=== PATIENT | female | born 1945 | race Caucasian/White ===

== ENCOUNTER 2017-09-10 18:52 | Emergency (ER) | payer MEDICARE, SELFPAY | END 2017-09-10 22:02 | disposition home or self-care (01) | PROVIDERS: Emergency Provider Emergency Medicine; Family Provider Internal Medicine; Visit Provider Emergency Medicine | DX: S42.201A Unspecified fracture of upper end of right humerus, initial encounter for closed fracture (principal); S62.616A Displaced fracture of proximal phalanx of right little finger, initial encounter for closed fracture; W01.0XXA Fall on same level from slipping, tripping and stumbling without subsequent striking against object, initial encounter; Y92.019 Unspecified place in single-family (private) house as the place of occurrence of the external cause | CPT/HCPCS: 29130; 73030; 73060; 73110; 73140; 96374; 96375; 99285; J2405 ==

== ENCOUNTER → 2018-04-11 15:31 | Outpatient (REF) | payer MEDICARE, SELFPAY | LOC: LAB 15:31 | PROVIDERS: Visit Provider Urology | DX: R39.89 Other symptoms and signs involving the genitourinary system (principal) | CPT/HCPCS: 87086; 87088; 87186 ==

== ENCOUNTER → 2018-04-18 13:20 | Outpatient (CLI) | payer MEDICARE, SELFPAY | PROVIDERS: PCP Internal Medicine; Visit Provider Internal Medicine | DX: G47.10 Hypersomnia, unspecified (principal); G47.30 Sleep apnea, unspecified; R06.83 Snoring; E66.9 Obesity, unspecified | CPT/HCPCS: 95806 ==

== ENCOUNTER 2018-05-02 09:52 | Outpatient (CLI) | payer MEDICARE, SELFPAY ==
[2018-05-02 09:55] VITALS: BMI 28.0
[2018-05-02 10:27] LABS: Albumin Level 3.6 gm/dL (3.4-5.0); Calcium 9.8 mg/dL (8.5-10.1); Creatinine Clearance Estimated 58 mL/min (0-300); Creatinine,Serum 0.85 mg/dL (0.55-1.02); Estimated Glomerular Filt Rate 66 ml/min (>60); GFR (African American) 80 ML/MIN (>60)
[2018-05-02 10:50] VITALS: BP 124/86; PULSE 74; RESP 18; TEMP 36.9
== END 2018-05-02 11:10 | disposition home or self-care (01) ==
LOC: INF 09:52
PROVIDERS: Family Provider Internal Medicine; PCP Internal Medicine; Visit Provider Internal Medicine
DX: M81.0 Age-related osteoporosis without current pathological fracture (principal)
CPT/HCPCS: 82040; 82310; 82565; 96374; J3489

== ENCOUNTER → 2018-05-23 17:20 | Outpatient (REF) | payer MEDICARE, SELFPAY | LOC: LAB 17:20 | PROVIDERS: Visit Provider Urology | DX: N30.20 Other chronic cystitis without hematuria (principal) | CPT/HCPCS: 87086; 87088; 87186 ==

== ENCOUNTER 2018-05-27 08:43 | Outpatient (CLI) | payer MEDICARE, SELFPAY ==
[2018-05-27 09:09] VITALS: BP 146/79; PULSE 79; RESP 18; TEMP 36.4; O2SAT 98; BMI 28.8
[2018-05-27 09:30] VITALS: BP 146/79; PULSE 18; RESP 20; TEMP 36.7; O2SAT 96
[2018-05-27 10:28] VITALS: BP 139/73; PULSE 68; RESP 20; TEMP 36.9; O2SAT 96
== END 2018-05-27 10:25 | disposition home or self-care (01) ==
LOC: INF 08:44
PROVIDERS: Family Provider Internal Medicine; PCP Internal Medicine; Visit Provider Urology
DX: N30.20 Other chronic cystitis without hematuria (principal)
CPT/HCPCS: 96365; J1335

== ENCOUNTER → 2018-05-28 08:49 | Outpatient (CLI) | payer MEDICARE, SELFPAY ==
[2018-05-28 09:02] VITALS: BP 146/77; PULSE 81; RESP 18; TEMP 36.2; O2SAT 98; BMI 28.8
[2018-05-28 09:55] VITALS: BP 149/81; PULSE 62; RESP 18; TEMP 36.3; O2SAT 98
== END ==
PROVIDERS: Family Provider Internal Medicine; PCP Internal Medicine; Visit Provider Urology
DX: N30.20 Other chronic cystitis without hematuria (principal)
CPT/HCPCS: 96365; J1335

== ENCOUNTER 2018-05-29 09:05 | Outpatient (CLI) | payer MEDICARE, SELFPAY ==
[2018-05-29 09:25] VITALS: BP 161/93; PULSE 89; RESP 20; TEMP 36.7; O2SAT 96
[2018-05-29 10:05] VITALS: BP 154/87; PULSE 68; RESP 20; TEMP 36.9; O2SAT 96
== END 2018-05-29 10:05 | disposition home or self-care (01) ==
LOC: INF 09:14
PROVIDERS: Family Provider Internal Medicine; PCP Internal Medicine; Visit Provider Urology
DX: N30.20 Other chronic cystitis without hematuria (principal)
CPT/HCPCS: 96365; J1335

== ENCOUNTER 2018-05-30 08:50 | Outpatient (CLI) | payer MEDICARE, SELFPAY ==
[2018-05-30 09:07] VITALS: BP 112/76; PULSE 64; RESP 18; TEMP 36.4; O2SAT 97
[2018-05-30 09:37] VITALS: BP 123/75; PULSE 69; RESP 18; O2SAT 96
[2018-05-30 09:55] VITALS: BP 131/65; PULSE 71; RESP 18; O2SAT 97
== END 2018-05-30 09:55 | disposition home or self-care (01) ==
LOC: INF 08:51
PROVIDERS: PCP Internal Medicine; Visit Provider Urology
DX: N30.20 Other chronic cystitis without hematuria (principal)
CPT/HCPCS: 96365; J1335

== ENCOUNTER 2018-05-31 08:40 | Outpatient (CLI) | payer MEDICARE, SELFPAY ==
[2018-05-31 09:04] VITALS: BP 132/71; PULSE 67; RESP 18; TEMP 36.6; O2SAT 98
[2018-05-31 09:34] VITALS: BP 129/74; PULSE 69; RESP 18; O2SAT 97
[2018-05-31 09:50] VITALS: BP 126/78; PULSE 58; RESP 18; O2SAT 98
== END 2018-05-31 09:55 | disposition home or self-care (01) ==
LOC: INF 08:53
PROVIDERS: Family Provider Internal Medicine; PCP Internal Medicine; Visit Provider Urology
DX: N30.20 Other chronic cystitis without hematuria (principal)
CPT/HCPCS: 96365; J1335

== ENCOUNTER 2018-06-01 08:50 | Outpatient (CLI) | payer MEDICARE, SELFPAY ==
[2018-06-01 09:27] VITALS: BP 135/79; PULSE 71; RESP 18; TEMP 36.6; O2SAT 98
[2018-06-01 09:57] VITALS: BP 131/74; PULSE 74; RESP 18; O2SAT 97
[2018-06-01 10:10] VITALS: BP 134/76; PULSE 76; RESP 18; O2SAT 98
== END 2018-06-01 10:15 | disposition home or self-care (01) ==
LOC: INF 08:52
PROVIDERS: PCP Internal Medicine; Visit Provider Urology
DX: N30.20 Other chronic cystitis without hematuria (principal)
CPT/HCPCS: 96365; J1335

== ENCOUNTER 2018-06-02 08:57 | Outpatient (CLI) | payer MEDICARE, SELFPAY ==
[2018-06-02 09:02] VITALS: BP 141/83; PULSE 65; RESP 18; TEMP 36.4; O2SAT 97
[2018-06-02 09:50] VITALS: BP 136/64; PULSE 60; RESP 18; TEMP 36.5; O2SAT 98
== END 2018-06-02 09:55 | disposition home or self-care (01) ==
LOC: INF 08:57
PROVIDERS: Family Provider Internal Medicine; PCP Internal Medicine; Visit Provider Urology
DX: N30.20 Other chronic cystitis without hematuria (principal)
CPT/HCPCS: 96365; J1335

== ENCOUNTER 2018-06-03 08:44 | Outpatient (CLI) | payer MEDICARE, SELFPAY ==
[2018-06-03 09:07] VITALS: BP 161/77; PULSE 92; RESP 18; O2SAT 100
== END 2018-06-03 09:50 | disposition home or self-care (01) ==
LOC: INF 08:45
PROVIDERS: Family Provider Internal Medicine; PCP Internal Medicine; Visit Provider Urology
DX: N30.20 Other chronic cystitis without hematuria (principal)
CPT/HCPCS: 96365; J1335

== ENCOUNTER 2018-06-04 08:38 | Outpatient (CLI) | payer MEDICARE, SELFPAY ==
[2018-06-04 08:45] VITALS: BP 144/78; PULSE 68; RESP 16; TEMP 36.5; O2SAT 95
== END 2018-06-04 10:00 | disposition home or self-care (01) ==
LOC: INF 08:39
PROVIDERS: Family Provider Internal Medicine; PCP Internal Medicine; Visit Provider Urology
DX: N30.20 Other chronic cystitis without hematuria (principal)
CPT/HCPCS: 96365; J1335

== ENCOUNTER 2018-06-05 08:56 | Outpatient (CLI) | payer MEDICARE, SELFPAY ==
[2018-06-05 09:10] VITALS: BP 132/77; PULSE 71; RESP 18; TEMP 36.6; O2SAT 99
[2018-06-05 09:40] VITALS: BP 130/78; PULSE 76; RESP 18; O2SAT 98
[2018-06-05 09:50] VITALS: BP 131/72; PULSE 74; RESP 18; O2SAT 99
== END 2018-06-05 09:55 | disposition home or self-care (01) ==
LOC: INF 08:56
PROVIDERS: Family Provider Internal Medicine; PCP Internal Medicine; Visit Provider Urology
DX: N30.20 Other chronic cystitis without hematuria (principal)
CPT/HCPCS: 96365; J1335

== ENCOUNTER → 2018-06-13 16:49 | Outpatient (REF) | payer MEDICARE, SELFPAY | LOC: LAB 16:49 | PROVIDERS: Visit Provider Urology | DX: N30.20 Other chronic cystitis without hematuria (principal) | CPT/HCPCS: 87086; 87088; 87186 ==

== ENCOUNTER → 2018-07-04 16:52 | Outpatient (CLI) | payer MEDICARE, SELFPAY | PROVIDERS: Visit Provider Urology | DX: N39.0 Urinary tract infection, site not specified (principal) | CPT/HCPCS: 87086 ==

== ENCOUNTER → 2019-01-09 16:38 | Outpatient (CLI) | payer MEDICARE, SELFPAY | PROVIDERS: Visit Provider Urology | DX: R39.89 Other symptoms and signs involving the genitourinary system (principal) | CPT/HCPCS: 87086; 87088; 87186 ==

== ENCOUNTER → 2019-02-06 16:36 | Outpatient (CLI) | payer MEDICARE, SELFPAY | PROVIDERS: Visit Provider Urology | DX: N39.0 Urinary tract infection, site not specified (principal) | CPT/HCPCS: 87086; 87088; 87186 ==

== ENCOUNTER 2019-02-09 12:40 | Outpatient (CLI) | payer MEDICARE, SELFPAY ==
[2019-02-09 13:12] VITALS: BP 151/94; PULSE 77; RESP 20; TEMP 36.9; O2SAT 95
[2019-02-09 13:40] VITALS: BP 145/74; PULSE 68; RESP 20; TEMP 36.9
== END 2019-02-09 13:40 | disposition home or self-care (01) ==
LOC: INF 12:40
PROVIDERS: Visit Provider Urology
DX: N39.0 Urinary tract infection, site not specified (principal)
CPT/HCPCS: 96365; J1335

== ENCOUNTER 2019-02-10 12:32 | Outpatient (CLI) | payer MEDICARE, SELFPAY ==
[2019-02-10 12:49] VITALS: BP 143/76; PULSE 67; RESP 16; O2SAT 98
[2019-02-10 13:43] VITALS: BP 136/79; PULSE 77; RESP 16; O2SAT 97
== END 2019-02-10 14:20 | disposition home or self-care (01) ==
LOC: INF 12:35
PROVIDERS: PCP Internal Medicine; Visit Provider Urology
DX: N39.0 Urinary tract infection, site not specified (principal)
CPT/HCPCS: 96365; J1335

== ENCOUNTER → 2019-02-11 11:41 | Outpatient (CLI) | payer MEDICARE, SELFPAY ==
[2019-02-11 12:35] VITALS: BP 120/72; PULSE 62; RESP 18; O2SAT 98
[2019-02-11 12:55] VITALS: BP 128/72; PULSE 70; RESP 18; O2SAT 97
== END ==
PROVIDERS: PCP Internal Medicine; Visit Provider Urology
DX: N39.0 Urinary tract infection, site not specified (principal)
CPT/HCPCS: 96365; J1335

== ENCOUNTER → 2019-02-12 12:25 | Outpatient (CLI) | payer MEDICARE, SELFPAY ==
[2019-02-12 13:03] VITALS: BP 144/76; PULSE 71; RESP 18; TEMP 36.8; O2SAT 99; BMI 29.4
[2019-02-12 13:16] LABS: Anion Gap 10.4 mEq/L (5-15); Blood Urea Nitrogen 20 mg/dL (7-18); Calcium 9.9 mg/dL (8.5-10.1); Carbon Dioxide 28 mmol/L (21.0-32.0); Chloride 107 mmol/L (98-107); Creatinine Clearance Estimated 60 mL/min (50-200); Creatinine,Serum 0.93 mg/dL (0.55-1.02); Estimated Glomerular Filt Rate 59 ml/min (>60); GFR (African American) 72 ML/MIN (>60); Glucose 90 mg/dL (74-106); Potassium 4.4 mmoL/L (3.5-5.1); Sodium 141 mmol/L (136-145)
[2019-02-12 14:28] VITALS: BP 170/80; PULSE 75; RESP 16; TEMP 36.6; O2SAT 98
--- NOTE | 2019-02-12 14:30 | PC.NURSE ---
PT HAD A ELEVATED BP OF 170/80. PT STATES SHE IS NOT ON ANY BLOOD PRESSURE MEDICATION AND EVERY TIME SHE GOES TO THE DOCTOR IT IS HIGH. PT STATED SHE WOULD TAKE BP WHEN SHE GOT HOME AND IF IT WAS NOT ANY BETTER SHE WOULD MAKE A DOCTORS APPOINTMENT FOR THIS WEEK.
== END ==
PROVIDERS: PCP Internal Medicine; Visit Provider Urology
DX: N39.0 Urinary tract infection, site not specified (principal)
CPT/HCPCS: 80048; 96365; G0463; J1335

== ENCOUNTER 2019-02-13 12:30 | Outpatient (CLI) | payer MEDICARE, SELFPAY ==
[2019-02-13 12:30] VITALS: BP 152/94; PULSE 72; RESP 20; TEMP 36.8; O2SAT 100
[2019-02-13 12:49] VITALS: BP 152/94; PULSE 77; RESP 20; TEMP 36.8; O2SAT 98
[2019-02-13 13:25] VITALS: BP 166/98; PULSE 70; RESP 18; TEMP 36.8; O2SAT 98
[2019-02-13 13:36] VITALS: BMI 29.2
== END 2019-02-13 13:25 | disposition home or self-care (01) ==
LOC: INF 13:11
PROVIDERS: Visit Provider Urology
DX: N39.0 Urinary tract infection, site not specified (principal)
CPT/HCPCS: 96365; J1335

== ENCOUNTER 2019-02-14 10:03 | Outpatient (CLI) | payer MEDICARE, SELFPAY ==
[2019-02-14 10:18] VITALS: BP 154/83; PULSE 68; RESP 18; TEMP 36.6; O2SAT 96
[2019-02-14 11:00] VITALS: BP 132/81; PULSE 64; RESP 16; TEMP 36.7; O2SAT 99
== END 2019-02-14 11:00 | disposition home or self-care (01) ==
LOC: INF 10:03
PROVIDERS: Visit Provider Urology
DX: N39.0 Urinary tract infection, site not specified (principal)
CPT/HCPCS: 96365; J1335

== ENCOUNTER 2019-02-15 09:44 | Outpatient (CLI) | payer MEDICARE, SELFPAY ==
[2019-02-15 10:15] VITALS: BP 141/90; PULSE 61; RESP 18; TEMP 36.8; O2SAT 94
[2019-02-15 11:05] VITALS: BP 149/80; PULSE 63; RESP 18; O2SAT 99
== END 2019-02-15 11:05 | disposition home or self-care (01) ==
LOC: INF 09:44
PROVIDERS: Visit Provider Urology
DX: N39.0 Urinary tract infection, site not specified (principal)
CPT/HCPCS: 96365; J1335

== ENCOUNTER 2019-02-16 10:25 | Outpatient (CLI) | payer MEDICARE, SELFPAY ==
[2019-02-16 10:25] VITALS: BP 131/76; PULSE 64; RESP 18; TEMP 36.8; O2SAT 100
[2019-02-16 10:26] VITALS: BP 135/70; PULSE 72; RESP 18; TEMP 36.9; O2SAT 95
== END 2019-02-16 11:42 | disposition home or self-care (01) ==
LOC: INF 10:25
PROVIDERS: Visit Provider Urology
DX: N39.0 Urinary tract infection, site not specified (principal)
CPT/HCPCS: 96365; J1335

== ENCOUNTER 2019-02-17 09:49 | Outpatient (CLI) | payer MEDICARE, SELFPAY ==
[2019-02-17 09:49] VITALS: BP 149/84; PULSE 66; RESP 16; TEMP 36.8; O2SAT 99
[2019-02-17 10:13] VITALS: BP 149/84; PULSE 66; RESP 16; TEMP 36.8; O2SAT 99; BMI 26.6
== END 2019-02-17 10:45 | disposition home or self-care (01) ==
LOC: INF 09:50
PROVIDERS: PCP Internal Medicine; Visit Provider Urology
DX: N39.0 Urinary tract infection, site not specified (principal)
CPT/HCPCS: 96365; J1335

== ENCOUNTER → 2019-02-18 12:25 | Outpatient (CLI) | payer MEDICARE, SELFPAY ==
[2019-02-18 12:25] VITALS: BP 177/83; PULSE 65; RESP 16; TEMP 36.7; O2SAT 98
[2019-02-18 12:40] VITALS: BP 156/77; PULSE 70; RESP 18; TEMP 36.6; O2SAT 98
== END ==
PROVIDERS: PCP Urology; Visit Provider Urology
DX: N39.0 Urinary tract infection, site not specified (principal)
CPT/HCPCS: 96365; J1335

== ENCOUNTER 2019-02-19 09:50 | Outpatient (CLI) | payer MEDICARE, SELFPAY ==
[2019-02-19 09:54] VITALS: BP 168/83; PULSE 74; RESP 16; TEMP 36.8; O2SAT 97; BMI 29.2
[2019-02-19 10:35] VITALS: BP 140/73; PULSE 64; RESP 18; TEMP 36.8; O2SAT 97
[2019-02-19 11:00] VITALS: BP 141/78; PULSE 68; RESP 18; O2SAT 97
== END 2019-02-19 11:00 | disposition home or self-care (01) ==
LOC: INF 09:52
PROVIDERS: Visit Provider Urology
DX: N39.0 Urinary tract infection, site not specified (principal)
CPT/HCPCS: 96365; J1335

== ENCOUNTER 2019-02-20 09:52 | Outpatient (CLI) | payer MEDICARE, SELFPAY ==
[2019-02-20 10:18] VITALS: BP 149/84; PULSE 64; RESP 18; O2SAT 100
[2019-02-20 11:13] VITALS: BP 151/77; PULSE 62; RESP 16; O2SAT 100
== END 2019-02-20 11:12 | disposition home or self-care (01) ==
LOC: INF 09:52
PROVIDERS: Visit Provider Urology
DX: N39.0 Urinary tract infection, site not specified (principal)
CPT/HCPCS: 96365; J1335

== ENCOUNTER 2019-02-21 09:40 | Outpatient (CLI) | payer MEDICARE, SELFPAY ==
[2019-02-21 09:56] VITALS: BP 125/71; PULSE 70; RESP 18; O2SAT 95; BMI 29.2
[2019-02-21 11:11] VITALS: BP 142/84; PULSE 61; RESP 18; O2SAT 94
== END 2019-02-21 11:11 | disposition home or self-care (01) ==
LOC: INF 09:46
PROVIDERS: Visit Provider Urology
DX: N39.0 Urinary tract infection, site not specified (principal)
CPT/HCPCS: 96365; J1335

== ENCOUNTER 2019-02-22 10:02 | Outpatient (CLI) | payer MEDICARE, SELFPAY ==
[2019-02-22 10:28] VITALS: BP 142/71; PULSE 71; RESP 18; TEMP 36.6; O2SAT 98
[2019-02-22 11:15] VITALS: BP 144/79; PULSE 74; RESP 18; TEMP 36.7; O2SAT 98
== END 2019-02-22 11:20 | disposition home or self-care (01) ==
LOC: INF 10:02
PROVIDERS: Visit Provider Urology
DX: N39.0 Urinary tract infection, site not specified (principal); B96.20 Unspecified Escherichia coli [E. coli] as the cause of diseases classified elsewhere
CPT/HCPCS: 96365; J1335

== ENCOUNTER 2019-02-23 09:40 | Outpatient (CLI) | payer MEDICARE, SELFPAY ==
[2019-02-23 09:58] VITALS: BP 140/70; PULSE 66; RESP 18; O2SAT 95
[2019-02-23 10:40] VITALS: BP 151/76; PULSE 68; RESP 18
== END 2019-02-23 10:45 | disposition home or self-care (01) ==
LOC: INF 09:42
PROVIDERS: Visit Provider Urology
DX: N39.0 Urinary tract infection, site not specified (principal)
CPT/HCPCS: 96365; J1335

== ENCOUNTER 2019-02-24 09:44 | Outpatient (CLI) | payer MEDICARE, SELFPAY ==
[2019-02-24 10:29] VITALS: BP 159/70; PULSE 85; RESP 18; TEMP 36.6; O2SAT 96
[2019-02-24 11:06] VITALS: BP 145/72; PULSE 75; RESP 18; O2SAT 96
== END 2019-02-24 11:08 | disposition home or self-care (01) ==
LOC: INF 09:45
PROVIDERS: PCP Internal Medicine; Visit Provider Urology
DX: N39.0 Urinary tract infection, site not specified (principal)
CPT/HCPCS: 96365; J1335

== ENCOUNTER 2019-02-25 12:26 | Outpatient (CLI) | payer MEDICARE, SELFPAY ==
[2019-02-25 12:35] VITALS: BP 158/79; PULSE 66; RESP 16; O2SAT 98
--- NOTE | 2019-02-25 13:00 | PC.NURSE ---
New IV started by Madina Quezada RN; 20 RFA
== END 2019-02-25 13:48 | disposition home or self-care (01) ==
PROVIDERS: PCP Internal Medicine; Visit Provider Urology
DX: N39.0 Urinary tract infection, site not specified (principal)
CPT/HCPCS: 96365; J1335

== ENCOUNTER 2019-02-26 09:57 | Outpatient (CLI) | payer MEDICARE, SELFPAY ==
[2019-02-26 10:02] VITALS: BMI 29.2
[2019-02-26 10:34] LABS: Anion Gap 13.2 mEq/L (5-15); Blood Urea Nitrogen 16 mg/dL (7-18); Calcium 10.3 mg/dL (8.5-10.1); Carbon Dioxide 26 mmol/L (21.0-32.0); Chloride 108 mmol/L (98-107); Creatinine Clearance Estimated 59 mL/min (50-200); Creatinine,Serum 0.76 mg/dL (0.55-1.02); Estimated Glomerular Filt Rate 75 ml/min (>60); GFR (African American) 90 ML/MIN (>60); Glucose 83 mg/dL (74-106); Potassium 4.2 mmoL/L (3.5-5.1); Sodium 143 mmol/L (136-145)
[2019-02-26 10:43] VITALS: BP 142/84; PULSE 60; RESP 18; TEMP 36.6; O2SAT 98
[2019-02-26 11:35] VITALS: BP 146/81; PULSE 68; RESP 18; TEMP 36.6; O2SAT 98
== END 2019-02-26 11:40 | disposition home or self-care (01) ==
LOC: INF 09:57
PROVIDERS: Visit Provider Urology
DX: N39.0 Urinary tract infection, site not specified (principal)
CPT/HCPCS: 80048; 96365; J1335

== ENCOUNTER 2019-02-27 10:06 | Outpatient (CLI) | payer MEDICARE, SELFPAY ==
[2019-02-27 10:00] VITALS: BP 158/88; PULSE 67; RESP 20; TEMP 36.9; O2SAT 99
[2019-02-27 10:59] VITALS: BP 151/91; PULSE 63; RESP 18; TEMP 36.9; O2SAT 99
== END 2019-02-27 11:00 | disposition home or self-care (01) ==
LOC: INF 10:06
PROVIDERS: Visit Provider Urology
DX: N39.0 Urinary tract infection, site not specified (principal)
CPT/HCPCS: 96365; J1335

== ENCOUNTER 2019-03-01 09:51 | Outpatient (CLI) | payer MEDICARE, SELFPAY ==
[2019-03-01 10:05] VITALS: BP 133/74; PULSE 70; RESP 18; TEMP 36.4
[2019-03-01 10:50] VITALS: BP 157/88; PULSE 62; RESP 18; TEMP 36.6
== END 2019-03-01 11:00 | disposition home or self-care (01) ==
LOC: INF 09:51
PROVIDERS: Visit Provider Urology
DX: N39.0 Urinary tract infection, site not specified (principal)
CPT/HCPCS: 96365; J1335

== ENCOUNTER 2019-03-02 10:11 | Outpatient (CLI) | payer MEDICARE, SELFPAY ==
[2019-03-02 10:30] VITALS: BP 149/78; PULSE 64; RESP 18; TEMP 36.9; O2SAT 95
[2019-03-02 10:55] VITALS: BP 155/78; PULSE 68; RESP 20; TEMP 36.9; O2SAT 95
== END 2019-03-02 11:00 | disposition home or self-care (01) ==
LOC: INF 10:11
PROVIDERS: Visit Provider Urology
DX: N39.0 Urinary tract infection, site not specified (principal)
CPT/HCPCS: 96365; J1335

== ENCOUNTER → 2019-03-12 13:28 | Outpatient (CLI) | payer MEDICARE, SELFPAY | PROVIDERS: Visit Provider Urology | DX: N39.0 Urinary tract infection, site not specified (principal) | CPT/HCPCS: 87086; 87088; 87186 ==

== ENCOUNTER → 2019-04-24 16:09 | Outpatient (CLI) | payer MEDICARE, SELFPAY | PROVIDERS: Visit Provider Urology | DX: N30.20 Other chronic cystitis without hematuria (principal) | CPT/HCPCS: 87086; 87088; 87186 ==

== ENCOUNTER 2020-12-23 12:16 | Emergency (ER) | payer MEDICARE, SELFPAY ==
[2020-12-23 12:23] VITALS: BP 183/99; PULSE 82; RESP 16; TEMP 36.4; O2SAT 98; BMI 29.2
--- NOTE | 2020-12-23 12:31 | XR_ITS ---
PROCEDURE: XR NASAL BONES MIN 3V CLINICAL INDICATION: fall, pain COMPARISON: No exams were available for comparison FINDINGS: No fracture or dislocation. No sinus air-fluid level. Other findings:None. IMPRESSION: No acute findings. Dictated by: Dewayne Nation MD 12/23/2020 13:25 Dewayne Nation MD in [place] 12/23/2020 13:25
--- NOTE | 2020-12-23 12:31 | XR_ITS ---
PROCEDURE: XR HAND LT MIN 3V CLINICAL INDICATION: fall, pain palm and thumb COMPARISON: No exams were available for comparison FINDINGS: No fracture or dislocation. No lytic or blastic change. There is normal mineralization. Mild spurring is present along the 1st interphalangeal joint and 2nd DIP joint. Other findings:None. IMPRESSION: No acute findings. Dictated by: Dewayne Nation MD 12/23/2020 13:24 Dewayne Nation MD in [facility] 12/23/2020 13:24
--- NOTE | 2020-12-23 12:33 | [facility].EDFALL ---
ED Disposition Clinical Impression: Fall Nasal contusion Qualifiers: Encounter type: initial encounter Qualified Code(s): S00.33XA - Contusion of nose, initial encounter Disposition: Home, Self-Care Condition on Discharge: Fair Additional Instructions: You have been evaluated for fall, nasal trauma. No fractures identified. Please practice sinus precautions, do not blow your nose, do not drink through a straw. Take Tylenol and Motrin for pain. Follow-up with your primary care doctor. Referrals: Clemente Levine [Primary Care Provider] - Time of Disposition: 13:40 - Critical Care Critical Care Time: No Attestation: On 12/23/20, the high probability of a clinically significant, sudden or life threatening deterioration of the following system(s) required my full and direct attention, intervention and personal management. The time I documented below is in addition to time spent performing reported procedures but includes the following listed in this critical care notation. Medical Decision Making - Medical Records Medical records reviewed: Yes: I reviewed the patient's medical records. - Alvin Inquiry Pt receiving controlled substance: No Vital Signs: 12/23/20 12:23 Temperature 97.6 F Temperature Source Oral Pulse Rate [Radial] 82 Respiratory Rate 16 Blood Pressure [Right Arm] 183/99 H Blood Pressure Mean [Right Arm] 127 Blood Pressure Position [Right Arm] Sitting 02 Sat by Pulse Oximetry 98 Oxygen Delivery Method Room Air Orders (Tests/Meds): ED MEDICATIONS Discontinued Medications Generic Name Dose Route Start Last Admin Trade Name Freq PRN Reason Stop Dose Admin Acetaminophen 650 mg 12/23/20 12:32 12/23/20 12:41 Acetaminophen 325mg Tab PO 12/23/20 12:33 650 mg ONCE ONE Administration Ibuprofen 400 mg 12/23/20 12:32 12/23/20 12:42 Ibuprofen 400 Mg Tablet PO 12/23/20 12:33 400 mg ONCE ONE Administration Tetanus/Reduced Diphtheria/Acell Pertussis 0.5 ml 12/23/20 12:58 12/23/20 13:12 Tet/Diphth/Pert-Adult 0.5ml Syringe IM 12/23/20 12:59 0.5 ml .ONCE ONE Administration Medical Decision Narrative: In summary this is a 75-year-old female presenting to the emergency department with nasal pain and pain on the palms after a fall. Patient clinically stable on arrival. Vital signs within normal limits. No bony tenderness on the right hand. She does have tenderness over the metacarpals on the left. Will obtain x-rays of the left hand and nasal bones. X-ray of the nasal bones shows no fracture. Patient counseled on conservative management and sinus precautions X-rays of the left hand show no fracture or dislocation. Patient does not have tenderness over the anatomic snuffbox or with axial loading. Doubt occult scaphoid fracture. Patient was counseled on this risk and recommended to follow-up with her PCP. Fall HPI - General Chief Complaint: Fall Stated Complaint: ao 12/23/20 @1200 poss broken nose Time Seen by Provider: 12/23/20 12:33 Mode of Arrival: Ambulatory Limitations: No Limitations Description of Symptoms (Recalled from ER Triage Doc. by RN): TO ED PER [employer] CAR WITH C/O FALL PT STATES WALKING HER DOG AND LEASE WRAPPED AROUND HER LEGS AND SHE TRIPPED PT HIT FACE ON BLACKTOP C/O PAIN BLEEDING NOSE. ALSO C/O AMANDO HAND AND WRIST PAIN WITH FOOSH INJURY. PT DENIES ANY LOC - History of Present Illness HPI Narrative: 75-year-old female presenting to the emergency department with left hand and nasal pain after a fall. She was walking her dog when she tripped and fell forward. She caught herself with both of her hands but struck her nose on the ground. Was able to get up. Negative LOC. Had burning pain on both of her palms, near the thumb. Pain is worse on the left. Has pain with thumb motion. No numbness, weakness, tingling in her fingers. Has pain in her nose that is dull and throbbing. Has an abrasion on the left side. No other lacerations. No fo
--- NOTE | 2020-12-23 13:46 | PC.NURSE ---
updating pt on results
[2020-12-23 13:52] VITALS: BP 135/78; PULSE 76; RESP 16; TEMP 36.8; O2SAT 98
== END 2020-12-23 13:55 | disposition home or self-care (01) ==
PROVIDERS: Emergency Provider Emergency Medicine; PCP Internal Medicine
DX: S00.33XA Contusion of nose, initial encounter (principal); W01.0XXA Fall on same level from slipping, tripping and stumbling without subsequent striking against object, initial encounter; Y93.K1 Activity, walking an animal; Y92.89 Other specified places as the place of occurrence of the external cause; Z23 Encounter for immunization; R03.0 Elevated blood-pressure reading, without diagnosis of hypertension
CPT/HCPCS: 70160; 73130; 90471; 90715; 99281

== ENCOUNTER → 2021-04-06 15:16 | Outpatient (CLI) | payer MEDICARE, SELFPAY ==
[2021-04-06 17:28] LABS: Chloride 109 mmol/L (98-107)
[2021-04-06 17:29] LABS: Potassium 4.6 mmoL/L (3.5-5.1); Sodium 139 mmol/L (136-145)
[2021-04-06 17:31] LABS: Blood Urea Nitrogen 18 mg/dl (7-17); Estimated Glomerular Filt Rate 70 ml/min (>60); GFR (African American) 85 ML/MIN (>60)
[2021-04-06 17:32] LABS: Anion Gap 10.6 mEq/L (5-15); Calcium 10.1 mg/dl (8.4-10.2); Carbon Dioxide 24 mmol/L (22.0-30.0); Glucose 80 mg/dl (74-100)
== END ==
PROVIDERS: Visit Provider Internal Medicine
DX: R10.9 Unspecified abdominal pain (principal); E83.52 Hypercalcemia
CPT/HCPCS: 80048

== ENCOUNTER → 2021-07-08 17:31 | Outpatient (CLI) | payer MEDICARE, SELFPAY ==
[2021-07-08 18:41] LABS: Alanine Aminotransferase 24 U/L (12-78); Albumin/Globulin Ratio 1.5 (1.1-1.8); Alkaline Phosphatase 102 U/L (38-126); Anion Gap 12.3 mEq/L (5-15); Aspartate Amino Transferase 31 U/L (14-36); Bilirubin,Total 0.5 mg/dl (0.2-1.3); Blood Urea Nitrogen 19 mg/dl (7-17); Calcium 10.6 mg/dl (8.4-10.2); Carbon Dioxide 29 mmol/L (22.0-30.0); Chloride 104 mmol/L (98-107); Chol/HDL Ratio 3.4 (1-3.5); Cholesterol 236 mg/dl (140-200); Estimated Glomerular Filt Rate 82 ml/min (>60); GFR (African American) 99 ML/MIN (>60); Globulin 2.6 g/dL (1.3-3.2); Glucose 61 mg/dl (74-100); HDL Cholesterol 69 mg/dl (40-60); Potassium 4.3 mmoL/L (3.5-5.1); Sodium 141 mmol/L (136-145); Total Protein,Serum 6.6 g/dl (6.3-8.2); Triglycerides 159 mg/dl (30-150); VLDL Cholesterol 32 mg/dL (0-40)
[2021-07-08 18:53] LABS: Direct LDL Cholesterol 123.67 mg/dL (100-129)
== END ==
PROVIDERS: Visit Provider Internal Medicine
DX: I10 Essential (primary) hypertension (principal); E78.5 Hyperlipidemia, unspecified; E55.9 Vitamin D deficiency, unspecified; M81.0 Age-related osteoporosis without current pathological fracture
CPT/HCPCS: 80053; 80061; 82306

== ENCOUNTER → 2021-09-22 14:42 | Outpatient (CLI) | payer MEDICARE, SELFPAY | PROVIDERS: Visit Provider Urology | DX: N39.0 Urinary tract infection, site not specified (principal); B96.4 Proteus (mirabilis) (morganii) as the cause of diseases classified elsewhere | CPT/HCPCS: 87086; 87088; 87186 ==

== ENCOUNTER → 2021-10-27 09:56 | Outpatient (POV) | payer MEDICARE, SELFPAY | PROVIDERS: Visit Provider Dermatology | DX: Z00.00 Encounter for general adult medical examination without abnormal findings (principal) ==

== ENCOUNTER → 2022-01-06 12:44 | Outpatient (CLI) | payer MEDICARE, SELFPAY ==
[2022-01-06 14:59] LABS: Basophils # 0.1 K/mm3 (0-0.2); Basophils % 0.9 % (0.1-2.0); Eosinophils # 0.1 K/mm3 (0.0-0.4); Eosinophils % 1.8 % (0.1-12.0); Hematocrit 40.9 % (37.0-47.0); Lymphocytes # 1.6 K/mm3 (0.7-4.5); Lymphocytes % 27.8 % (10-50); Mean Corpuscular HGB Conc 31.8 g/dL (31.8-35.4); Mean Corpuscular Hemoglobin 31.7 pg (27.0-31.2); Mean Corpuscular Volume 99.9 fl (81-99); Mean Platelet Volume 9.4 fl (7.4-10.4); Monocytes # 0.5 K/mm3 (0.1-1.0); Neutrophils # 3.4 K/mm3 (1.8-7.8); Neutrophils % 61.5 % (37.0-80.0); Platelet Count 315 K/mm3 (142-424); Red Blood Count 4.09 M/mm3 (4.20-5.40); Red Cell Distribution Width 13.7 % (11.5-17.5); White Blood Count 5.6 K/mm3 (4.8-10.8)
[2022-01-06 15:30] LABS: Alanine Aminotransferase 20 U/L (12-78); Albumin Level 4.2 g/dl (3.5-5.0); Albumin/Globulin Ratio 1.8 (1.1-1.8); Alkaline Phosphatase 85 U/L (38-126); Anion Gap 8.2 mEq/L (5-15); Aspartate Amino Transferase 26 U/L (14-36); Bilirubin,Total 0.6 mg/dl (0.2-1.3); Blood Urea Nitrogen 21 mg/dl (7-17); Calcium 10.4 mg/dl (8.4-10.2); Carbon Dioxide 29 mmol/L (22.0-30.0); Chloride 106 mmol/L (98-107); Chol/HDL Ratio 3.3 (1-3.5); Cholesterol 242 mg/dl (140-200); Estimated Glomerular Filt Rate 81 ml/min (>60); GFR (African American) 98 ML/MIN (>60); Globulin 2.4 g/dL (1.3-3.2); Glucose 70 mg/dl (74-100); HDL Cholesterol 74 mg/dl (40-60); Potassium 4.2 mmoL/L (3.5-5.1); Sodium 139 mmol/L (136-145); Total Protein,Serum 6.6 g/dl (6.3-8.2); Triglycerides 117 mg/dl (30-150); VLDL Cholesterol 23 mg/dL (0-40)
[2022-01-06 15:41] LABS: Direct LDL Cholesterol 119.57 mg/dL (100-129)
[2022-01-06 17:39] LABS: 25-OH Vitamin D, Total 73.8 ng/mL (30-100)
== END ==
PROVIDERS: PCP Internal Medicine; Visit Provider Internal Medicine
DX: E78.5 Hyperlipidemia, unspecified (principal); K21.9 Gastro-esophageal reflux disease without esophagitis; E55.9 Vitamin D deficiency, unspecified; M81.0 Age-related osteoporosis without current pathological fracture; Z83.49 Family history of other endocrine, nutritional and metabolic diseases
CPT/HCPCS: 80053; 80061; 82306; 85025

== ENCOUNTER → 2022-01-15 10:20 | Outpatient (CLI) | payer MEDICARE, SELFPAY | PROVIDERS: Visit Provider Internal Medicine | DX: E83.52 Hypercalcemia (principal) ==

== ENCOUNTER → 2022-01-19 10:40 | Outpatient (POV) | payer MEDICARE, SELFPAY | PROVIDERS: Visit Provider Dermatology | DX: Z00.00 Encounter for general adult medical examination without abnormal findings (principal) ==

== ENCOUNTER → 2022-07-07 13:32 | Outpatient (CLI) | payer MEDICARE, SELFPAY ==
[2022-07-07 15:20] LABS: Anion Gap 16.5 mEq/L (5-15); Blood Urea Nitrogen 20 mg/dl (7-17); Calcium 9.9 mg/dl (8.4-10.2); Carbon Dioxide 25 mmol/L (22.0-30.0); Chloride 103 mmol/L (98-107); Estimated Glomerular Filt Rate 81 ml/min (>60); GFR (African American) 98 ML/MIN (>60); Glucose 67 mg/dl (74-100); Potassium 4.5 mmoL/L (3.5-5.1); Sodium 140 mmol/L (136-145)
== END ==
PROVIDERS: PCP Internal Medicine; Visit Provider Internal Medicine
DX: E78.5 Hyperlipidemia, unspecified (principal); K55.9 Vascular disorder of intestine, unspecified; M81.0 Age-related osteoporosis without current pathological fracture
CPT/HCPCS: 80048

== ENCOUNTER → 2022-07-19 13:43 | Outpatient (CLI) | payer MEDICARE, SELFPAY | PROVIDERS: PCP Internal Medicine; Visit Provider Urology | DX: N39.0 Urinary tract infection, site not specified (principal); B96.1 Klebsiella pneumoniae [K. pneumoniae] as the cause of diseases classified elsewhere | CPT/HCPCS: 87086; 87088; 87186 ==

== ENCOUNTER → 2022-08-10 09:56 | Outpatient (POV) | payer MEDICARE, SELFPAY | PROVIDERS: Visit Provider Dermatology | DX: Z00.00 Encounter for general adult medical examination without abnormal findings (principal) ==

== ENCOUNTER → 2023-01-11 12:15 | Outpatient (CLI) | payer MEDICARE, SELFPAY ==
[2023-01-11 12:54] LABS: Basophils % 0.7 % (0.1-2.0); Eosinophils # 0.2 K/mm3 (0.0-0.4); Eosinophils % 2.7 % (0.1-12.0); Hemoglobin 12.4 g/dL (12.2-16.2); Lymphocytes # 1.6 K/mm3 (0.7-4.5); Lymphocytes % 29.7 % (10-50); Mean Corpuscular HGB Conc 31.1 g/dL (31.8-35.4); Mean Corpuscular Hemoglobin 30.4 pg (27.0-31.2); Mean Corpuscular Volume 97.7 fl (81-99); Mean Platelet Volume 8.4 fl (7.4-10.4); Monocytes # 0.4 K/mm3 (0.1-1.0); Monocytes % 7.7 % (1.7-9.3); Neutrophils # 3.3 K/mm3 (1.8-7.8); Neutrophils % 59.2 % (37.0-80.0); Platelet Count 311 K/mm3 (142-424); Red Blood Count 4.09 M/mm3 (4.20-5.40); Red Cell Distribution Width 13.3 % (11.5-17.5); White Blood Count 5.5 K/mm3 (4.8-10.8)
[2023-01-11 13:45] LABS: Alanine Aminotransferase 20 U/L (12-78); Albumin Level 3.9 g/dl (3.5-5.0); Albumin/Globulin Ratio 1.6 (1.1-1.8); Alkaline Phosphatase 97 U/L (38-126); Anion Gap 11.1 mEq/L (5-15); Aspartate Amino Transferase 25 U/L (14-36); Bilirubin,Total 0.6 mg/dl (0.2-1.3); Blood Urea Nitrogen 20 mg/dl (7-17); Calcium 9.8 mg/dl (8.4-10.2); Carbon Dioxide 29 mmol/L (22.0-30.0); Chloride 104 mmol/L (98-107); Chol/HDL Ratio 3.5 (1-3.5); Cholesterol 235 mg/dl (140-200); Estimated Glomerular Filt Rate 70 ml/min (>60); GFR (African American) 84 ML/MIN (>60); Globulin 2.5 g/dL (1.3-3.2); Glucose 68 mg/dl (74-100); HDL Cholesterol 67 mg/dl (40-60); Potassium 4.1 mmoL/L (3.5-5.1); Sodium 140 mmol/L (136-145); Total Protein,Serum 6.4 g/dl (6.3-8.2); Triglycerides 95 mg/dl (30-150); VLDL Cholesterol 19 mg/dL (0-40)
[2023-01-11 13:56] LABS: Direct LDL Cholesterol 126.07 mg/dL (100-129)
[2023-01-11 18:23] LABS: 25-OH Vitamin D, Total 62.3 ng/mL (30-100)
== END ==
PROVIDERS: PCP Internal Medicine; Visit Provider Internal Medicine
DX: E78.5 Hyperlipidemia, unspecified (principal); E55.9 Vitamin D deficiency, unspecified; K21.9 Gastro-esophageal reflux disease without esophagitis; M81.0 Age-related osteoporosis without current pathological fracture
CPT/HCPCS: 80053; 80061; 82306; 85025

== ENCOUNTER → 2023-07-13 12:36 | Outpatient (CLI) | payer MEDICARE, SELFPAY ==
[2023-07-13 14:48] LABS: Alanine Aminotransferase 24 U/L (12-78); Albumin Level 4.3 g/dl (3.5-5.0); Albumin/Globulin Ratio 1.7 (1.1-1.8); Alkaline Phosphatase 85 U/L (38-126); Anion Gap 11.4 mEq/L (5-15); Aspartate Amino Transferase 31 U/L (14-36); Bilirubin,Total 0.5 mg/dl (0.2-1.3); Blood Urea Nitrogen 20 mg/dl (7-17); Calcium 10.3 mg/dl (8.4-10.2); Carbon Dioxide 29 mmol/L (22.0-30.0); Chloride 104 mmol/L (98-107); Chol/HDL Ratio 3.8 (1-3.5); Cholesterol 254 mg/dl (140-200); Estimated Glomerular Filt Rate 70 ml/min (>60); GFR (African American) 84 ML/MIN (>60); Globulin 2.5 g/dL (1.3-3.2); Glucose 73 mg/dl (74-100); HDL Cholesterol 66 mg/dl (40-60); Potassium 4.4 mmoL/L (3.5-5.1); Sodium 140 mmol/L (136-145); Total Protein,Serum 6.8 g/dl (6.3-8.2); Triglycerides 98 mg/dl (30-150); VLDL Cholesterol 20 mg/dL (0-40)
[2023-07-13 14:58] LABS: Direct LDL Cholesterol 149.48 mg/dL (100-129)
[2023-07-13 15:04] LABS: 25-OH Vitamin D, Total 62.8 ng/mL (30-100)
== END ==
PROVIDERS: PCP Internal Medicine; Visit Provider Internal Medicine
DX: I10 Essential (primary) hypertension (principal); E55.9 Vitamin D deficiency, unspecified; E78.5 Hyperlipidemia, unspecified; M81.0 Age-related osteoporosis without current pathological fracture; K21.9 Gastro-esophageal reflux disease without esophagitis; N39.0 Urinary tract infection, site not specified; Z68.29 Body mass index [BMI] 29.0-29.9, adult
CPT/HCPCS: 80053; 80061; 82306

== ENCOUNTER 2023-09-23 13:29 | Outpatient (CLI) | payer MEDICARE, SELFPAY ==
[2023-09-23 14:40] LABS: Calcium 9.5 mg/dl (8.4-10.2); Phosphorous 2.7 mg/dl (2.5-4.5)
== END 2023-09-23 23:59 ==
LOC: LAB.DROPOF 13:32
PROVIDERS: PCP Internal Medicine; Visit Provider Internal Medicine
DX: I10 Essential (primary) hypertension (principal); E78.5 Hyperlipidemia, unspecified; E55.9 Vitamin D deficiency, unspecified; K21.9 Gastro-esophageal reflux disease without esophagitis; M81.0 Age-related osteoporosis without current pathological fracture
CPT/HCPCS: 82310; 84100

== ENCOUNTER 2023-11-29 13:51 | Outpatient (POV) | payer MEDICARE, SELFPAY | END 2023-11-29 23:59 | disposition home or self-care (01) | LOC: SC 13:52 | PROVIDERS: PCP Internal Medicine; Visit Provider Dermatology | DX: Z00.00 Encounter for general adult medical examination without abnormal findings (principal) ==

== ENCOUNTER 2024-01-16 13:10 | Outpatient (CLI) | payer MEDICARE, SELFPAY ==
[2024-01-16 14:00] LABS: Basophils # 0.1 K/mm3 (0-0.2); Basophils % 0.8 % (0.1-2.0); Eosinophils # 0.2 K/mm3 (0.0-0.4); Eosinophils % 2.2 % (0.1-12.0); Hematocrit 43.8 % (37.0-47.0); Hemoglobin 13.7 g/dL (12.2-16.2); Lymphocytes # 1.5 K/mm3 (0.7-4.5); Lymphocytes % 20.5 % (10-50); Mean Corpuscular HGB Conc 31.3 g/dL (31.8-35.4); Mean Corpuscular Hemoglobin 31.5 pg (27.0-31.2); Mean Corpuscular Volume 100.6 fl (81-99); Mean Platelet Volume 8.5 fl (7.4-10.4); Monocytes # 0.5 K/mm3 (0.1-1.0); Monocytes % 6.5 % (1.7-9.3); Neutrophils # 5.2 K/mm3 (1.8-7.8); Neutrophils % 70.1 % (37.0-80.0); Platelet Count 291 K/mm3 (142-424); Red Blood Count 4.36 M/mm3 (4.20-5.40); Red Cell Distribution Width 13.6 % (11.5-17.5); White Blood Count 7.5 K/mm3 (4.8-10.8)
[2024-01-16 14:26] LABS: Chloride 108 mmol/L (98-107); Potassium 3.9 mmoL/L (3.5-5.1); Sodium 141 mmol/L (136-145)
[2024-01-16 14:28] LABS: Alanine Aminotransferase 25 U/L (12-78); Aspartate Amino Transferase 27 U/L (14-36); Blood Urea Nitrogen 19 mg/dl (7-17); Estimated Glomerular Filt Rate 81 ml/min (>60); GFR (African American) 98 ML/MIN (>60)
[2024-01-16 14:29] LABS: Albumin Level 4.1 g/dl (3.5-5.0); Albumin/Globulin Ratio 1.7 (1.1-1.8); Alkaline Phosphatase 106 U/L (38-126); Anion Gap 9.9 mEq/L (5-15); Bilirubin,Total 0.7 mg/dl (0.2-1.3); Calcium 10.5 mg/dl (8.4-10.2); Carbon Dioxide 27 mmol/L (22.0-30.0); Chol/HDL Ratio 3.8 (1-3.5); Cholesterol 256 mg/dl (140-200); Globulin 2.4 g/dL (1.3-3.2); Glucose 74 mg/dl (74-100); HDL Cholesterol 67 mg/dl (40-60); Total Protein,Serum 6.5 g/dl (6.3-8.2); Triglycerides 122 mg/dl (30-150); VLDL Cholesterol 24 mg/dL (0-40)
[2024-01-16 14:46] LABS: Direct LDL Cholesterol 129.79 mg/dL (100-129)
[2024-01-20 15:12] LABS: 25-OH Vitamin D, Total 44.5 ng/mL (30-100)
== END 2024-01-16 23:59 | disposition home or self-care (01) ==
LOC: LAB.DROPOF 13:11
PROVIDERS: PCP Internal Medicine; Visit Provider Internal Medicine
DX: E78.5 Hyperlipidemia, unspecified (principal); E83.52 Hypercalcemia; I10 Essential (primary) hypertension; K21.9 Gastro-esophageal reflux disease without esophagitis; M81.0 Age-related osteoporosis without current pathological fracture
CPT/HCPCS: 80053; 80061; 82306; 85025

== ENCOUNTER 2024-02-27 16:35 | Outpatient (CLI) | payer MEDICARE, SELFPAY ==
[2024-02-27 15:55] LABS: Calcium 10.4 mg/dl (8.4-10.2); Phosphorous 2.4 mg/dl (2.5-4.5)
[2024-02-27 16:08] LABS: Intact Parathyroid Hormone 130.6 pg/mL (7.5-53.5)
[2024-02-27 16:13] LABS: 25-OH Vitamin D, Total 43.3 ng/mL (30-100)
== END 2024-02-27 23:59 | disposition home or self-care (01) ==
LOC: LAB.DROPOF 16:35
PROVIDERS: PCP Internal Medicine; Visit Provider Internal Medicine
DX: E83.52 Hypercalcemia (principal)
CPT/HCPCS: 82306; 82310; 83970; 84100

== ENCOUNTER 2024-06-13 10:38 | Outpatient (CLI) | payer MEDICARE, SELFPAY ==
--- NOTE | 2024-06-13 10:38 | MM_ITS ---
PROCEDURE INFORMATION: Exam: MG Bilateral Screening 3D Mammography Exam date and time: 06/13/2024 10:25 AM Age: 78 years old Clinical indication: Screening examination. TECHNIQUE: Imaging protocol: Bilateral Screening tomosynthesis and 2D mammography including computer-aided detection (CAD) when performed. COMPARISON: 1. MG SCREENING KATHIE MAMMOGRAM 06/09/2023 2:44 PM 2. MG SCREENING KATHIE MAMMOGRAM 06/07/2022 10:13 AM FINDINGS: MAMMOGRAPHY: Breast composition: The breasts are heterogeneously dense, which may obscure small masses. Mass: None. Architectural distortion: None. Calcifications: No suspicious calcifications. Asymmetric density: None. Skin thickening: None. Axillary adenopathy: None. IMPRESSION: No mammographic evidence of malignancy. Annual screening is recommended unless otherwise clinically indicated. ASSESSMENT: BI-RADS Category 1: Negative.
== END 2024-06-13 23:59 | disposition home or self-care (01) ==
LOC: RAD 10:38
PROVIDERS: PCP Internal Medicine; Visit Provider Obstetrics & Gynecology
DX: Z12.31 Encounter for screening mammogram for malignant neoplasm of breast (principal)
CPT/HCPCS: 77063; 77067

== ENCOUNTER 2024-07-16 10:19 | Outpatient (CLI) | payer MEDICARE, SELFPAY ==
[2024-07-16 14:53] LABS: Alanine Aminotransferase 21 U/L (12-78); Albumin/Globulin Ratio 1.7 (1.1-1.8); Alkaline Phosphatase 94 U/L (38-126); Anion Gap 12.3 mEq/L (5-15); Aspartate Amino Transferase 28 U/L (14-36); Bilirubin,Total 0.6 mg/dl (0.2-1.3); Blood Urea Nitrogen 18 mg/dl (7-17); Calcium 9.7 mg/dl (8.4-10.2); Carbon Dioxide 26 mmol/L (22.0-30.0); Chloride 106 mmol/L (98-107); Chol/HDL Ratio 3.7 (1-3.5); Cholesterol 234 mg/dl (140-200); Estimated Glomerular Filt Rate 81 ml/min (>60); GFR (African American) 98 ML/MIN (>60); Globulin 2.3 g/dL (1.3-3.2); Glucose 68 mg/dl (74-100); HDL Cholesterol 64 mg/dl (40-60); Potassium 4.3 mmoL/L (3.5-5.1); Sodium 140 mmol/L (136-145); Total Protein,Serum 6.3 g/dl (6.3-8.2); Triglycerides 129 mg/dl (30-150); VLDL Cholesterol 26 mg/dL (0-40)
[2024-07-16 15:04] LABS: Direct LDL Cholesterol 134.34 mg/dL (100-129)
== END 2024-07-16 23:59 | disposition home or self-care (01) ==
LOC: LAB.DROPOF 07-17 15:25
PROVIDERS: PCP Internal Medicine; Visit Provider Internal Medicine
DX: E83.52 Hypercalcemia (principal); E78.5 Hyperlipidemia, unspecified; I10 Essential (primary) hypertension; Z87.891 Personal history of nicotine dependence
CPT/HCPCS: 80053; 80061; 83970

== ENCOUNTER 2025-01-14 10:42 | Outpatient (CLI) | payer MEDICARE, SELFPAY ==
--- NOTE | 2025-01-14 10:45 | XR_ITS ---
FINAL REPORT TECHNIQUE: Chest PA & Lateral CLINICAL HISTORY: Persisting cough, on Macrobid COMPARISON: None FINDINGS: 2 views of the chest were performed. The heart size is normal. The mediastinum is within normal limits. There is no acute cardiopulmonary process. Mild chronic scarring is noted at the lung bases. There are no pleural effusions. There is no pneumothorax. The bony thorax appears intact. IMPRESSION: No acute cardiopulmonary process. Reviewed, Interpreted and Dictated by Ceasar Valdez MD Transcribed by Jigna Jackson Authenticated and [facility]
--- OUTSIDE RECORDS SUMMARY | 2025-01-14 10:45 | XMS_ITS | Data Portability ---
Author Organization [facility] DONALD De Guzman HARDTNER CLOSED Address [address] [place] [address] Care Team Providers Care Application Manager Name Role Phone INES BATISTA Primary Care Provider Assessment Encounter Date Assessment Date Assessment LastModified by Organization Details LastModified Time 12/15/2022 12/15/2022 SURGERY DATE: 12/15/2022 PREOPERATIVE DIAGNOSIS: Stress urinary incontinence. POSTOPERATIVE DIAGNOSIS: Stress urinary incontinence. PROCEDURE: Obtryx II transobturator taping with cystoscopy. ANESTHESIA: General with local 0.25% Marcaine plain. SPECIMENS: None. DRAINS: None. SURGEON: Luca Dominguez MD BRIEF HISTORY: The patient with long history of progressive stress urinary incontinence. She looked to be a candidate for suburethral sling. We discussed procedure in detail including risks, benefits. She understood and wished to proceed. OPERATIVE NOTE: After satisfactory general anesthesia, she was carefully placed in lithotomy position. Genitalia prepped and draped in standard manner. An 18-Arabic urethral catheter was placed. The bladder neck was marked on the anterior vaginal wall. Anterior vaginal wall was infiltrated with 0.25% Marcaine plain with delivery of injection laterally toward the endopelvic fascia as well. A 2 cm incision was made distal to the bladder neck and nice full thickness tunnel produced bilaterally with sharp dissection and blunt dissection with Metzenbaum scissors up to the obturator membrane. The 5th finger was placed through this tunnel up to the membrane. Lateral to the clitoris bilaterally entry sites were established and infiltrated with local anesthesia. A 1 cm stab incision was made and the pigtail passers passed onto the surgeon's finger into the vaginal incision digitally without difficulty. The sling was attached in position in suburethral manner without tension. Urethral catheter was removed and cystoscopy performed. There was no evidence of bladder injury. The sling was placed without tension. Redundant sling material was cut below the skin level. The anterior vaginal incision was closed with running 2-0 Vicryl. Subcutaneous stitches were placed in the stab wounds and then Dermabond placed. All looked pleasing. The patient tolerated the procedure well and was transferred to postop recovery room in stable condition. She will remain on her Macrobid at bedtime and follow up with me in 3 weeks. API-[email or web address] Not available 12/15/2022 15:27:28 Plan of Treatment Reminders Order Date Submit Date Provider Last Modified By Organization Details Last Modified Time Details Appointments RECHECK 2025 10:00A M LUCA DOMINGUEZ MD Not available Not available Not available FOLLOW UP DAK 2025 11:10A M AMAURI DEL CID PA-C Not available Not available Not available Lab urinalysi s panel, auto 2022 023 [email or web address] [facility], [address], [place], [address], 01/10/2023 15:51:10 Referral None recorded. Procedures None recorded. Surgeries None recorded. Imaging None recorded. Medication Orders Macrobid 100 mg capsule 2024 025 [facility], [address], [address], 10/31/2024 13:29:34 Macrobid 100 mg capsule 2023 024 [facility], [address], [address], 10/23/2023 14:21:37 Patient TargetsNo targets recorded. Patient InstructionsNo instructions recorded. Reason for Referral None Reported. Results Created Date Observation Date Name Description Value Unit Range Abnormal Flag Note LastModifiedBy Organization Detail LastModifiedTime 01/11/20 23 01/10/2023 urina lysis panel , auto Unknown Analyte Clean Catch Not Available [facility] [address], [place], [address], 01/10/2023 15:02:58 01/11/20 23 01/10/2023 urina lysis panel , auto Unknown Analyte Yellow Not Available [facility] [address], [place], [address], 01/10/2023 15:02:58 01/11/20 23 01/10/2023 urina lysis panel , auto Unknown Analyte Clear Not Available [facility] [address], [place], [address], 01/10/2023 15:02:58 01/11/20 23 01/10/2023 urina lysis panel , auto Unknown Analyte 1.020 Not Available [facility] [address], [place], [address], 01/10/2023 15:02:58 01/11/20 23 01/10/2023 urina lysis panel , auto Unknown Analyte 5.0 Not Available [facility] [address], [place], [address], 01/10/2023 15:02:58 01/11/20 23 01/10/2023 urina lysis panel , auto Unknown Analyte 25 Yarleis/ul Trace Not Available [facility] [address], [place], [address], 01/10/2023 15:02:58 01/11/20 23 01/10/2023 urina lysis panel , auto Unknown Analyte Negati ve Not Available [facility] [address], [place], [address], 01/10/2023 15:02:58 01/11/20 23 01/10/2023 urina lysis panel , auto Unknown Analyte Negati ve Not Available [facility] [address], [place], [address], 01/10/2023 15:02:58 01/11/20 23 01/10/2023 urina lysis panel , auto Unknown Analyte Normal Not Available [facility] [address], [place], [address], 01/10/2023 15:02:58 01/11/20 23 01/10/2023 urina lysis panel , auto Unknown Analyte Negati ve Not Available [facility] [address], [place], [address], 01/10/2023 15:02:58 01/11/20 23 01/10/2023 urina lysis panel , auto Unknown Analyte Normal Not Available [facility] [address], [place], [address], 01/10/2023 15:02:58 01/11/20 23 01/10/2023 urina lysis panel , auto Unknown Analyte Negati ve Not Available [facility] [address], [place], [address], 01/10/2023 15:02:58 01/11/20 23 01/10/2023 urina lysis panel , auto Unknown Analyte Negati ve Not Available [facility] [address], [place], [address], 01/10/2023 15:02:58 06/09/20 23 06/09/2023 MAMMO , scree adelina, tomos ynthe sis, bilat eral, w/ CAD [address] [place] [address] Viktoriya dumont Name: ASIA dumont : 1944 Age: 77 years Viktoriya dumont 0 Orderi ng Provid er: INES E LESTER JR EXAM DATE: 2022 EXAM: MG SCREEN ING KATHIE MAMMOG MARCO ANTONIO INDICA TION: Routin e screen ing. PROCED URE: Multis lice imagin g of both breast s was perfor med in standa rd projec tions using Hologi c Seleni a Dimens ions tomosy nthesi s equipm ent (3D mammog joselyn) . 2D images were create d from the 3D datase t using C-View softwa re. The study was read with the assist ance of Comput er Aided Detect ion (CAD) softwa re. COMPAR FRANSISCA: This was compar ed with previo us mammog steve dated 2021, 2020, 2019 FINDIN GS: The breast s are hetero geneou sly dense. This may lower the sensit ivity of mammog joselyn. Vascul ar calcif icatio ns. No suspic ious masses , calcif icatio ns, or bacilio ectura l distor tion in either breast . IMPRES ZION: BI-RAD S catego ry 2, Benign . There is no eviden ce of malign hilary. Screen ing mammog steve are recomm ended in one year. Result s were mailed or given to the viktoriya dumont. Interp reted By: Lam Dover Electr onical ly Signed By: Lam Dover on 023 2:52 PM xallsherry [facility] [address] [facility], [place], [address], 06/09/2023 15:18:18 Result Notes None recorded. Problems Name Problem SNOMED Code Status Onset Date Resolution Date Notes Provider Name and Address Organization Details Recorded Time Actinic keratosis 899958392 Active 0[facility] 10:37:56 Inflamed seborrheic keratosis 972413573 Active 025 Chetna Ramirez [facility] 5 10:39:46 Problem Notes Documentation Provider Name and Address Organization Details Recorded Time Urologist Consult Note : [facility] ? ? [address] [facility] [address]MEQYIFC, Mara B (id #[id number], : 1945) [facility] [address] [facility] [address],??[place]?[address] Phone:?? Fax:?? Encounter Summary - Progress Note Date Printed: ?01/10/2023 Documents sent via fax will include the followingmessage: This fax may contain sensitive and confidential personal health information that is being sent for the sole use of the intended recipient. Unintended recipients are directed to securely destroy any materials received. You are hereby notified that the unauthorized disclosure or other unlawful use of this fax or any personal health information is prohibited. To the extent patient information contained in this fax is subject to 42 CFR Part 2, this regulation prohibits unauthorized disclosure of these records. If you received this fax in error, please visit [email or web address] to notify the sender and confirm that the information will be destroyed. If you do not have internet access, please call to notify the sender and confirm that the information will be destroyed. Thank you for your attention and cooperation. [ID:[id number]] Patient Asia Estrella (77yo, F) #[id number] 1945 ?? Patient Demographics: Address [address] [place] [address] [place] [address] ? Encounter Notes: Encounter Reason/DateNone recorded 01/10/2023 - 03:15PM - [facility] History of Present IllnessPatient is here in follow-up of recent TOT suburethral sling. She is very pleased. She has no incontinence and voids well. She is on chronic nitrofurantoin for chronic cystitis. She has had no recent urinary infections. I suggest she continue on it but if she wishes she can take a hiatus and see how she does. She was instructed to continue with limited activity for 6 weeks postop. Review of SystemsNone recorded [id number] 15:02 Ht: 5 ft 3 in Wt: 161 lbs Stated BMI: 28.5 Results/Interpretations URINALYSIS PANEL, AUTO UA Auto/Manual RESULT REFERENCE RANGE SOURCE Clean Catch COLOR Yellow APPEARANCE Clear SPECIFIC GRAVITY 1.020 pH 5.0 LEUKOCYTE ESTERACE 25 Yarelis/ul Trace NITRITE Negative PROTEIN Negative GLUCOSE Normal KETONES Negative UROBILINOGEN Normal BILIRUBIN Negative BLOOD Negative Physical ExamNone recorded Procedure DocumentationNone recorded Assessment and Plan1. Female stress incontinence-As above follow-up 6 gucftdV85.3: Stress incontinence (female) (male) URINALYSIS PANEL, AUTO 2. Chronic infective cystitis-Currently doing wellN30.20: Other chronic cystitis without hematuria URINALYSIS PANEL, AUTO UA Auto/Manual RESULT REFERENCE RANGE SOURCE Clean Catch COLOR Yellow APPEARANCE Clear SPECIFIC GRAVITY 1.020 pH 5.0 LEUKOCYTE ESTERACE 25 Yarelis/ul Trace NITRITE Negative PROTEIN Negative GLUCOSE Normal KETONES Negative UROBILINOGEN Normal BILIRUBIN Negative BLOOD Negative Return to Office LUCA DOMINGUEZ MD for RECHECK at [facility] on 01/26/2023 at 03:00 PM Patient Medical History: Allergies List Allergies not reviewed (last reviewed 12/25/2021) NKDA Medications Reviewed Medications NameDate Source qausdlirj13/26/21?claudia Alvarez estradioL 0.01% (0.1 mg/gram) vaginal creamINSERT 0.5 GRAMS INTO THE VAGINA 2 TIMES A WEEK09/06/22?filled surescripts fluocinonide 0.05 % topical solutionAPPLY TOPICALLY TO SCALP EVERY DAY09/06/22?filled surescripts hydroCHLOROthiazide 12.5 mg tabletTAKE 1 TABLET BY MOUTH ONCE DAILY12/20/22?filled surescripts ibandronate 150 mg xupast91/10/17?filled [facility] levoFLOXacin 500 mg tabletTAKE 1 TABLET BY MOUTH EVERY 24 HOURS FOR 10 DAYS11/03/21?filled surescripts nitrofurantoin monohydrate/macrocrystals 100 mg capsuleTAKE 1 CAPSULE BY MOUTH ONCE DAILY DIRECTED FOR 90 DAYS12/20/22?filled surescripts ofloxacin 0.3 % eye drops02/01/18?filled [facility] phenazopyridine 200 mg kamyjm70/09/16?filled [facility] Premarin 0.625 mg/gram vaginal creamInsert by vaginal route.09/24/22?auth requested LUCA DOMINGUEZ MD raloxifene 60 mg komksx73/21/17?filled [facility] sulfamethoxazole 800 mg-trimethoprim 160 mg tabletTake 1 tablet(s) every 12 hours by oral route as directed for 14 days.07/27/22?filled surescripts terbinafine HCL 250 mg tabletTAKE 1 TABLET BY MOUTH ONCE DAILY FOR 90 DAYS12/31/19?filled surescripts traMADoL 50 mg tabletTAKE 1 TABLET BY MOUTH EVERY 6 HOURS12/15/22?filled surescripts Vaqta (PF) 50 unit/mL intramuscular sbjaeioiff61/12/18?kamille ROMERO Family HistoryFamily History not reviewed (last reviewed 10/29/2022) Past Medical HistoryPast Medical History not reviewed (last reviewed 06/15/2021) Vaccine HistoryNone recorded Electronically Signed by: LUCA DOMINGUEZ MD ANA [facility] - [facility] 01/10/2023 16:11:35 Progress Note : [facility] ? ? [address] [facility] [address]OJVJBVE, Mara B (id #[id number], : 1945) [facility] [address] [facility] [address] [place],??[place]?[address] Phone:?? Fax:?? Encounter Summary - Progress Note Date Printed: ?10/23/2023 Documents sent via fax will include the followingmessage: This fax may contain sensitive and confidential personal health information that is being sent for the sole use of the intended recipient. Unintended recipients are directed to securely destroy any materials received. You are hereby notified that the unauthorized disclosure or other unlawful use of this fax or any personal health information is prohibited. To the extent patient information contained in this fax is subject to 42 CFR Part 2, this regulation prohibits unauthorized disclosure of these records. If you received this fax in error, please visit [email or web address] to notify the sender and confirm that the information will be destroyed. If you do not have internet access, please call to notify the sender and confirm that the information will be destroyed. Thank you for your attention and cooperation. [ID:[id number]] Patient Asia Estrella (78yo, F) #[id number] 1945 ?? Patient Demographics: Address [address] [place] [address] ? Encounter Notes: Encounter Reason/DateNone recorded 10/19/2023 - 02:15PM - [facility] History of Present IllnessPatient is here for scheduled 6-month follow-up last seen in December 2022. She remains on suppressive Macrobid nightly and has had no symptomatic infections. She does note that if she fails to consume adequate water she does have mild dysuria but for the most part he is very pleased. She also had transobturator taping early last year and continues to do well. She is pleased from a urologic standpoint. Review of Systems Patient reportshematuriabut reports no incontinence, no difficulty urinating, no increased frequency, no urinary urgency, no nocturia, normal urinary flowing, and no dysuria. She reports no fever, no night sweats, no significant weight gain, no significant weight loss, and no exercise intolerance. She reports normal appetite, no abdominal pain, no nausea, no vomiting, not vomiting blood, no constipation, no diarrhea, no bright red blood per rectum, no dyspepsia, and no GERD. She reports no muscle aches, no muscle weakness, no arthralgias/joint pain, no back pain, no swelling in the extremities, and no neck pain. [id number] 13:39 Ht: 5 ft 3 in Wt: 161 lbs BMI: 28.5 Results/InterpretationsNone recorded Physical ExamNone recorded Procedure DocumentationNone recorded Assessment and Plan1. Chronic infective cystitis-Lymph nodeCurrently doing well, follow-up 1 year jyrcciH14.20: Other chronic cystitis without hematuria Macrobid 100 mg capsule - To be submitted on or around 10/23/2023 ? Take 1 capsule(s) every day by oral route as directed for 90 days. ? Qty: (90)?capsule ? Refills: 3 ? Pharmacy: [facility] Return to Office LUCA DOMINGUEZ MD for RECHECK at [facility] on 10/22/2024 at 10:45 AM Patient Medical History: Allergies List Reviewed Allergies NKDA Medications Reviewed Medications NameDate Source dnidfsqci51/26/21?claudia Alvarez estradioL 0.01% (0.1 mg/gram) vaginal creamINSERT 0.5 GRAMS INTO THE VAGINA 2 TIMES A WEEK07/14/23?filled surescripts fluocinonide 0.05 % topical solutionAPPLY TOPICALLY TO SCALP EVERY DAY09/06/22?filled surescripts hydroCHLOROthiazide 12.5 mg tabletTAKE 1 TABLET BY MOUTH ONCE DAILY10/05/23?filled surescripts ibandronate 150 mg lyicgg42/10/17?filled [facility] levoFLOXacin 500 mg tabletTAKE 1 TABLET BY MOUTH EVERY 24 HOURS FOR 10 DAYS11/03/21?filled surescripts Macrobid 100 mg capsuleTake 1 capsule(s) every day by oral route as directed for 90 days.10/23/23?prescribed LUCA DOMINGUEZ MD ofloxacin 0.3 % eye drops02/01/18?filled [facility] phenazopyridine 200 mg owimlp48/09/16?filled [facility] Premarin 0.625 mg/gram vaginal creamInsert by vaginal route.09/24/22?auth requested LUCA DOMINGUEZ MD raloxifene 60 mg yinxgc11/21/17?filled [facility] sulfamethoxazole 800 mg-trimethoprim 160 mg tabletTake 1 tablet(s) every 12 hours by oral route as directed for 14 days.07/27/22?filled surescripts terbinafine HCL 250 mg tabletTAKE 1 TABLET BY MOUTH ONCE DAILY FOR 90 DAYS12/31/19?filled surescripts traMADoL 50 mg tabletTAKE 1 TABLET BY MOUTH EVERY 6 HOURS12/15/22?filled surescripts Vaqta (PF) 50 unit/mL intramuscular aiapqwwslo43/12/18?fille d MEDFADI Family HistoryFamily History not reviewed (last reviewed 10/29/2022) Past Medical HistoryPast Medical History not reviewed (last reviewed 06/15/2021) Vaccine HistoryNone recorded Electronically Signed by: LUCA DOMINGUEZ MD ANA Lew [facility] 10/26/2023 15:55:03 Progress Note : [facility] ? ? [address] [facility] [address]ZYPDKLR, Mara B (id #[id number], : 1945) [facility] [address],??[place]?[address] Phone:?? Fax:?? Encounter Summary - Progress Note Date Printed: ?10/31/2024 Documents sent via fax will include the followingmessage: This fax may contain sensitive and confidential personal health information that is being sent for the sole use of the intended recipient. Unintended recipients are directed to securely destroy any materials received. You are hereby notified that the unauthorized disclosure or other unlawful use of this fax or any personal health information is prohibited. To the extent patient information contained in this fax is subject to 42 CFR Part 2, this regulation prohibits unauthorized disclosure of these records. If you received this fax in error, please visit [email or web address] to notify the sender and confirm that the information will be destroyed. If you do not have internet access, please call to notify the sender and confirm that the information will be destroyed. Thank you for your attention and cooperation. [ID:[id number]] Patient Asia Estrella (79yo, F) #[id number] 1945 ?? Patient Demographics: Address [address] [place] [address] ? Encounter Notes: Encounter Reason/Date yearly 10/31/2024 - 01:15PM - [facility] History of Present IllnessPatient is here for scheduled follow-up history of chronic cystitis. She also had suburethral sling about 2 years ago and continues to be satisfied with that. She has no urgency symptoms. Typically she has nocturia x 1. She remains on Macrobid nightly and has had no symptomatic infections over the last year. She was unable to give a urine specimen today. She remains healthy and active. We will continue on current therapy. Review of Systems Patient reports no fever, no night sweats, no significant weight gain, no significant weight loss, and no exercise intolerance. She reports normal appetite, no abdominal pain, no nausea, no vomiting, not vomiting blood, no constipation, no diarrhea, no bright red blood per rectum, no dyspepsia, and no GERD. She reports no incontinence, no difficulty urinating, no hematuria, no increased frequency, no urinary urgency, no nocturia, normal urinary flowing, and no dysuria. She reports no muscle aches, no muscle weakness, no arthralgias/joint pain, no back pain, no swelling in the extremities, and no neck pain. Vitals Ht: 5 ft 3 in10/31/2024 12:49 pm Wt: 163 lbs10/31/2024 12:59 pm BMI: 28.9010/31/2024 12:59 pm Results/InterpretationsNone recorded Physical ExamNone recorded Procedure DocumentationNone recorded Assessment and Plan1. Chronic infective cystitis-doing well, follow-up 1 year kvkoazX38.20: Other chronic cystitis without hematuria Macrobid 100 mg capsule - Take 1 capsule(s) every day by oral route as directed for 90 days. ? Qty: (90)?capsule ? Refills: 3 ? [facility] Return to Office AMAURI DEL CID PA-C for RE ESTABLISH DAK at [facility] on 12/03/2024 at 10:20 AM LUCA DOMINGUEZ MD for RECHECK at [facility] on 11/01/2025 at 10:00 AM Patient Medical History: Allergies List Reviewed Allergies NKDA Medications Reviewed Medications NameDate Source estradioL 0.01% (0.1 mg/gram) vaginal creamINSERT 0.5 GRAMS INTO THE VAGINA 2 TIMES A WEEK07/14/23?filled surescripts hydroCHLOROthiazide 12.5 mg tabletTAKE 1 TABLET BY MOUTH ONCE DAILY07/31/24?filled surescripts Macrobid 100 mg capsuleTake 1 capsule(s) every day by oral route as directed for 90 days.10/31/24?prescribed LUCA DOMINGUEZ MD PreserVision VPOJWJDF83/12/25?entered Isabelle Felipe Uckwhlnaiwed56/12/25?ent ered Isabelle Felipe Family HistoryFamily History not reviewed (last reviewed 10/29/2022) Past Medical HistoryPast Medical History not reviewed (last reviewed 06/15/2021) Vaccine HistoryNone recorded Electronically Signed by: LUCA DOMINGUEZ MD [facility] 10/31/2024 13:32:44 Progress Note : [facility] ? ? [address] [facility] [facility] [id number], Mara B (id #[id number], : 1945) [facility] [address] [place] [address] Date: 12/04/2024RE: Asia Estrella, : 1945, PT ID #[id number] Koch MD, I would like to thank you for referring Asia Estrella to our practice for consultation and evaluation. I have enclosed a copy of the office evaluation for your records. Sincerely, Electronically Signed by: AMAURI DEL CID PA-C, PASUPEncounter Reason/Date Full Skin Check H/O Skin Cancer 12/03/2024 - 10:20AM - [facility] History of Present IllnessPatient requests a full body skin exam. 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 Any detailed findings documented below: No evidence of recurrence of skin cancer sites Evenly pigmented brown macules Stuck-on brown papules and plaques Sifuentes macules Chao red papules erythematous scaly macules: mid upper back x1, R hand x2, L arm x1 , L chest x2, R chest x1, nasal bridge x1, R eyebrow x1 stuck-on waxy brown papules/plaques with irritation on R deltoid x1, L forehead x3, L elbow [id number] DocumentationDAK - Cryo AK:Destruction Premalignant Lesions: Patient verbally agreed to have lesions treated and understands the risk of scarring and dyspigmentation with the procedure. 9 actinic keratoses were treated today with liquid nitrogen. Patient tolerated the procedure well. mid upper back x1, R hand x2, L arm x1 , L chest x2, R chest x1, nasal bridge x1, R eyebrow x1DAK - Destruction BN Lesions:Destruction Benign Lesions: Patient verbally agreed to have lesions treated and understands the risk of scarring and dyspigmentation with the procedure. 5 inflamed seborrheic keratoses were treated today on the R deltoid x1, L forehead x3, L elbow x1. Patient tolerated the procedure well.Assessment/Plan1. History of malignant neoplasm of skin-- 2012- No evidence of recurrence today- Call with any worrisome lesions or if treated lesions return- Return at regular intervals for skin exam as svdycjqzrelK48.828: Personal history of other malignant neoplasm of skin 2. Multiple benign melanocytic nevi- Self-Limited/Minor - Benign moles seen on exam today SPF 30 or higher broad-spectrum sunscreen recommended with re-application every 2 hours Discussed sun protection measures, including wide-brimmed hat, sun-protective clothing, and avoidance of sun during peak hours of 10am-4pm Avoid tanning beds as these can increase the chances of all 3 types of skin cancer Instructed to monitor for changes and to call us for appointment with any changing or worrisome gzybgruM03.5: Melanocytic nevi of trunk 3. Seborrheic keratosis- Self-Limited/Minor - Benign overgrowths of skin FfctfkdorcX71.1: Other seborrheic keratosis 4. Senile angioma- Self-Limited/Minor - Benign blood vessel growths PbdxytneaeK90.1: Nevus, non-neoplastic 5. Solar lentigo- Self-Limited/Minor - Benign brown spots Sun-aaomrtmC72.4: Other melanin hyperpigmentation 6. Actinic keratosis-Actinic keratoses are precancerous lesions that may progress to squamous cell carcinoma if untreated. UV light and genetics may increase risk. Treated lesions should blister, scab over, and heal within a few weeks. If treated lesion(s) does not resolve within 1-2 months, patient agrees to follow up for re-evaluation.L57.0: Actinic keratosis 7. Inflamed seborrheic keratosis-Counseled on benign nature. Pt elected to treat with liquid nitrogen due to painful irritation. May recur or persist after treatment. Discoloration or scarring is possible.L82.0: Inflamed seborrheic keratosis L53.8: Other specified erythematous conditions Return to Office LUCA DOMINGUEZ MD for RECHECK at [facility] on 11/01/2025 at 10:00 AM AMAURI DEL CID PA-C for FOLLOW UP DAK at [facility] on 12/10/2025 at 11:10 AM [facility] 08:15:51 Procedures Surgical History Date Name Laterality Status Provider Name and Address Organization Details Recorded Time 5 [facility] - Cryo AK completed [facility] 12/03/2024 10:41:44 5 [facility] - Destruction BN Lesions completed Chetna Ramirez [facility] 12/03/2024 10:42:52 Orthopedic Surgery completed Hugo Yee [facility] 09/14/2017 15:46:08 Imaging Results Imaging Date Name Status LastModified by Organiz ation Details LastModified Time 06/09/2023 MAMMO, screening, tomosynthe sis, bilateral, w/ CAD completed [email or web address] [facility] [address] [facility], [place], [address], 06/09/2023 15:18:18 Procedure Notes None recorded. Medical Equipment None Reported. Allergies No known drug allergies Medications Name Sig Start Date Stop Date Status Note LastModified by Organization Details LastModified Time tizanidine 2 mg tablet TAKE 1 TABLET BY MOUTH EVERY 8 HOURS NEEDED FOR MUSCLE SPASM FOR 10 DAYS 10/31 completed Not Available Not Available Not Available ofloxacin 0.3 % eye drops 10/31 completed Not Available Not Available Not Available hydrocodone 5 mg-acetamin ophen 325 mg tablet 10/19 completed Not Available Not Available Not Available phenazopyri dine 200 mg tablet 10/31 completed Not Available Not Available Not Available alendronate 70 mg tablet TAKE 1 TABLET BY MOUTH ONCE A WEEK FOR 90 DAYS 07/16 completed Not Available Not Available Not Available levofloxaci n 250 mg tablet 10/19 completed Not Available Not Available Not Available ciprofloxac in 500 mg tablet TAKE 1 TABLET BY MOUTH TWICE DAILY FOR 14 DAYS 07/16 completed Not Available Not Available Not Available sulfamethox azole 800 mg-trimetho prim 160 mg tablet Take 1 tablet every 12 hours by oral route as directed for 14 days. 10/31 completed Not Available Not Available Not Available tramadol 50 mg tablet TAKE 1 TABLET BY MOUTH EVERY 6 HOURS 10/31 completed Not Available Not Available Not Available terbinafine HCl 250 mg tablet TAKE 1 TABLET BY MOUTH ONCE DAILY FOR 90 DAYS 10/31 completed Not Available Not Available Not Available doxycycline monohydrate 100 mg capsule 11/14 completed Not Available Not Available Not Available hydrocodone 7.5 mg-acetamin ophen 325 mg tablet 12/12 completed Not Available Not Available Not Available pantoprazol e 40 mg tablet,con yed release TAKE 1 TABLET BY MOUTH IN THE MORNING NEEDED FOR GERD 10/31 completed Not Available Not Available Not Available raloxifene 60 mg tablet 10/31 completed Not Available Not Available Not Available fluocinonid e 0.05 % topical solution APPLY SOLUTION TOPICALLY ONCE DAILY APPLY TO THE SCALP 10/31 completed Not Available Not Available Not Available levofloxaci n 500 mg tablet TAKE 1 TABLET BY MOUTH EVERY 24 HOURS FOR 10 DAYS 10/31 completed Not Available Not Available Not Available estradiol 0.01% (0.1 mg/gram) vaginal cream INSERT 0.5 GRAMS INTO THE VAGINA 2 TIMES A WEEK active dc Not Available Not Available No t Available amoxicillin 875 mg-potassiu m clavulanate 125 mg tablet TAKE 1 TABLET BY MOUTH EVERY 12 HOURS FOR 14 DAYS 07/16 completed Not Available Not Available Not Available Premarin 0.625 mg/gram vaginal cream INSERT 1/2 (ONE-HALF ) APPLICATO RFUL VAGINALLY ONCE DAILY, APPLY SPARINGLY DIRECTED 10/31 completed Not Available Not Available Not Available nitrofurant oin monohydrate /macrocryst als 100 mg capsule TAKE 1 CAPSULE BY MOUTH ONCE DAILY DIRECTED active Not Available Not Available No t Available ibandronate 150 mg tablet 10/31 completed Not Available Not Available Not Available cranberry 10/31 completed Not Available Not Available Not Available PreserVisio n AREDS BID active Not Available Not Available Not Available hydrochloro thiazide 12.5 mg tablet TAKE 1 TABLET BY MOUTH ONCE DAILY active Not Available Not Available No t Available Vaqta (PF) 50 unit/mL intramuscul ar suspension 10/31 completed Not Available Not Available Not Available Uribel 118 mg-10 mg-40.8 mg-36 mg capsule 07/16 completed Not Available Not Available Not Available Probiotic prn active Not Available Not Chayito ilable Not Available Vitals Date Recorded Body height Body mass index (BMI) Body weight Provider Name and Address Organization Details Last Updated DateTime 01/10/2023 160.02 cm 28.5 kg/m2 90599.37 g Kenia Wu [facility] 01/10/2023 15:02:48 Date Recorded Body height Body mass index (BMI) Body weight Provider Name and Address Organization Details Last Updated DateTime 10/19/2023 160.02 cm 28.5 kg/m2 39674.37 g Ale Hopkins [facility] 10/19/2023 13:39:27 Date Recorded Body height Body mass index (BMI) Body weight Provider Name and Address Organization Details Last Updated DateTime 10/31/2024 160.02 cm 28.9 kg/m2 16947.56 g Isabelle Matteo [facility] 10/31/2024 12:59:59 Social History Question Answer Notes LastModified by Organizat ion Details LastModified Time Tobacco Smoking Status Never [facility]oker [facility] 09/14/2017 15:45:58 Accident Related Injury Yes [email or web address] Information not available 10/19/2017 What Is Your Level Of Alcohol Consumption? None [email or web address] Information not available 06/15/2021 How Much Tobacco Do You Chew? None Information not available 06/13/2020 Are You Currently Employed? No Information not available 10/19/2017 What Is Your Occupation? Retired [email or web address] Information not available 10/19/2017 Which Of Your Hands Is Dominant? Right [email or web address] Information not available 10/19/2017 Which Hand Is Involved? Right [email or web address] Information not available 10/19/2017 When Are Your Symptoms The Worst? Night Day Neither Neither [email or web address] Information not available 10/19/2017 Date Of Injury: DOI 09-10-2017 [email or web address] Information not available 10/19/2017 Have You Been Treated For This Problem Before? No Information not available 10/19/2017 Will This Be Filed As Workers' Compensation? No [email or web address] Information not available 10/19/2017 What Was The Date Of Your Most Recent Tobacco Screening? 02/06/2018 Information not available 11/06/2019 How Much Tobacco Do You Smoke? No [email or web address] Information not available 06/13/2020 Do You Use Any Illicit Or Recreational Drugs? No [email or web address] Information not available 06/15/2021 Has Tobacco Cessation Counseling Been Provided? No [email or web address] Information not available 06/15/2021 Have You Recently Traveled Abroad? No [email or web address] Information not available 06/15/2021 Work Related Injury? No [email or web address] Information not available 10/19/2017 Do You Or Have You Ever Used Any Other Forms Of Tobacco Or Nicotine? No [email or web address] Information not available 06/15/2021 Sex: Unknown Functional Status None recorded. Mental Status None recorded. Family History Relationship Description Onset Age of this Age Resolved Age Notes LastModified by Organization Details LastModified Time Father Basal cell carcinoma of skin [email or web address] Not available 12/03 10:20:45 Medical History Condition Response Other N Anxiety/Depression N Gout N Thyroid Disease N Kidney Stones N Hernia N COPD N Glaucoma N Pneumonia N Anesthesia Complications N Autoimmune disease N Arthritis N Blood Clot N Cancer N Stroke N Blood Thinners N Alcohol Overuse/Alcohol Abuse N High Cholesterol N Skin Cancer Y Liver Disease N Kidney Disease N Allergies/Hayfever N Squamous Cell Carcinoma Y Heart Conditions N Migraines N Skin Problems N Immune System Disorder N Heart Attack (MT) N Mental Illness N Neurological Problems N Diabetes N Rheumatic Fever N Bleeding Disorder N Seizures/Epilepsy N Tuberculosis N Genetic Disorder N AIDS/HIV N Asthma N Basal Cell Carcinoma N Sleep Apnea N Included as Review of Systems Y Hypertension N Osteoporosis N Gynecological HistoryNo gynecological history recorded. Obstetrics History GPAL:G 0 P 0 0 0 0 Past Encounters Encounter ID Performer Location Encounter Start Date Encounter Closed Date Diagnosis/Indication Diagnosis SNOMED-CT Code Diagnosis ICD10 Code Diagnosis Note [id number] LUCA DOMINGUEZ MD SURGERY SCHEDULE [address] [place] [address] 06/29/2017 10:12:13 06/29/2017 10:16:00 [id number] SHARMILA ZAPIEN MD [facility] [address] [place] [address] 09/14/2017 14:31:23 09/20/2017 08:13:23 Closed fracture of upper end of humerus 13809773 S42.201A Ms Estrella has a non displaced right proximal humerus fractureI recommend continued protection with the shoulder immobilize rI recommend she perform active range of motion of the elbow and wristI asked her to return to see me in several weeks for follow up xrays Fracture o f phalanx of finger 66742083 S62.656A Ms Estrella has a concommita nt injury to the hand as well. I recommend continued protection of the small finger iam taping to the ring finger or continuati on of splint per her preference . [id number] SHARMILA ZAPIEN MD [facility] [address] [address] 09/21/2017 12:53:03 09/21/2017 14:20:00 Closed fracture of upper end of humerus 15916966 S42.201A Ms Estrella has a non displaced right proximal humerus fractureI recommend continued protection with the shoulder immobilize rI recommend she perform active range of motion of the elbow and wristI asked her to return to see me in several weeks for follow up xrays and progressio n to formal PT Fracture o f phalanx of finger 01586780 S62.656A Ms Estrella has fractures of the right small finger which are intra-cathryn cular I recommend consultati on with hand surgery [id number] [facility] [address] [address] 09/21/2017 13:49:51 09/21/2017 14:33:44 Fracture of proximal phalanx of finger 068838481 S62.616A I recommende d closed treatment for now. I will see her back in 2 weeksfor x-rays out of cast [id number] SHARMILA ZAPIEN [place] [address] 10/05/2017 13:47:55 10/10/2017 08:32:20 Closed fracture of upper end of humerus 50367838 S42.201A Ms Estrella has a healing proximal humerus fractureI recommend continued protection of the fracture and formal physical therapy to help with her passive motion. [id number] [place] [address] 10/05/2017 11:16:45 10/05/2017 14:06:44 Fracture of proximal phalanx of finger 742062732 S62.616A P1 fracture/P 2 base fracture. Splint that she can remove for shower, range of motion unaffected joints, follow-up 2 more weeks for x-rays out of splint. [id number] [place] [address] 10/19/2017 09:34:28 10/19/2017 10:26:15 Fracture of proximal phalanx of finger 281426906 S62.616A 4 weeks postop, fracture healed, discontinu e splint, discontinu e Coban, recommend range of motion and strengthen ing exercises [id number] SHARMILA [place]APIEN [place] [address] 11/02/2017 13:24:47 11/21/2017 07:29:33 Closed fracture of upper end of humerus 91283764 S42.201A Ms Estrella has a healing proximal humerus fractureI recommend continued protection of the fracture and formal physical therapy to help with her motion. She is to return to see me in 4 weeks to check her progressio n of motion and function. I do not anticipate she will need further xrays at that time. [id number] [place] [address] 11/14/2017 15:38:54 11/14/2017 16:20:13 Fracture of proximal phalanx of finger 885380328 S62.616A Continue range of motion exercises and strengthen ing, she is now about 9 weeks out, it is a little slow recovering however she is making good progress now. Follow-up 6 weeks. [id number] SHARMILA ZAPIEN MD [facility] [address] [place] [address] 12/07/2017 13:16:01 12/07/2017 17:34:33 Closed fracture of upper end of humerus 15242895 S42.201A Ms Estrella has clinically and radiograph ically healed her proximal humerus fractureI recommend continued protection of the fracture and transition from formal physical therapy to HEP. She is to return to see me in 8 weeks to check her progressio n of motion and function. I do not anticipate she will need further xrays at that time. She is continuing with hand therapy and has been going to PT/OT 5 days a week. She should continue with the hand therapy but does not appear to need further physical therapy for the shoulder. [id number] [facility] [address] [place] [address] 12/26/2017 13:29:49 12/26/2017 17:45:50 Fracture of proximal phalanx of finger 978672367 S62.616A Doing great, full use, continue therapy 3-4 weeks, follow-up as needed. [id number] SHARMILA ZAPIEN MD [facility] [address] [place] [address] 02/06/2018 10:13:12 02/07/2018 08:00:48 Closed fracture of upper end of humerus 60965969 S42.201A Ms Estrella has clinically and radiograph ically healed her proximal humerus fractureSh e returned to see me today to confirm adequate restoratio n of motion and function. She is doing well at this point and I asked her to progress with activity as tolerated and return to see me as needed. [id number] LUCA DOMINGUEZ MD SURGERY SCHEDULE [address] [place] [address] 02/28/2019 06:52:52 02/28/2019 06:58:10 [id number] LUCA DOMINGUEZ MD [facility] [address] [address] 11/27/2019 12:59:16 11/27/2019 14:15:57 Urinary tract infectious disease 41202580 N39.0 Chronic in fective cystitis 632140098 N30.20 she will resume Macrodanti n daily at bedtime follow-up 6 months [id number] LUCA DOMINGUEZ MD [facility] [address] [address] 06/13/2020 10:49:11 06/13/2020 11:41:26 Urinary tract infectious disease 32138773 N39.0 as above follow-up 6 months if her urine is acceptable Chronic in fective cystitis 051652006 N30.20 she will resume Macrodanti n daily at bedtime follow-up 6 months [id number] LUCA DOMINGUEZ MD [facility] [address] [address] 07/30/2020 13:10:45 07/30/2020 14:38:27 Chronic cystitis 11191846 N30.20 plan as above. [id number] LUCA DOMINGUEZ MD [facility] [address] [address] 12/12/2020 09:59:12 12/12/2020 10:40:21 Urinary tract infectious disease 20989106 N39.0 as above follow-up 6 months if her urine is acceptable Chronic in fective cystitis 972973551 N30.20 Doing well currently Atrophic vaginitis 55853 000 N95.2 [id number] LUCA DOMINGUEZ MD [facility] [address] [address] 06/15/2021 10:42:12 06/15/2021 11:09:32 Chronic infective cystitis 913231764 N30.20 Doing well currently, follow-up 6 months Atrophic vaginitis 22490 000 N95.2 continue Estrace [id number] LUCA DOMINGUEZ MD [facility] [address] [address] 10/28/2021 09:49:45 10/28/2021 09:50:31 [id number] LUCA DOMINGUEZ MD [facility] [address],[place] [address] 12/25/2021 08:48:48 12/25/2021 09:35:58 Chronic infective cystitis 364044241 N30.20 Doing well currently, follow-up 6 months Atrophic vaginitis 77696 000 N95.2 continue Estrace [id number] LUCA DOMINGUEZ MD [facility] [address] [address] 07/16/2022 10:54:45 07/20/2022 10:15:07 Acute urinary tract infection 818998421 N39.0 Plan as above Female str ess incontinence 17466162 N39.3 As above [id number] LUCA DOMINGUEZ MD [facility] [address],[place] [address] 10/29/2022 09:43:34 10/29/2022 15:32:37 Female stress incontinence 26117894 N39.3 As aboveWe will arrange for suburethra l sling TOT Chronic in fective cystitis 575971487 N30.20 Currently doing well [id number] LUCA DOMINGUEZ MD SURGERY SCHEDULE [address] [place] [address] 12/15/2022 08:28:19 12/15/2022 08:29:36 [id number] LUCA DOMINGUEZ MD [facility] [address] [address] 01/10/2023 14:51:40 01/10/2023 16:59:00 Female stress incontinence 25658165 N39.3 As above follow-up 6 months Chronic in fective cystitis 985400470 N30.20 Currently doing well [id number] MD [facility] [address] [place] [address] 10/19/2023 13:03:50 10/19/2023 15:22:00 Chronic infective cystitis 115526644 N30.20 Lymph nodeCurren tly doing well, follow-up 1 year sooner [id number] LUCA DOMINGUEZ MD [facility] [address] [place] [address] 10/31/2024 12:41:12 10/31/2024 13:29:53 Chronic infective cystitis 655549443 N30.20 doing well, follow-up 1 year sooner [id number] AMAURI DEL CID PA-C [place] [address] [place] [address] 12/03/2024 10:04:59 12/03/2024 10:49:05 History of malignant neoplasm of skin 056907461 Z85.828 - 2013- No evidence of recurrence today- Call with any worrisome lesions or if treated lesions return- Return at regular intervals for skin exam as recommende d Multiple b enign melanocytic nevi 619392652 D22.5 - Benign moles seen on exam today - SPF 30 or higher broad-spec trum sunscreen recommende d with re-applica tion every 2 hours - Discussed sun protection measures, including wide-brimm ed hat, sun-protec tive clothing, and avoidance of sun during peak hours of 10am-4pm - Avoid tanning beds as these can increase the chances of all 3 types of skin cancer - Instructed to monitor for changes and to call us for appointmen t with any changing or worrisome lesions Seborrheic keratosis 394 605213 L82.1 - Benign overgrowth s of skin - Hereditary Senile angioma 6745946 I 78.1 - Benign blood vessel growths - Hereditary Solar lentigo 30707084 L 81.4 - Benign brown spots - Sun-induce d Actinic keratosis 976014 007 L57.0 Actinic keratoses are precancero us lesions that may progress to squamous cell carcinoma if untreated. UV light and genetics may increase risk. Treated lesions should blister, scab over, and heal within a few weeks. If treated lesion(s) does not resolve within 1-2 months, patient agrees to follow up for re-evaluat ion. Inflamed s eborrheic keratosis 344333908 L82.0 L53.8 Counseled on benign nature. Pt elected to treat with liquid nitrogen due to painful irritation . May recur or persist after treatment. Discolorat ion or scarring is possible. Health Concerns Section Related Observation LastModified by Organization Detai ls LastModified Time None Recorded Concern Status LastModified by Organization Details LastModified Time None Recorded Advance Directives Directive None Recorded Payers Encounter Date Sequence Insurance Name Policy Number Policy Hanson Covered Member ID Hanson Member ID Guarantor Name 12/15/2022 1 [facility] (MEDICARE REPLACEMENT/A DVANTAGE - PPO) [id number] [place] B Sameer [id number] [employer] B Sameer 01/10/2023 1 [facility] (MEDICARE REPLACEMENT/A DVANTAGE - PPO) [id number] [place] B Sameer [id number] [employer] B Sameer 10/19/2023 1 [facility] (MEDICARE REPLACEMENT/A DVANTAGE - PPO) [id number] [employer] B Sameer [id number] Asia B Sameer 10/31/2024 1 [facility] (MEDICARE REPLACEMENT/A DVANTAGE - PPO) [id number] [employer] B Sameer [id number] [employer] B Sameer 12/03/2024 1 [facility] (MEDICARE REPLACEMENT/A DVANTAGE - PPO) [id number] [place] B Sameer [id number] Asia B Dillwyn Notes Date Note Type Note Provider Name and Address Organization Details Recorded Time 01/10/2023 text/html Patient is here in follow-up of recent TOT suburethral sling. She is very pleased. She has no incontinence and voids well. She is on chronic nitrofurantoin for chronic cystitis. She has had no recent urinary infections. I suggest she continue on it but if she wishes she can take a hiatus and see how she does. She was instructed to continue with limited activity for 6 weeks postop. LUCA DOMINGUEZ MD [address] [place], [address], [facility] 01/10/2023 15:51:38 10/19/2023 text/html Patient is here for scheduled 6-month follow-up last seen in December 2022. She remains on suppressive Macrobid nightly and has had no symptomatic infections. She does note that if she fails to consume adequate water she does have mild dysuria but for the most part he is very pleased. She also had transobturator taping early last year and continues to do well. She is pleased from a urologic standpoint. MD Pipp[place], [address], [facility] 10/23/2023 14:22:03 10/31/2024 text/html Patient is here for scheduled follow-up history of chronic cystitis. She also had suburethral sling about 2 years ago and continues to be satisfied with that. She has no urgency symptoms. Typically she has nocturia x 1. She remains on Macrobid nightly and has had no symptomatic infections over the last year. She was unable to give a urine specimen today. She remains healthy and active. We will continue on current therapy. LUCA DOMINGUEZ MD [facility] [place], [address], [facility] 10/31/2024 13:30:16 12/03/2024 text/html Patient requests a full body skin exam. 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
[2025-01-14 15:11] LABS: Basophils # 0.1 K/mm3 (0-0.2); Basophils % 1.1 % (0.1-2.0); Eosinophils # 0.1 Kmm3 (0.0-0.4); Hematocrit 40.3 % (37.0-47.0); Lymphocytes # 1.5 K/mm3 (0.7-4.5); Lymphocytes % 26.2 % (10-50); Mean Corpuscular HGB Conc 32.3 g/dL (31.8-35.4); Mean Corpuscular Hemoglobin 30.8 pg (27.0-31.2); Mean Corpuscular Volume 95.5 fl (81-99); Mean Platelet Volume 9.9 fl (7.4-10.4); Monocytes # 0.5 K/mm3 (0.1-1.0); Monocytes % 8.2 % (1.7-9.3); Neutrophils # 3.5 K/mm3 (1.8-7.8); Neutrophils % 62.3 % (37.0-80.0); Nucleated Red Blood Cells # 0 10^3/uL; Nucleated Red Blood Cells % 0 %; Platelet Count 299 K/mm3 (142-424); Red Blood Count 4.22 M/mm3 (4.20-5.40); Red Cell Distribution Width 13.2 % (11.5-17.5); Red Cell Distribution Width-SD 46.4 fL; White Blood Count 5.6 K/mm3 (4.8-10.8)
[2025-01-14 15:56] LABS: Albumin Level 4.1 g/dl (3.5-5.0); Chloride 107 mmol/L (98-107); Potassium 4.4 mmoL/L (3.5-5.1); Sodium 140 mmol/L (136-145)
[2025-01-14 15:58] LABS: Blood Urea Nitrogen 18 mg/dl (7-17); Estimated Glomerular Filt Rate 81 ml/min (>60); GFR (African American) 98 ML/MIN (>60)
[2025-01-14 15:59] LABS: Alanine Aminotransferase 21 U/L (12-78); Albumin/Globulin Ratio 1.6 (1.1-1.8); Alkaline Phosphatase 96 U/L (38-126); Anion Gap 9.4 mEq/L (5-15); Aspartate Amino Transferase 28 U/L (14-36); Bilirubin,Total 0.5 mg/dl (0.2-1.3); Calcium 10.3 mg/dl (8.4-10.2); Carbon Dioxide 28 mmol/L (22.0-30.0); Chol/HDL Ratio 3.3 (1-3.5); Cholesterol 230 mg/dl (140-200); Globulin 2.6 g/dL (1.3-3.2); Glucose 71 mg/dl (74-100); HDL Cholesterol 70 mg/dl (40-60); Total Protein,Serum 6.7 g/dl (6.3-8.2); Triglycerides 166 mg/dl (30-150); VLDL Cholesterol 33 mg/dL (0-40)
[2025-01-14 16:10] LABS: Direct LDL Cholesterol 112.05 mg/dL (100-129)
[2025-01-20 11:10] LABS: 1,25 Dihydroxy Vitamin D 52 pg/mL (.); 1,25-Dihydroxy, Vitamin D-2 <10 pg/mL (.); 1,25-Dihydroxy, Vitamin D-3 49 pg/mL (.)
== END 2025-01-14 23:59 | disposition home or self-care (01) ==
LOC: RAD 10:43
PROVIDERS: PCP Internal Medicine; Visit Provider Internal Medicine
DX: R05.3 Chronic cough (principal); I10 Essential (primary) hypertension; E78.5 Hyperlipidemia, unspecified; E83.52 Hypercalcemia; M81.0 Age-related osteoporosis without current pathological fracture
CPT/HCPCS: 71046; 80053; 80061; 82652; 85025

== ENCOUNTER 2025-01-15 12:08 | Outpatient (CLI) | payer MEDICARE, SELFPAY | END 2025-01-15 23:59 | disposition home or self-care (01) | LOC: LAB.DROPOF 12:09 | PROVIDERS: PCP Internal Medicine; Visit Provider Internal Medicine | DX: R19.7 Diarrhea, unspecified (principal); R19.4 Change in bowel habit | CPT/HCPCS: 87493 ==

== ENCOUNTER 2025-06-17 07:43 | Outpatient (CLI) | payer MEDICARE, SELFPAY ==
--- OUTSIDE RECORDS SUMMARY | 2025-06-17 07:45 | XMS_ITS | Data Portability ---
Author Organization [facility] SHANTAL De GuzmanS [place] CLOSED Address [address] [place] [address] Care Team Providers Care Endoscopy Support Specialist Name Role Phone INES BATISTA Primary Care [...] prepped and draped in standard manner. An 18-Yi urethral catheter was placed. The bladder neck [...] Lab urinalysi s panel, auto 2022 023 [email or web address] [facility], [address] [place] [address], [address], [place], [address], 01/10/2023 15:51:10 Referral None recorded. Procedures None recorded. Surgeries None recorded. Imaging None recorded. Medication Orders Macrobid 100 mg capsule 2024 025 [facility], [address], [address], 10/31/2024 13:29:34 Macrobid 100 mg capsule 2023 024 [facility], [address], [address], 10/23/2023 14:21:37 Patient TargetsNo targets recorded. Patient InstructionsNo instructions recorded. Reason for Referral None Reported. Results Created Date Observation Date Name Description Value Unit Range Abnormal Flag Note LastModifiedBy Organization Detail LastModifiedTime 01/11/20 23 01/10/2023 urina lysis panel , auto Unknown Analyte Clean Catch Not [facility] [address], [place], [address], 01/10/2023 15:02:58 01/11/20 23 01/10/2023 urina lysis panel , auto Unknown Analyte Yellow Not Available [facility] [address], [place], [address], 01/10/2023 15:02:58 01/11/20 23 01/10/2023 urina lysis panel , auto Unknown Analyte Clear Not Available [facility] [address], [place], [address], 01/10/2023 15:02:58 01/11/20 23 01/10/2023 urina lysis panel , auto Unknown Analyte 1.020 Not Available [facility] [address], [place], [address], 01/10/2023 15:02:58 01/11/20 23 01/10/2023 urina lysis panel , auto Unknown Analyte 5.0 Not Available [facility] [address], [place], [address], 01/10/2023 15:02:58 01/11/20 23 01/10/2023 urina lysis panel , auto Unknown Analyte 25 Yarelis/ul Trace Not Available [facility] [address], [place], [address], 01/10/2023 15:02:58 01/11/20 23 01/10/2023 urina lysis panel , auto Unknown Analyte Negati ve Not Available [facility] [address], [place], [address], 01/10/2023 15:02:58 01/11/20 23 01/10/2023 urina lysis panel , auto Unknown Analyte Negati ve Not Available [facility] [address], [place], [address], 01/10/2023 15:02:58 01/11/20 23 01/10/2023 urina lysis panel , auto Unknown Analyte Normal Not Available [facility] [address], [place], [address], 01/10/2023 15:02:58 01/11/20 23 01/10/2023 urina lysis panel , auto Unknown Analyte Negati ve Not Available [facility] [address], [place], [address], 01/10/2023 15:02:58 01/11/20 23 01/10/2023 urina lysis panel , auto Unknown Analyte Normal Not Available [facility] [address], [place], [address], 01/10/2023 15:02:58 01/11/20 23 01/10/2023 urina lysis panel , auto Unknown Analyte Negati ve Not Available [facility] [address], [place], [address], 01/10/2023 15:02:58 01/11/20 23 01/10/2023 urina lysis panel , auto Unknown Analyte Negati ve Not Available [facility] [address] [facility] [address], [place], [address], 01/10/2023 15:02:58 06/09/20 23 06/09/2023 MAMMO , scree adelina, tomos ynthe sis, bilat eral, w/ CAD Lexing ton [facility] [address] [place] [place] [address] Viktoriya dumont Name: ASIA dumont : 1944 [...] from the 3D datase t using C-View [employer] re. The study was read with the [...] By: Lam Dover on 023 2:52 PM [email or web address] [facility] [address] [place], [address], 06/09/2023 15:18:18 Result Notes Documentation Provider Name and Address Organization Details Recorded Time Mammo, Screening, Tomosynthesis, Bilateral, W/ Cad : [facility] [address] [place] [address] Patient Name: ASIA ESTRELLA Patient : 1945 Age: 77 years Patient Ordering Provider: INES ABTISTA JR EXAM DATE: 06/09/2023 EXAM: MG SCREENING KATHIE MAMMOGRAM INDICATION: Routine screening. PROCEDURE: Multislice imaging of both breasts was performed in standard projections using [employer] tomosynthesis equipment (3D mammography). 2D images were created from the 3D dataset using C-View software. The study was read with the assistance of Computer Aided Detection (CAD) software. COMPARISON: This was compared with previous mammograms dated 06/07/2022, 06/03/2021, 06/02/2020 FINDINGS: The breasts are heterogeneously dense. This may lower the sensitivity of mammography. Vascular calcifications. No suspicious masses, calcifications, or architectural distortion in either breast. IMPRESSION: BI-RADS category 2, Benign. There is no evidence of malignancy. Screening mammograms are recommended in one year. Results were mailed or given to the patient. Interpreted By: Lam Dover Edu Buchanan [facility] 06/09/2023 15:18:18 Problems Name Problem SNOMED Code Status Onset Date Resolution Date Notes Provider Name and Address Organization Details Recorded Time Actinic keratosis 361510708 Active 025 Chetna Ramirez [facility] 5 10:37:56 Inflamed seborrheic keratosis 750331114 Active 025 Chetna Ramirez [facility] 5 10:39:46 Problem Notes Documentation Provider Name and Address Organization Details Recorded Time Urologist Consult Note : [facility] [address] [facility] [address]PZUGPEU, Mara B (id #[id number], : 1945) [facility] [address] [place] [address] Encounter Summary - Progress Note Date Printed: 01/10/2023 Documents sent via fax will include the [...] received this fax in error, please visit [email or web address] to notify the sender and confirm that the information will be destroyed. If you do not have internet access, please call to notify the sender and confirm that the information will be destroyed. Thank you for your attention and cooperation. [ID:[id number]] Patient Asia Estrella (77yo, F) #[id number] 1945 Patient Demographics: Address [address] [place] [address] [place] [address] Encounter Notes: Encounter Reason/DateNone recorded 01/10/2023 - 03:15PM - [facility] History of Present IllnessPatient [...] 6 weeks postop. Review of SystemsNone recorded [id number] 15:02 Ht: 5 ft 3 in Wt: [...] Plan1. Female stress incontinence-As above follow-up 6 ddxgoyH87.3: Stress incontinence (female) (male) URINALYSIS PANEL, AUTO [...] Office LUCA DOMINGUEZ MD for RECHECK at [facility] on 01/26/2023 at 03:00 PM Patient Medical History: Allergies List Allergies not reviewed (last reviewed 12/25/2021) NKDA Medications Reviewed Medications NameDate Source vaecbwjqu43/26/21 entered Felicity Majors estradioL 0.01% (0.1 mg/gram) vaginal creamINSERT 0.5 GRAMS INTO THE VAGINA 2 TIMES A WEEK09/06/22 filled surescripts fluocinonide 0.05 % topical solutionAPPLY TOPICALLY TO SCALP EVERY DAY09/06/22 filled surescripts hydroCHLOROthiazide 12.5 mg tabletTAKE 1 TABLET BY MOUTH ONCE DAILY12/20/22 filled surescripts ibandronate 150 mg ttdiym70/10/17 filled [facility] levoFLOXacin 500 mg tabletTAKE 1 TABLET BY MOUTH EVERY 24 HOURS FOR 10 DAYS11/03/21 filled surescripts nitrofurantoin monohydrate/macrocrystals 100 mg capsuleTAKE 1 CAPSULE BY MOUTH ONCE DAILY DIRECTED FOR 90 DAYS12/20/22 filled surescripts ofloxacin 0.3 % eye drops02/01/18 filled [facility] phenazopyridine 200 mg dvioyw68/09/16 filled [facility] Premarin 0.625 mg/gram vaginal creamInsert by vaginal route.09/24/22 auth requested LUCA DOMINGUEZ MD raloxifene 60 mg urpevi47/21/17 filled [facility] sulfamethoxazole 800 mg-trimethoprim 160 mg tabletTake 1 tablet(s) every 12 hours by oral route as directed for 14 days.07/27/22 filled surescripts terbinafine HCL 250 mg tabletTAKE 1 TABLET BY MOUTH ONCE DAILY FOR 90 DAYS12/31/19 filled surescripts traMADoL 50 mg tabletTAKE 1 TABLET BY MOUTH EVERY 6 HOURS12/15/22 filled surescripts Vaqta (PF) 50 unit/mL intramuscular silwlpigse76/12/18 filled [facility] Family HistoryFamily History not reviewed (last reviewed 10/29/2022) Past Medical HistoryPast Medical History not reviewed (last reviewed 06/15/2021) Vaccine HistoryNone recorded Electronically Signed by: LUCA DOMINGUEZ MD Deisy Geller [facility] 01/10/2023 16:11:35 Progress Note : [facility] [address] [place] [address], [facility] [address]BZYGLTM, Asia Nicole (id #[id number], : 1945) [address] [place] [address] Encounter Summary - Progress Note Date Printed: 10/23/2023 Documents sent via fax will include the [...] received this fax in error, please visit [email or web address] to notify the sender and confirm that the information will be destroyed. If you do not have internet access, please call to notify the sender and confirm that the information will be destroyed. Thank you for your attention and cooperation. [ID:[id number]] Patient Asia Estrella (78yo, F) #[id number] 1945 Patient Demographics: Address [address] [facility] [place] [address] Encounter Notes: Encounter Reason/DateNone recorded 10/19/2023 - 02:15PM - [facility] History of Present [...] in the extremities, and no neck pain. [id number] 13:39 Ht: 5 ft 3 in Wt: 161 lbs BMI: 28.5 Results/InterpretationsNone recorded Physical ExamNone recorded Procedure DocumentationNone recorded Assessment and Plan1. Chronic infective cystitis-Lymph nodeCurrently doing well, follow-up 1 year zcpincM35.20: Other chronic cystitis without hematuria Macrobid 100 mg capsule - To be submitted on or around 10/23/2023 Take 1 capsule(s) every day by oral route as directed for 90 days. Qty: (90) capsule Refills: 3 Pharmacy: [facility] Return to Office LUCA DOMINGUEZ MD for RECHECK at [facility] on 10/22/2024 at 10:45 AM Patient Medical History: Allergies List Reviewed Allergies NKDA Medications Reviewed Medications NameDate Source uftdzxfah54/26/21 entered Felicity Alvarez estradioL 0.01% (0.1 mg/gram) vaginal creamINSERT 0.5 GRAMS INTO THE VAGINA 2 TIMES A WEEK07/14/23 filled surescripts fluocinonide 0.05 % topical solutionAPPLY TOPICALLY TO SCALP EVERY DAY09/06/22 filled surescripts hydroCHLOROthiazide 12.5 mg tabletTAKE 1 TABLET BY MOUTH ONCE DAILY10/05/23 filled surescripts ibandronate 150 mg jtsief48/10/17 filled [facility] levoFLOXacin 500 mg tabletTAKE 1 TABLET BY MOUTH EVERY 24 HOURS FOR 10 DAYS11/03/21 filled surescripts Macrobid 100 mg capsuleTake 1 capsule(s) every day by oral route as directed for 90 days.10/23/23 prescribed LUCA DOMINGUEZ MD ofloxacin 0.3 % eye drops02/01/18 filled [facility] phenazopyridine 200 mg ocazin30/09/16 filled [facility] Premarin 0.625 mg/gram vaginal creamInsert by vaginal route.09/24/22 auth requested LUCA DOMINGUEZ MD raloxifene 60 mg nxbzji21/21/17 filled [facility] sulfamethoxazole 800 mg-trimethoprim 160 mg tabletTake 1 tablet(s) every 12 hours by oral route as directed for 14 days.07/27/22 filled surescripts terbinafine HCL 250 mg tabletTAKE 1 TABLET BY MOUTH ONCE DAILY FOR 90 DAYS12/31/19 filled surescripts traMADoL 50 mg tabletTAKE 1 TABLET BY MOUTH EVERY 6 HOURS12/15/22 filled surescripts Vaqta (PF) 50 unit/mL intramuscular jkvdyupled32/12/18 filled [facility] Family HistoryFamily History not reviewed (last reviewed 10/29/2022) Past Medical HistoryPast Medical History not reviewed (last reviewed 06/15/2021) Vaccine HistoryNone recorded Electronically Signed by: LUCA DOMINGUEZ MD ANA Lew [facility] 10/26/2023 15:55:03 Progress Note : [facility] [address] [facility] [address]LKNJSPO, Mara B (id #[id number], : 1945) [facility] [address] [place] [address] Encounter Summary - Progress Note Date Printed: 10/31/2024 Documents sent via fax will include the [...] received this fax in error, please visit [email or web address] to notify the sender and confirm that the information will be destroyed. If you do not have internet access, please call to notify the sender and confirm that the information will be destroyed. Thank you for your attention and cooperation. [ID:[id number]] Patient Asia Estrella (79yo, F) #[id number] 1945 Patient Demographics: Address [address] [place] [address] Encounter Notes: Encounter Reason/Date yearly 10/31/2024 - 01:15PM - [facility] History of Present IllnessPatient [...] Chronic infective cystitis-doing well, follow-up 1 year cqvbffR34.20: Other chronic cystitis without hematuria Macrobid 100 mg capsule - Take 1 capsule(s) every day by oral route as directed for 90 days. Qty: (90) capsule Refills: 3 Pharmacy: [facility] Return to Office AMAURI DEL CID PA-C for RE ESTABLISH DAK at [facility] on 12/03/2024 at 10:20 AM LUCA DOMINGUEZ MD for RECHECK at [facility] on 11/01/2025 at 10:00 AM Patient Medical History: Allergies List Reviewed Allergies NKDA Medications Reviewed Medications NameDate Source estradioL 0.01% (0.1 mg/gram) vaginal creamINSERT 0.5 GRAMS INTO THE VAGINA 2 TIMES A WEEK07/14/23 filled surescripts hydroCHLOROthiazide 12.5 mg tabletTAKE 1 TABLET BY MOUTH ONCE DAILY07/31/24 filled surescripts Macrobid 100 mg capsuleTake 1 capsule(s) every day by oral route as directed for 90 days.10/31/24 prescribed LUCA DOMINGUEZ MD Preser[employer]ision EXHZPXXN94/12/25 entered Isabelle Felipe Lufxsnwckqnj01/12/25 entered Isabelle Felipe Family HistoryFamily History not reviewed (last reviewed 10/29/2022) Past Medical HistoryPast Medical History not reviewed (last reviewed 06/15/2021) Vaccine HistoryNone recorded Electronically Signed by: LUCA DOMINGUEZ MD ANA [facility] 10/31/2024 13:32:44 Progress Note : [facility] [address] [facility] [id number], Mara B (id #[id number], : 1945) [facility] [address] [place] [address] Date: 12/04/2024RE: Asia Estrella, : 1945, PT ID #[id number] Koch MD, I would like to thank you for referring Asia Estrella to our practice for consultation and evaluation. I have enclosed a copy of the office evaluation for your records. Sincerely, Electronically Signed by: AMAURI DEL CID PA-C, Ivana Reason/Date Full Skin Check H/O Skin Cancer 12/03/2024 - 10:20AM - [facility] History of Present IllnessPatient requests a full [...] deltoid x1, L forehead x3, L elbow [id number] DocumentationDAK - Cryo AK:Destruction Premalignant Lesions: Patient [...] at regular intervals for skin exam as hibgxqtblvhN37.828: Personal history of other malignant neoplasm of [...] for appointment with any changing or worrisome nsuhaasZ59.5: Melanocytic nevi of trunk 3. Seborrheic keratosis- Self-Limited/Minor - Benign overgrowths of skin QkfmoypatsV46.1: Other seborrheic keratosis 4. Senile angioma- Self-Limited/Minor - Benign blood vessel growths EhqpssgzqmQ26.1: Nevus, non-neoplastic 5. Solar lentigo- Self-Limited/Minor - Benign brown spots Sun-wfmuimhY20.4: Other melanin hyperpigmentation 6. Actinic keratosis-Actinic keratoses [...] Office LUCA DOMINGUEZ MD for RECHECK at [facility] on 11/01/2025 at 10:00 AM AMAURI DEL CID PA-C for FOLLOW UP DAK at [facility] on 12/10/2025 at 11:10 AM [facility] 08:15:51 Procedures Surgical History Date Name Laterality Status Provider Name and Address Organization Details Recorded Time 5 [facility] - Cryo AK completed [facility] 12/03/2024 10:41:44 5 [facility] - Destruction BN Lesions completed [facility] 12/03/2024 10:42:52 Orthopedic Surgery completed Hugo Yee [facility] 09/14/2017 15:46:08 Imaging Results None recorded. Procedure Notes None recorded. Medical Equipment None [...] Updated DateTime 10/19/2023 160.02 cm 28.5 kg/m2 56798.37 g Ale Hopkins [facility] 10/19/2023 13:39:27 Date Recorded Body height Body mass index (BMI) Body weight Provider Name and Address Organization Details Last Updated DateTime 10/31/2024 160.02 cm 28.9 kg/m2 81798.56 g Isabelle Matteo [facility] 10/31/2024 12:59:59 Date Recorded Body height Body mass index (BMI) Body weight Provider Name and Address Organization Details Last Updated DateTime 01/10/2023 160.02 cm 28.5 kg/m2 83228.37 g Kenia Wu [facility] 01/10/2023 15:02:48 Social History Question Answer Notes LastModified by Organizat ion Details LastModified Time Tobacco Smoking Status Never [facility]oker [facility]/14/2017 15:45:58 Accident Related Injury Yes [email or web address] Information not available 10/19/2017 How Much Tobacco Do You Chew? None [email or web address] Information not available 06/13/2020 Which Of Your Hands Is Dominant? Right iuvanm82 Information not available 10/19/2017 Which Hand Is Involved? Right [email or web address] Information not available 10/19/2017 When Are Your Symptoms The Worst? Night Day Neither Neither Information not available 10/19/2017 Date Of Injury: DOI 09-10-2017 [email or web address] Information not available 10/19/2017 Have You Been Treated For This Problem Before? No [email or web address] Information not available 10/19/2017 Will This Be Filed As Workers' Compensation? No [email or web address] Information not available 10/19/2017 What Was The Date Of Your Most Recent Tobacco Screening? 02/06/2018 Information not available 11/06/2019 How Much Tobacco Do You Smoke? No [email or web address] Information not available 06/13/2020 Has Tobacco Cessation Counseling Been Provided? No [email or web address] Information not available 06/15/2021 Have You Recently Traveled Abroad? No [email or web address] Information not available 06/15/2021 Work Related Injury? No [email or web address] Information not available 10/19/2017 Sex: Unknown Functional Status Question Answer Note LastModified by Organizat ion Details LastModified Time Do you use any illicit or recreational drugs? No [email or web address] Information not available 06/15/2021 Do you or have you ever used any other forms of tobacco or nicotine? No [email or web address] Information not available 06/15/2021 What is your level of alcohol consumption? None [email or web address] Information not available 06/15/2021 Are you currently employed? No [email or web address] Information not available 10/19/2017 What is your occupation? Retired [email or web address] Information not available 10/19/2017 Mental Status None recorded. Family History Relationship Description Onset Age of this Age Resolved Age Notes LastModified by Organization Details LastModified Time Father Basal cell carcinoma of skin [email or web address] Not available 12/03 10:20:45 Medical History Condition Response Allergies/Hayfever N Gout N Anxiety/Depression N Other N Thyroid Disease N Squamous Cell Carcinoma Y Kidney Stones N Heart Conditions N Hernia N Migraines N Glaucoma N COPD N Pneumonia N Skin Problems N Immune System Disorder N Anesthesia Complications N Heart Attack ([place]) N Mental Illness N Neurological Problems N Diabetes N Autoimmune disease N Rheumatic Fever N Bleeding Disorder N Arthritis N Seizures/Epilepsy N Blood Clot N Tuberculosis N Genetic Disorder N AIDS/HIV N Cancer N Stroke N Asthma N Blood Thinners N Basal Cell Carcinoma N Alcohol Overuse/Alcohol Abuse N Sleep Apnea N High Cholesterol N Skin Cancer Y Liver Disease N Included as Review of Systems Y Hypertension N Osteoporosis N Kidney Disease N Gynecological HistoryNo gynecological history recorded. Obstetrics History GPAL:G 0 P 0 0 0 0 Past Encounters Encounter ID Performer Location Encounter Start Date Encounter Closed Date Diagnosis/Indication Diagnosis SNOMED-CT Code Diagnosis ICD10 Code Diagnosis IMO Codes Diagnosis Note [id number] LUCA DOMINGUEZ MD SURGERY SCHEDULE [address] [place] [address] 06/29/2017 10:12:13 06/29/2017 10:16:00 [id number] SHARMILA ZAPIEN MD [facility] [address] [place] [address] 09/14/2017 14:31:23 09/20/2017 08:13:23 Closed fracture of upper end of humerus 11838717 S42.201A Ms Estrella has a non displaced right proximal humerus fractureI recommend continued protection with the shoulder immobilize rI recommend she perform active range of motion of the elbow and wristI asked her to return to see me in several weeks for follow up xrays Fracture o f phalanx of finger 31067703 S62.656A Ms Estrella has a concommita nt injury to the hand as well. I recommend continued protection of the small finger iam taping to the ring finger or continuati on of splint per her preference . [id number] SHARMILA ZAPIEN MD [facility] [address] [place] [address] 09/21/2017 12:53:03 09/21/2017 14:20:00 Closed fracture of upper end of humerus 68512656 S42.201A Ms Estrella has a non displaced right proximal humerus fractureI recommend continued protection with the shoulder immobilize rI recommend she perform active range of motion of the elbow and wristI asked her to return to see me in several weeks for follow up xrays and progressio n to formal PT Fracture o f phalanx of finger 27756971 S62.656A Ms Estrella has fractures of the right small finger which are intra-cathryn cular I recommend consultati on with hand surgery [id number] DAYANARA KOCH MD [facility] [address] [place] [address] 09/21/2017 13:49:51 09/21/2017 14:33:44 Fracture of proximal phalanx of finger 142628311 S62.616A I recommende d closed treatment for now. I will see her back in 2 weeksfor x-rays out of cast [id number] SHARMILA ZAPIEN MD [facility] [address] [place] [address] 10/05/2017 13:47:55 10/10/2017 08:32:20 Closed fracture of upper end of humerus 67086790 S42.201A Ms Estrella has a healing proximal humerus fractureI recommend continued protection of the fracture and formal physical therapy to help with her passive motion. [id number] DAYANARA KOCH MD [facility] [address] [place] [address] 10/05/2017 11:16:45 10/05/2017 14:06:44 Fracture of proximal phalanx of finger 689373118 S62.616A P1 fracture/P 2 base fracture. Splint that she can remove for shower, range of motion unaffected joints, follow-up 2 more weeks for x-rays out of splint. [id number] DAYANARA KOCH MD [facility] [address] [place] [address] 10/19/2017 09:34:28 10/19/2017 10:26:15 Fracture of proximal phalanx of finger [id number] S62.616A 4 weeks postop, fracture healed, discontinu e splint, discontinu e Coban, recommend range of motion and strengthen ing exercises [id number] SHARMILA ZAPIEN MD [facility] [address] [place] [address] 11/02/2017 13:24:47 11/21/2017 07:29:33 Closed fracture of upper end of humerus [id number] S42.201A Ms Estrella has a healing proximal humerus fractureI recommend continued protection of the fracture and formal physical therapy to help with her motion. She is to return to see me in 4 weeks to check her progressio n of motion and function. I do not anticipate she will need further xrays at that time. [id number] DAYANARA KOCH MD [facility] [address] [place] [address] 11/14/2017 15:38:54 11/14/2017 16:20:13 Fracture of proximal phalanx of finger [id number] S62.616A Continue range of motion exercises and strengthen ing, she is now about 9 weeks out, it is a little slow recovering however she is making good progress now. Follow-up 6 weeks. [id number] SHARMILA ZAPIEN MD [facility] [address] [place] [address] 12/07/2017 13:16:01 12/07/2017 17:34:33 Closed fracture of upper end of humerus 12256438 S42.201A Ms Estrella has clinically and radiograph [...] need further physical therapy for the shoulder. [id number] DAYANARA KOCH MD [facility] [address] [place] [address] 12/26/2017 13:29:49 12/26/2017 17:45:50 Fracture of proximal phalanx of finger [id number] S62.616A Doing great, full use, continue therapy 3-4 weeks, follow-up as needed. [id number] SHARMILA ZAPIEN MD [facility] [address] [address] 02/06/2018 10:13:12 02/07/2018 08:00:48 Closed fracture of upper end of humerus 60406620 S42.201A Ms Estrella has clinically and radiograph ically healed her proximal humerus fractureSh e returned to see me today to confirm adequate restoratio n of motion and function. She is doing well at this point and I asked her to progress with activity as tolerated and return to see me as needed. [id number] LUCA DOMINGUEZ MD SURGERY SCHEDULE [address] [place] [address] 02/28/2019 06:52:52 02/28/2019 06:58:10 [id number] LUCA DOMINGUEZ MD [facility] [address] [address] 11/27/2019 12:59:16 11/27/2019 14:15:57 Urinary tract infectious disease 95462710 N39.0 Chronic in fective cystitis 599920722 N30.20 she will resume Macrodanti n daily at bedtime follow-up 6 months [id number] LUCA DOMINGUEZ MD [facility] [address],[place] [address] 06/13/2020 10:49:11 06/13/2020 11:41:26 Urinary tract infectious disease 06715506 N39.0 as above follow-up 6 months if her urine is acceptable Chronic in fective cystitis 071993822 N30.20 she will resume Macrodanti n daily at bedtime follow-up 6 months [id number] LUCA DOMINGUEZ MD [facility] [address],[place] [address] 07/30/2020 13:10:45 07/30/2020 14:38:27 Chronic cystitis 10005347 N30.20 plan as above. [id number] LUCA DOMINGUEZ MD [facility] [address],[place] [address] 0 12/12/2020 09:59:12 12/12/2020 10:40:21 Urinary tract infectious disease 93821630 N39.0 as above follow-up 6 months if her urine is acceptable Chronic in fective cystitis 640593134 N30.20 Doing well currently Atrophic vaginitis 54701 000 N95.2 [id number] MD [facility] [address] [address] 06/15/2021 10:42:12 06/15/2021 11:09:32 Chronic infective cystitis 396551438 N30.20 Doing well currently, follow-up 6 months Atrophic vaginitis 07856 000 N95.2 continue Estrace [id number] LUCA DOMINGUEZ MD [facility] [address] [address] 10/28/2021 09:49:45 10/28/2021 09:50:31 [id number] LUCA DOMINGUEZ MD [facility] [address] [address] 12/25/2021 08:48:48 12/25/2021 09:35:58 Chronic infective cystitis 275531677 N30.20 Doing well currently, follow-up 6 months Atrophic vaginitis 42764 000 N95.2 continue Estrace [id number] LUCA DOMINGUEZ MD [facility] [address],[place] [place] [address] 07/16/2022 10:54:45 07/20/2022 10:15:07 Acute urinary tract infection 932777022 N39.0 Plan as above Female str ess incontinence 30645213 N39.3 As above [id number] LUCA DOMINGUEZ MD [facility] [address] [address] 10/29/2022 09:43:34 10/29/2022 15:32:37 Female stress incontinence 98186609 N39.3 As aboveWe will arrange for suburethra l sling TOT Chronic in fective cystitis 226285858 N30.20 Currently doing well [id number] LUCA DOMINGUEZ MD SURGERY SCHEDULE [address] [place] [address] 12/15/2022 08:28:19 12/15/2022 08:29:36 [id number] LUCA DOMINGUEZ MD [facility] [address] [address] 01/10/2023 14:51:40 01/10/2023 16:59:00 Female stress incontinence 54636506 N39.3 As above follow-up 6 months Chronic in fective cystitis 029754522 N30.20 Currently doing well [id number] LUCA DOMINGUEZ MD [facility] [address] [address] 10/19/2023 13:03:50 10/19/2023 15:22:00 Chronic infective cystitis 545709358 N30.20 Lymph nodeCurren tly doing well, follow-up 1 year sooner [id number] LUCA DOMINGUEZ MD [facility] [address] [place] [address] 10/31/2024 12:41:12 10/31/2024 13:29:53 Chronic infective cystitis 261601538 N30.20 doing well, follow-up 1 year sooner [id number] AMAURI DEL CID PA-C [facility] [address] [place] [address] 12/03/2024 10:04:59 12/03/2024 10:49:05 History of malignant neoplasm of skin 630900148 Z85.828 - 2013- No evidence of recurrence today- Call with any worrisome lesions or if treated lesions return- Return at regular intervals for skin exam as recommende d Multiple b enign melanocytic nevi [id number] D22.5 - Benign moles seen on exam [...] changing or worrisome lesions Seborrheic keratosis 394 947397 L82.1 - Benign overgrowth s of skin - Hereditary Senile angioma 2989586 I 78.1 - Benign blood vessel growths - Hereditary Solar lentigo 01182388 L 81.4 - Benign brown spots - Sun-induce d Actinic keratosis 043612 007 L57.0 Actinic keratoses are precancero us lesions that may progress to squamous cell carcinoma if untreated. UV light and genetics may increase risk. Treated lesions should blister, scab over, and heal within a few weeks. If treated lesion(s) does not resolve within 1-2 months, patient agrees to follow up for re-evaluat ion. Inflamed s eborrheic keratosis 289027504 L82.0 L53.8 Counseled on benign nature. Pt elected to treat with liquid nitrogen due to painful irritation . May recur or persist after treatment. Discolorat ion or scarring is possible. Health Concerns Section Related Observation LastModified by Organization Detai ls LastModified Time None Recorded Concern Status LastModified by Organization Details LastModified Time None Recorded Advance Directives Directive None Recorded Payers Insurance Date Sequence Insurance Name Policy Number Policy Hanson Covered Member ID Hanson Member ID Guarantor Name 12/10/2024 1 [facility] (MEDICARE REPLACEMENT/A DVANTAGE - PPO) [id number] Asiajorge luis Esrtella [id number] Asia Estrella Notes Date Note Type Note Provider Name [...] for 6 weeks postop. LUCA DOMINGUEZ MD [facility] [place], [address], [facility] 01/10/2023 15:51:38 10/19/2023 text/html Patient is here [...] She is pleased from a urologic standpoint. LUCA DOMINGUE[facility] [place], [address], [facility] 10/23/2023 14:22:03 10/31/2024 text/html Patient is here [...] continue on current therapy. LUCA DOMINGUEZ MD [address] [place] [address], [phone], [facility] 10/31/2024 13:30:16 12/03/2024 text/html ROS as noted in the HPI Patient requests a full body skin exam. 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
--- OUTSIDE RECORDS SUMMARY | 2025-06-17 07:45 | XMS_ITS | Clinical Summary ---
Author Organization [facility] Address [address] [place] [address] Care Team Providers Care Worm Grower Name Role Phone Clemente Levine MD Primary Care Provider [phone] Allergies Active Allergy Reactions Criticality Noted Date Comments Terbinafine Rash Low 07/22/2020 Medications Cholecalciferol (VITAMIN D-3) 1000 UNITS capsule Take 1,000 Units by mouth 2 (Two) Times a Day. Active fluticasone (FLONASE) 50 MCG/ACT nasal spray 1 spray into the nostril(s) as directed by provider. Active hydroCHLOROthia zide (HYDRODIURIL) 12.5 MG tablet 1 Active nitrofurantoin, macrocrystal-mo nohydrate, (MACROBID) 100 MG capsule TAKE 1 CAPSULE BY MOUTH ONCE DAILY DIRECTED FOR 90 DAYS 2 Active fluocinonide (LIDEX) 0.05 % external solution APPLY TOPICALLY TO SCALP EVERY DAY 2 Active estradiol (ESTRACE VAGINAL) 0.1 MG/GM vaginal cream Insert 0.5 g into the vagina 2 (Two) Times a Week. 42.5 g 3 2 Active Active Problems Problem Noted Date Diagnosed Date Osteoporosis 04/20/2016 NUNU (stress urinary incontinence, female) 2015 Vaginal atrophy 04/20/2016 Family History Medical History Relation Name Comments COPD Father 2006 after 18 mo in [place] Breast cancer Maternal Aunt Breast cancer Maternal Grandmother Heart failure Mother 11/18/19 at 94 yo Breast cancer Sister 1 Heather Relation Name Status Comments Father Maternal Aunt Maternal Grandmother Mother Sister 1 Heather Alive Sister 2 jaswinder Alive Social History Tobacco Use Types Packs/Day Years Used Date Smoking Tobacco: Never Smokeless Tobacco: Never Tobacco Cessation:Counseling Given: Not Answered Alcohol Use Standard Drinks/Week Comments Yes 0 (1 standard drink = 0.6 oz pur e alcohol) AUDIT-C Answer Date Recorded Q1: How often do you have a drink containing alc ohol? 2-3 times a week 07/22/2020 Average Number of Drinks Not on file 020 Frequency of Binge Drinking Not on file 11/2019 Abuse Screen Answer Date Recorded Unsafe at Home or Work/School Not on file Feels Threatened by Someone? Not on file 05/2023 Does Anyone Keep You from Co ntacting Others or Doint Things Outside the Home? Not on file 06/27/2023 Physical Sign of Abuse Present Not on file 1 Housing Stability Answer Date Recorded Current Living Arrangements Not on file 05/2023 Potentially Unsafe Housing Conditions Not on johs e 06/27/2023 Family and Community Support Answer Gustabo e Recorded Help with Day-to-Day Activities Not on file 06/27/2023 Lonely or Isolated Not on file 06/27/2023 Employment Answer Date Recorded Do you want help finding or keeping work or a lamont b? Not on file 06/27/2023 Disabilities Answer Date Recorded Concentrating, Remembering, or Making Decisions Difficulty Not on file 06/27/2023 Doing Errands Independently Difficulty Not on fi le 06/27/2023 Education Answer Date Recorded Help with school or training? Not on file Preferred Language Not on file 06/27/2023 Comments No Sex and Gender Information Value Date Recorded Sex Assigned at Not on file Legal Sex Female 12:06 PM EDT Gender Identity Not on file Sexual Orientation Not on file Last Filed Vital Signs Vital Sign Reading Time Taken Comments Blood Pressure 140/90 07/26/2022 10:02 AM EST Pulse - - Temperature - - Respiratory Rate 16 07/26/2022 10:02 AM EST Oxygen Saturation - - Inhaled Oxygen Concentration - - Weight 75.3 kg (166 lb) 07/26/2022 10:02 AM EST Height 158.8 cm (5' 2.5 ) 07/22/2020 10:57 AM ES T Body Mass Index 29.88 07/22/2020 10:57 AM EST Plan of Treatment Health Maintenance Due Date Last Done Comments DXA SCAN 1945 COLOGUARD 1990 COLON CANCER SCREENING 5 YEA R SIGMOIDOSCOPY 1990 COLONOSCOPY 1990 COLORECTAL CANCER SCREENING 1990 CT COLONOGRAPHY 1990 FECAL OCCULT BLOOD TEST 1990 FIT Testing (1 year) 1990 ZOSTER VACCINE (1 of 2) 1995 ANNUAL WELLNESS VISIT 04/21/2017 HEPATITIS C SCREENING 04/21/2017 Pneumococcal Vaccine 50+ (2 of 2 - PPSV23) 08/07/2019 08/07/2018 RSV Vaccine - Adults (1 - 1- dose 75+ series) 2020 INFLUENZA VACCINE 04/19/2025 COVID-19 Vaccine (1 - 2023-2 5 season) 2025 TDAP/TD VACCINES (3 - Td or Tdap) 12/23/2030 021, 11/25/1996 MAMMOGRAM Discontinued 06/07/2022, 05/20, 06/02/2020, Additional history exists Procedures Procedure Name Priority Date/Time Associated Diagnosis Comments SCANNED - MAMMO 06/07/2022 from Last 3 Months or Most Recently Relevant to Health Maintenance Results * SCANNED - MAMMO (06/07/2022) Anatomical Region Laterality Modality Other Patsy Chery APRN CHART REVIEW TABS Fi nal Result from Last 3 Months or Most Recently Relevant to Health Maintenance Insurance [facility]PL[facility] Care Teams Worm Grower Relationship Specialty Start Date End Date Clemente Levine MD [address] [place] [address] [place] [address] PCP - General Internal Medicine 04/21/17
--- NOTE | 2025-06-17 08:00 | MM_ITS ---
PROCEDURE INFORMATION: Exam: MG Bilateral Screening 3D Mammography Exam date and time: 06/17/2025 8:04 AM Age: 79 years old Clinical indication: Screening exam. TECHNIQUE: Imaging protocol: Bilateral Screening tomosynthesis and 2D mammography including computer-aided detection (CAD) when performed. COMPARISON: 1. MG MM DIG SCREENING MAMM BI W/CAD 06/13/2024 10:25 AM 2. MG SCREENING KATHIE MAMMOGRAM 06/09/2023 2:44 PM FINDINGS: MAMMOGRAPHY: Breast composition: The breasts are heterogeneously dense, which may obscure small masses. Mass: No suspicious masses. Architectural distortion: None. Calcifications: No suspicious calcifications. Asymmetric density: None. Skin thickening: None. Axillary adenopathy: None. IMPRESSION: No mammographic evidence of malignancy. Annual screening is recommended unless otherwise clinically indicated. ASSESSMENT: BI-RADS Category 1: Negative.
== END 2025-06-17 23:59 | disposition home or self-care (01) ==
LOC: RAD 07:44
PROVIDERS: PCP Internal Medicine; Visit Provider Obstetrics & Gynecology
DX: Z12.31 Encounter for screening mammogram for malignant neoplasm of breast (principal); R92.333 Mammographic heterogeneous density, bilateral breasts
CPT/HCPCS: 77063; 77067

== ENCOUNTER 2025-07-15 11:40 | Outpatient (CLI) | payer MEDICARE, SELFPAY ==
--- OUTSIDE RECORDS SUMMARY | 2025-07-04 07:19 | XMS_ITS | Encounter Summary ---
Author Organization [employer] ([place], [place], [place], [place]) Address [address] [place] [address] Care Team Providers Care Talend Etl Developer Name Role Phone Clemente Levine MD Primary Care Provider [phone] Reason for Visit * Reason Comments Fall Encounter Details Date Type Department Care Team (Late st Contact Info) Description 07/04/2025 7:19 AM EDT - 07/04/2025 11:38 AM EDT Emergency [facility] Emergency Department [address] [place] [address] Mike Lugo, [facility] [place] [address] Laceration of scalp, initial encounter (Primary Dx) [...] be sent through Care Everywhere. * Sutures [place] or Adhesive Wound Closure (Portuguese) documented in this encounter ED Notes * [...] file Social Connections: Unknown (06/27/2023) Received from [facility] Family and Community Support Help with Day-to-Day [...] Units Date/Time CT brain without IV contrast [[id number]] Collected: 07/04/25917 Order Status: Completed Updated: 07/04/25921 [...] interpreted, and dictated by James Diggs MD [facility] Initial impression of presenting illness: Chief Complaint [...] other - see admin instructions/comments Given 07/04/25 0838) acetaminophen (TYLENOL) tablet 650 mg (650 mg oral Given 07/04/25 0826) Discharged in stable condition supportive care recommendations [...] by James Diggs MD Mike Lugo DO [facility] [place] ORDER[place]LES Final Result documented in this [...] Johnson) documented in this encounter Care Teams Talend Etl Developer Relationship Specialty Start Date End Date Clemente Levine MD [address] [place] [address] [place] [address] PCP - General General Internal Medicine 07/04/25 documented as of this encounter
[2025-07-15 17:11] LABS: Alanine Aminotransferase 24 U/L (12-78); Albumin Level 3.6 g/dl (3.5-5.0); Albumin/Globulin Ratio 1.2 (1.1-1.8); Alkaline Phosphatase 118 U/L (38-126); Anion Gap 13.2 mEq/L (5-15); Aspartate Amino Transferase 27 U/L (14-36); Bilirubin,Total 0.9 mg/dl (0.2-1.3); Blood Urea Nitrogen 15 mg/dl (7-17); Calcium 10.3 mg/dl (8.4-10.2); Carbon Dioxide 26 mmol/L (22.0-30.0); Chloride 102 mmol/L (98-107); Cholesterol 220 mg/dl (140-200); Creatinine,Serum 0.80 mg/dl (0.52-1.04); Estimated Glomerular Filt Rate 69 ml/min (>60); GFR (African American) 84 ML/MIN (>60); Globulin 3.0 g/dL (1.3-3.2); Glucose 80 mg/dl (74-100); HDL Cholesterol 66 mg/dl (40-60); Potassium 4.2 mmoL/L (3.5-5.1); Sodium 137 mmol/L (136-145); Total Protein,Serum 6.6 g/dl (6.3-8.2); Triglycerides 121 mg/dl (30-150)
--- OUTSIDE RECORDS SUMMARY | 2025-07-16 10:01 | XMS_ITS | Encounter Summary ---
Author Organization [email or web address] ([place], [place], [place], [place]) Address [address] [place] [address] Care Team Providers Care Cargo Worker Name Role Phone Clemente Levine MD Primary Care Provider [phone] Encounter Details Date Type Department Care Team (Latest Contact Info) Description 07/04/2025 Travel Social History Tobacco Use Types Packs/Day Years Used Date Smoking Tobacco: Never Assessed Comments Unknown Sex and Gender Information Value Date Recorded Sex Assigned at Not on file Legal Sex Female 1:10 PM CDT Gender Identity Not on file Sexual Orientation Not on file documented as of this encounter Plan of Treatment Not on file documented as of this encounter Visit Diagnoses Not on filedocumented in this encounter Care Teams Cargo Worker Relationship Specialty Start Date End Date Clemente Levine MD [address] [place] [address] [place] [id number] PCP - General General Internal Medicine 07/04/25 documented as of this encounter
--- OUTSIDE RECORDS SUMMARY | 2025-07-16 10:01 | XMS_ITS | Referral Summary ---
Author Organization [employer] ([place], [place], [place], [place]) Address [address] [place] [address] Care Team Providers Care Supervisor Lending Activities Name Role Phone Clemente Levine MD Primary Care Provider [phone] Encounters Date Type Department Care Team Description 07/04/2025 Travel 07/04/2025 7:19 AM EDT - 07/04/2025 11:38 AM EDT Emergency [facility] Emergency Department [address] [place] [id number] Mike Lugo DO Laceration of scalp, initial encounter (Primary Dx) Discharge Disposition: Home or Self Care from Last 3 Months Allergies No known active allergies Medications No known medications Social History Tobacco Use Types Packs/Day Years [...] Mass Index 28.87 07/04/2025 7:26 AM EDT Plan of Treatment Not on file Procedures Procedure Name Priority Date/Time Associated Diagnosis Comments CT BRAIN WITHOUT IV CONTRAST STAT 07/04/2025 9:06 AM EDT from Last 3 Months Results * CT brain without IV contrast [...] by James Diggs MD Mike Lugo DO IMG CT ORDERABLES Final Result from Last 3 Months Insurance [place] [id number] [facility] MEDICARE ADVANTAGE Care Teams Supervisor Lending Activities Relationship Specialty Start Date End Date Clemente Levine MD [address] [place] [address] [place] [phone] PCP - General General Internal Medicine 07/04/25
--- OUTSIDE RECORDS SUMMARY | 2025-07-16 10:01 | XMS_ITS | Clinical Summary ---
Author Organization [facility] Address [address] [place] [address] Care Team Providers Care Physical Chemist Name Role Phone Clemente Levine MD Primary Care Provider [phone] Allergies Active Allergy Reactions Criticality Noted Date [...] COPD Father 2006 after 18 mo in [place] Breast cancer Maternal Aunt Breast cancer Maternal [...] 05/2023 Potentially Unsafe Housing Conditions Not on josh e 06/27/2023 Family and Community Support Answer [...] Date Last Done Comments DXA SCAN 1945 COVID-19 Vaccine (#1) 1950 COLOGUARD 1990 COLON CANCER SCREENING 5 YEA R SIGMOIDOSCOPY 1990 COLONOSCOPY 1990 [address] CANCER SCREENING 1990 CT COLONOGRAPHY 1990 FECAL OCCULT BLOOD TEST 1990 FIT Testing (1 year) 1990 ZOSTER VACCINE (1 of 2) 1995 ANNUAL WELLNESS VISIT 04/21/2017 HEPATITIS C SCREENING 04/21/2017 Pneumococcal Vaccine 50+ (2 of 2 - PCV20 or PCV21) 08/07/2019 08/07/2018 RSV Vaccine - Adults (1 - 1- dose 75+ series) 2020 INFLUENZA VACCINE 04/19/2025 TDAP/TD VACCINES (3 - Td or Tdap) [...] Most Recently Relevant to Health Maintenance Insurance [facility] MEDICARE REPLACE Care Teams Physical Chemist Relationship Specialty Start Date End Date Clemente Levine MD [address] [place] [facility] [address] [facility] [place] [address] PCP - General Internal Medicine 04/21/17
--- OUTSIDE RECORDS SUMMARY | 2025-07-16 10:01 | XMS_ITS | Clinical Summary ---
Author Organization [employer] ([place], [place], [place], [place]) Address [address] [place] [address] Care Team Providers Care Technical Customer Support Specialist Name Role Phone Clemente Levine MD Primary Care Provider [phone] Allergies No known active allergies Medications No known medications Encounters Date Type Department Care Team Description 07/04/2025 7:19 AM EDT - 07/04/2025 11:38 AM EDT Emergency [facility] Emergency Department [address] [place] [phone] Mike Lugo DO Laceration of scalp, initial encounter (Primary Dx) Discharge Disposition: Home or Self Care 07/04/2025 Travel from Last 3 Months Social History Tobacco Use Types Packs/Day Years [...] 07/04/2025 7:26 AM EDT Plan of Treatment Health Maintenance Due Date Last Done Comments DXA SCAN 1945 Depression Screening (12+) 1957 Tobacco Cessation Counseling and Screening (12+) 1957 Hepatitis C Screening 1963 Shingles Vaccine (Zoster) (1 of 2) 1995 Pneumococcal 50+ years (2 of 2 - PCV20 or PCV21) 08/07/2019 08/07/2018 Respiratory Syncytial Virus (RSV) Adult or (1 - 1-dose 75+ series) 2020 Falls Risk Screening 09/19/2024 Medicare IPPE (Welcome to [place]) [id number] 09/19/2024 COVID-19 VACCINE ( season) 2025 07/31/2021, 11/21/2020, 10/24/2020 Influenza Vaccine (#1) 2025 07/16/2024 DTAP/TDAP/TD VACCINES (3 - T d or Tdap) 12/23/2030 12/23/2020, 11/25/1996 Procedures Procedure Name Priority Date/Time Associated Diagnosis [...] from Last 3 Months Insurance [place] [id number] [facility] MEDICARE ADVANTAGE Care Teams Technical Customer Support Specialist Relationship Specialty Start Date End Date Clemente Levine MD [address] [place] [phone] PCP - General General Internal Medicine 07/04/25
--- OUTSIDE RECORDS SUMMARY | 2025-07-16 10:02 | XMS_ITS | Data Portability ---
Author Organization [facility] SHANTAL De GuzmanS BARNETT CLOSED Address [address] [place] [address] Care Team Providers Care Belt Maker Name Role Phone INES BATISTA Primary Care [...] prepped and draped in standard manner. An 18-Hungarian urethral catheter was placed. The bladder neck [...] Lab urinalysi s panel, auto 2022 023 [email or web address] Formerly [facility], [address] [place] [address], [address], [place], [address], 01/10/2023 15:51:10 Referral None recorded. Procedures None recorded. Surgeries None recorded. Imaging None recorded. Medication Orders Macrobid 100 mg capsule 2024 025 [facility], [address], [address], 10/31/2024 13:29:34 Macrobid 100 mg capsule 2023 024 [facility], [address], [address], 10/23/2023 14:21:37 Patient TargetsNo targets recorded. Patient InstructionsNo instructions recorded. Reason for Referral None Reported. Results Created Date Observation Date Name Description Value Unit Range Abnormal Flag Note LastModifiedBy Organization Detail LastModifiedTime 01/11/20 23 01/10/2023 urina lysis panel , auto Unknown Analyte Clean Catch Not Available [facility] [address], [place], [address], 01/10/2023 15:02:58 01/11/20 23 01/10/2023 urina lysis panel , auto Unknown Analyte Yellow Not Available [facility] [address], [place], [address], 01/10/2023 15:02:58 01/11/20 23 01/10/2023 urina lysis panel , auto Unknown Analyte Clear Not Available [facility] [address], [place], [address], 01/10/2023 15:02:58 01/11/20 23 01/10/2023 urina lysis panel , auto Unknown Analyte 1.020 Not Available [facility] [address], [place], [address], 01/10/2023 15:02:58 01/11/20 23 01/10/2023 urina lysis panel , auto Unknown Analyte 5.0 Not Available [facility] [address], [place], [address], 01/10/2023 15:02:58 01/11/20 23 01/10/2023 urina lysis panel , auto Unknown Analyte 25 Yarelis/ul Trace Not Available [facility] [address], [place], [address], 01/10/2023 15:02:58 01/11/20 23 01/10/2023 urina lysis panel , auto Unknown Analyte Negati ve Not Available [facility] [address], [place], [address], 01/10/2023 15:02:58 01/11/20 23 01/10/2023 urina lysis panel , auto Unknown Analyte Negati ve Not Available [facility] [address], [place], [address], 01/10/2023 15:02:58 01/11/20 23 01/10/2023 urina lysis panel , auto Unknown Analyte Normal Not Available [facility] [address], [place], [address], 01/10/2023 15:02:58 01/11/20 23 01/10/2023 urina lysis panel , auto Unknown Analyte Negati ve Not Available [facility] [address], [place], [address], 01/10/2023 15:02:58 01/11/20 23 01/10/2023 urina lysis panel , auto Unknown Analyte Normal Not Available [facility] [address], [place], [address], 01/10/2023 15:02:58 01/11/20 23 01/10/2023 urina lysis panel , auto Unknown Analyte Negati ve Not Available [facility] [address], [place], [address], 01/10/2023 15:02:58 01/11/20 23 01/10/2023 urina lysis panel , auto Unknown Analyte Negati ve Not Available [facility] [address] [facility] [address], [place], [address], 01/10/2023 15:02:58 06/09/20 23 06/09/2023 MAMMO , scree adelina, tomos ynthe sis, bilat eral, w/ CAD Lexing ton [facility] [address] [place] [place] [address] Viktoriya dumont Name: ASIA dumont : 1944 [...] from the 3D datase t using C-View softSpace Apart re. The study was read with the [...] Lam Dover on 023 2:52 PM [email or web address] [facility] [address] [place], [address], 06/09/2023 15:18:18 Result Notes Documentation Provider Name and Address Organization Details Recorded Time Mammo, Screening, Tomosynthesis, Bilateral, W/ Cad : [facility] [address] [place] [address] Patient Name: ASIA ESTRELLA Patient : 1945 Age: 77 years Patient Ordering Provider: INES BATISTA JR EXAM DATE: 06/09/2023 EXAM: MG SCREENING KATHIE MAMMOGRAM INDICATION: Routine screening. PROCEDURE: Multislice imaging of both breasts was performed in standard projections using [employer] tomosynthesis equipment (3D mammography). 2D images [...] patient. Interpreted By: Lam Dover Edu Buchanan [facility] 06/09/2023 15:18:18 Problems Name Problem SNOMED Code Status Onset Date Resolution Date Notes Provider Name and Address Organization Details Recorded Time Actinic keratosis 543677257 Active 025 Chetna Ramirez [facility] 5 10:37:56 Inflamed seborrheic keratosis 155810888 Active 025 Chetna Ramirez [facility] 5 10:39:46 Problem Notes Documentation Provider Name and Address Organization Details Recorded Time Urologist Consult Note : [facility] [address] [facility] [address]NFOHWRE, Mara B (id #[id number], : 1945) [facility] [address] [place] [address] Encounter Summary - Progress Note Date Printed: [...] received this fax in error, please visit [email or web address] to notify the sender and confirm that the information will be destroyed. If you do not have internet access, please call to notify the sender and confirm that the information will be destroyed. Thank you for your attention and cooperation. [ID:[id number]] Patient Asia Estrella (77yo, F) #[id number] 1945 Patient Demographics: Address [address] [place] [address] [place] [address] Encounter Notes: Encounter Reason/DateNone recorded 01/10/2023 - 03:15PM - [facility]UN[facility] History of Present [...] 6 weeks postop. Review of SystemsNone recorded [id number] 15:02 Ht: 5 ft 3 in Wt: [...] Plan1. Female stress incontinence-As above follow-up 6 tjjpaqU94.3: Stress incontinence (female) (male) URINALYSIS PANEL, AUTO [...] Office LUCA DOMINGUEZ MD for RECHECK at [facility] on 01/26/2023 at 03:00 PM Patient Medical History: Allergies List Allergies not reviewed (last reviewed 12/25/2021) NKDA Medications Reviewed Medications NameDate Source gkpevbmju27/26/21 entered Felicity Majors estradioL 0.01% (0.1 mg/gram) vaginal creamINSERT 0.5 GRAMS INTO THE VAGINA 2 TIMES A WEEK09/06/22 filled surescripts fluocinonide 0.05 % topical solutionAPPLY TOPICALLY TO SCALP EVERY DAY09/06/22 filled surescripts hydroCHLOROthiazide 12.5 mg tabletTAKE 1 TABLET BY MOUTH ONCE DAILY12/20/22 filled surescripts ibandronate 150 mg txibhn49/10/17 filled [facility] levoFLOXacin 500 mg tabletTAKE 1 TABLET BY MOUTH EVERY 24 HOURS FOR 10 DAYS11/03/21 filled surescripts nitrofurantoin monohydrate/macrocrystals 100 mg capsuleTAKE 1 CAPSULE BY MOUTH ONCE DAILY DIRECTED FOR 90 DAYS12/20/22 filled surescripts ofloxacin 0.3 % eye drops02/01/18 filled [facility] phenazopyridine 200 mg cyqcub01/09/16 filled [facility] Premarin 0.625 mg/gram vaginal creamInsert by vaginal route.09/24/22 auth requested LUCA DOMINGUEZ MD raloxifene 60 mg rkikar92/21/17 filled [facility] sulfamethoxazole 800 mg-trimethoprim 160 mg tabletTake 1 tablet(s) every 12 hours by oral route as directed for 14 days.07/27/22 filled surescripts terbinafine HCL 250 mg tabletTAKE 1 TABLET BY MOUTH ONCE DAILY FOR 90 DAYS12/31/19 filled surescripts traMADoL 50 mg tabletTAKE 1 TABLET BY MOUTH EVERY 6 HOURS12/15/22 filled surescripts Vaqta (PF) 50 unit/mL intramuscular buhvddrcsa60/12/18 filled [facility] Family HistoryFamily History not reviewed (last reviewed 10/29/2022) Past Medical HistoryPast Medical History not reviewed (last reviewed 06/15/2021) Vaccine HistoryNone recorded Electronically Signed by: LUCA DOMINGUEZ MD Deisy Geller [facility] 01/10/2023 16:11:35 Progress Note : [facility] [address] [place] [address], [facility] [id number], Asia Nicole (id #[id number], : 1945) [address] [place] [address] Encounter Summary - Progress Note Date Printed: [...] received this fax in error, please visit [email or web address] to notify the sender and confirm that the information will be destroyed. If you do not have internet access, please call to notify the sender and confirm that the information will be destroyed. Thank you for your attention and cooperation. [ID:[id number]] Patient Asia Estrella (78yo, F) #[id number] 1945 Patient Demographics: Address [address] [place] [address] Encounter Notes: Encounter Reason/DateNone recorded 10/19/2023 - 02:15PM - [facility] History of Present IllnessPatient [...] in the extremities, and no neck pain. [id number] 13:39 Ht: 5 ft 3 in Wt: 161 lbs BMI: 28.5 Results/InterpretationsNone recorded Physical ExamNone recorded Procedure DocumentationNone recorded Assessment and Plan1. Chronic infective cystitis-Lymph nodeCurrently doing well, follow-up 1 year ftflgxX27.20: Other chronic cystitis without hematuria Macrobid 100 mg capsule - To be submitted on or around 10/23/2023 Take 1 capsule(s) every day by oral route as directed for 90 days. Qty: (90) capsule Refills: 3 Pharmacy: [facility] Return to Office LUCA DOMINGUEZ MD for RECHECK at [facility] on 10/22/2024 at 10:45 AM Patient Medical History: Allergies List Reviewed Allergies NKDA Medications Reviewed Medications NameDate Source nsdamguhl77/26/21 entered Felicity Alvarez estradioL 0.01% (0.1 mg/gram) vaginal creamINSERT 0.5 GRAMS INTO THE VAGINA 2 TIMES A WEEK07/14/23 filled surescripts fluocinonide 0.05 % topical solutionAPPLY TOPICALLY TO SCALP EVERY DAY09/06/22 filled surescripts hydroCHLOROthiazide 12.5 mg tabletTAKE 1 TABLET BY MOUTH ONCE DAILY10/05/23 filled surescripts ibandronate 150 mg nkpqli32/10/17 filled [facility] levoFLOXacin 500 mg tabletTAKE 1 TABLET BY MOUTH EVERY 24 HOURS FOR 10 DAYS11/03/21 filled surescripts Macrobid 100 mg capsuleTake 1 capsule(s) every day by oral route as directed for 90 days.10/23/23 prescribed LUCA DOMINGUEZ MD ofloxacin 0.3 % eye drops02/01/18 filled [facility] phenazopyridine 200 mg tewnqk63/09/16 filled [facility] Premarin 0.625 mg/gram vaginal creamInsert by vaginal route.09/24/22 auth requested LUCA DOMINGUEZ MD raloxifene 60 mg /21/17 filled [facility] sulfamethoxazole 800 mg-trimethoprim 160 mg tabletTake 1 tablet(s) every 12 hours by oral route as directed for 14 days.07/27/22 filled surescripts terbinafine HCL 250 mg tabletTAKE 1 TABLET BY MOUTH ONCE DAILY FOR 90 DAYS12/31/19 filled surescripts traMADoL 50 mg tabletTAKE 1 TABLET BY MOUTH EVERY 6 HOURS12/15/22 filled surescripts Vaqta (PF) 50 unit/mL intramuscular abbjucemjq60/12/18 filled [facility] Family HistoryFamily History not reviewed (last reviewed 10/29/2022) Past Medical HistoryPast Medical History not reviewed (last reviewed 06/15/2021) Vaccine HistoryNone recorded Electronically Signed by: LUCA DOMINGUEZ MD ANA Lew [facility] 10/26/2023 15:55:03 Progress Note : [facility] [address] [facility] [address]WMISJRY, Mara B (id #[id number], : 1945) [facility] [address] [place] [address] Encounter Summary - Progress Note Date Printed: [...] received this fax in error, please visit [email or web address] to notify the sender and confirm that the information will be destroyed. If you do not have internet access, please call to notify the sender and confirm that the information will be destroyed. Thank you for your attention and cooperation. [ID:[id number]] Patient Asia Estrella (79yo, F) #[id number] 1945 Patient Demographics: Address [address] [place] [address] Encounter Notes: Encounter Reason/Date yearly 10/31/2024 - 01:15PM - [facility] History of Present [...] Chronic infective cystitis-doing well, follow-up 1 year vkszohO44.20: Other chronic cystitis without hematuria Macrobid 100 mg capsule - Take 1 capsule(s) every day by oral route as directed for 90 days. Qty: (90) capsule Refills: 3 Pharmacy: [facility] Return to Office AMAURI DEL CID PA-C for RE ESTABLISH DAK at [facility] on 12/03/2024 at 10:20 AM LUCA DOMINGUEZ MD for RECHECK at [facility] on 11/01/2025 at 10:00 AM [...] 90 days.10/31/24 prescribed LUCA DOMINGUEZ MD [employer]er[employer]ision UHJQYEGN80/12/25 entered Isabelle Felipe Dvbijxvsmfzw91/12/25 entered Isabelle Felipe Family HistoryFamily History not reviewed (last reviewed 10/29/2022) Past Medical HistoryPast Medical History not reviewed (last reviewed 06/15/2021) Vaccine HistoryNone recorded Electronically Signed by: LUCA DOMINGUEZ MD ANA Molina [facility] 10/31/2024 13:32:44 Progress Note : [facility] [address] [facility] [facility] [address]GVFATJJ, Mara B (id #[id number], : 1945) [facility] [address] [place] [address] Date: 12/04/2024RE: Asia Estrella, : 1945, PT ID #[id number] Koch MD, I would like to thank you for referring Asia Estrella to our practice for consultation and evaluation. I have enclosed a copy of the office evaluation for your records. Sincerely, Electronically Signed by: AMAURI DEL CID PA-C, Ivana Reason/Date Full Skin Check H/O Skin Cancer 12/03/2024 - 10:20AM - [facility] History of Present IllnessPatient requests a [...] deltoid x1, L forehead x3, L elbow [id number] DocumentationDAK - Cryo AK:Destruction Premalignant Lesions: Patient [...] at regular intervals for skin exam as yuoqfdoaqatB75.828: Personal history of other malignant neoplasm of [...] for appointment with any changing or worrisome fcxocggM27.5: Melanocytic nevi of trunk 3. Seborrheic keratosis- Self-Limited/Minor - Benign overgrowths of skin EeancapokcD38.1: Other seborrheic keratosis 4. Senile angioma- Self-Limited/Minor - Benign blood vessel growths NmcsuouetjJ16.1: Nevus, non-neoplastic 5. Solar lentigo- Self-Limited/Minor - Benign brown spots Sun-vlwtzjoO29.4: Other melanin hyperpigmentation 6. Actinic keratosis-Actinic keratoses [...] Office LUCA DOMINGUEZ MD for RECHECK at [facility] on 11/01/2025 at 10:00 AM AMAURI DEL CID PA-C for FOLLOW UP DAK at [facility] on 12/10/2025 at 11:10 AM [facility] 08:15:51 Procedures Surgical History Date Name Laterality Status Provider Name and Address Organization Details Recorded Time 5 [facility] - Cryo AK completed [facility] 12/03/2024 10:41:44 5 [facility] - Destruction BN Lesions completed [facility] 12/03/2024 10:42:52 Orthopedic Surgery completed Hugo Yee [facility] 09/14/2017 15:46:08 Imaging Results None recorded. Procedure [...] Updated DateTime 10/19/2023 160.02 cm 28.5 kg/m2 47863.37 g Ale Hopkins [facility] 10/19/2023 13:39:27 Date Recorded Body height Body mass index (BMI) Body weight Provider Name and Address Organization Details Last Updated DateTime 10/31/2024 160.02 cm 28.9 kg/m2 19415.56 g Isabelle Matteo [facility] 10/31/2024 12:59:59 Date Recorded Body height Body mass index (BMI) Body weight Provider Name and Address Organization Details Last Updated DateTime 01/10/2023 160.02 cm 28.5 kg/m2 29466.37 g Kenia Wu [facility] 01/10/2023 15:02:48 Social History Question Answer Notes LastModified by Organizat ion Details LastModified Time Tobacco Smoking Status Never [facility]oker [facility] 09/14/2017 15:45:58 Accident Related Injury Yes [email or web address] Information not available 10/19/2017 How Much Tobacco Do You Chew? None [email or web address] Information not available 06/13/2020 Which Of Your Hands Is Dominant? Right akzzly23 Information not available 10/19/2017 Which Hand Is Involved? Right gpllfo40 Information not available 10/19/2017 When Are Your Symptoms The Worst? Night Day Neither Neither ugcroq42 Information not available 10/19/2017 Date Of Injury: DOI 09-10-2017 [email or web address] Information not available 10/19/2017 Have You Been Treated For This Problem Before? No fslqof41 Information not available 10/19/2017 Will This Be Filed As Workers' Compensation? No [email or web address] Information not available 10/19/2017 What Was The Date Of Your Most Recent Tobacco Screening? 02/06/2018 Information not available 11/06/2019 How Much Tobacco Do You Smoke? No [email or web address] Information not available 06/13/2020 Has Tobacco Cessation Counseling Been Provided? No Information not available 06/15/2021 Have You Recently Traveled Abroad? No [email or web address] Information not available 06/15/2021 Work Related Injury? No [email or web address] Information not available 10/19/2017 Sex: Unknown Functional Status Question Answer Note LastModified by Organizat ion Details LastModified Time Do you use any illicit or recreational drugs? No tveghtnl97 Information not available 06/15/2021 Do you or have you ever used any other forms of tobacco or nicotine? No nawxvyjy45 Information not available 06/15/2021 What is your level of alcohol consumption? None [email or web address] Information not available 06/15/2021 Are you currently employed? No [email or web address] Information not available 10/19/2017 What is your occupation? Retired tosqie48 Information not available 10/19/2017 Mental Status None recorded. Family History Relationship Description Onset Age of this Age Resolved Age Notes LastModified by Organization Details LastModified Time Father Basal cell carcinoma of skin [email or web address] Not available 12/03 10:20:45 Medical History Condition Response Allergies/Hayfever N Gout N Anxiety/Depression N Other N Squamous Cell Carcinoma Y Thyroid Disease N Kidney Stones N Heart Conditions N Hernia N Migraines N Glaucoma N COPD N Pneumonia N Skin Problems N Immune System Disorder N Anesthesia Complications N Heart Attack ([place]) N Mental Illness N Neurological Problems N Diabetes N Rheumatic Fever N Autoimmune disease N Bleeding Disorder N Arthritis N Seizures/Epilepsy [...] ICD10 Code Diagnosis IMO Codes Diagnosis Note [id number] LUCA DOMINGUEZ MD SURGERY SCHEDULE [address] [place] [address] 06/29/2017 10:12:13 06/29/2017 10:16:00 [id number] SHARMILA ZAPIEN MD [facility] [address] [place] [address] 09/14/2017 14:31:23 09/20/2017 08:13:23 Closed fracture of upper end of humerus 99648508 S42.201A Ms Estrella has a non displaced right proximal humerus fractureI recommend continued protection with the shoulder immobilize rI recommend she perform active range of motion of the elbow and wristI asked her to return to see me in several weeks for follow up xrays Fracture o f phalanx of finger 13541298 S62.656A Ms Estrella has a concommita nt injury to the hand as well. I recommend continued protection of the small finger iam taping to the ring finger or continuati on of splint per her preference . [id number] SHARMILA ZAPIEN MD [facility] [address] [place] [address] 09/21/2017 12:53:03 09/21/2017 14:20:00 Closed fracture of upper end of humerus 42074400 S42.201A Ms Estrella has a non displaced right proximal humerus fractureI recommend continued protection with the shoulder immobilize rI recommend she perform active range of motion of the elbow and wristI asked her to return to see me in several weeks for follow up xrays and progressio n to formal PT Fracture o f phalanx of finger 35337876 S62.656A Ms Estrella has fractures of the right small finger which are intra-cathryn cular I recommend consultati on with hand surgery [id number] DAYANARA KOCH MD [facility] [address] [place] [address] 09/21/2017 13:49:51 09/21/2017 14:33:44 Fracture of proximal phalanx of finger 170827498 S62.616A I recommende d closed treatment for now. I will see her back in 2 weeksfor x-rays out of cast [id number] SHARMILA ZAPIEN MD [facility] [address] [place] [address] 10/05/2017 13:47:55 10/10/2017 08:32:20 Closed fracture of upper end of humerus 11166059 S42.201A Ms Estrella has a healing proximal humerus fractureI recommend continued protection of the fracture and formal physical therapy to help with her passive motion. [id number] DAYANARA KOCH MD [facility] [address] [place] [address] 10/05/2017 11:16:45 10/05/2017 14:06:44 Fracture of proximal phalanx of finger 138760417 S62.616A P1 fracture/P 2 base fracture. Splint that she can remove for shower, range of motion unaffected joints, follow-up 2 more weeks for x-rays out of splint. [id number] DAYANARA KOCH MD [facility] [address] [place] [address] 10/19/2017 09:34:28 10/19/2017 10:26:15 Fracture of proximal phalanx of finger 603980430 S62.616A 4 weeks postop, fracture healed, discontinu e splint, discontinu e Coban, recommend range of motion and strengthen ing exercises [id number] SHARMILA ZAPIEN MD [facility] [address] [place] [address] 11/02/2017 13:24:47 11/21/2017 07:29:33 Closed fracture of upper end of humerus 36469117 S42.201A Ms Estrella has a healing proximal humerus fractureI recommend continued protection of the fracture and formal physical therapy to help with her motion. She is to return to see me in 4 weeks to check her progressio n of motion and function. I do not anticipate she will need further xrays at that time. [id number] DAYANARA KOCH MD [facility] [address] [place] [address] 11/14/2017 15:38:54 11/14/2017 16:20:13 Fracture of proximal phalanx of finger 625785495 S62.616A Continue range of motion exercises and strengthen ing, she is now about 9 weeks out, it is a little slow recovering however she is making good progress now. Follow-up 6 weeks. [id number] SHARMILA ZAPIEN MD [facility] [address] [place] [address] 12/07/2017 13:16:01 12/07/2017 17:34:33 Closed fracture of upper end of humerus 52237511 S42.201A Ms Estrella has clinically and radiograph [...] need further physical therapy for the shoulder. [id number] DAYANARA KOCH MD [facility] [address] [place] [address] 12/26/2017 13:29:49 12/26/2017 17:45:50 Fracture of proximal phalanx of finger [id number] S62.616A Doing great, full use, continue therapy 3-4 weeks, follow-up as needed. [id number] SHARMILA ZAPIEN MD [facility] [address] [address] 02/06/2018 10:13:12 02/07/2018 08:00:48 Closed fracture of upper end of humerus 31349840 S42.201A Ms Estrella has clinically and radiograph ically healed her proximal humerus fractureSh e returned to see me today to confirm adequate restoratio n of motion and function. She is doing well at this point and I asked her to progress with activity as tolerated and return to see me as needed. [id number] LUCA DOMINGUEZ MD SURGERY SCHEDULE [address] [place] [address] 02/28/2019 06:52:52 02/28/2019 06:58:10 [id number] LUCA DOMINGUEZ MD [facility] [address] [address] 11/27/2019 12:59:16 11/27/2019 14:15:57 Urinary tract infectious disease 98928138 N39.0 Chronic in fective cystitis 190137837 N30.20 she will resume Macrodanti n daily at bedtime follow-up 6 months [id number] LUCA DOMINGUEZ MD [facility] [address],[place] [address] 0 06/13/2020 10:49:11 06/13/2020 11:41:26 Urinary tract infectious disease 68386632 N39.0 as above follow-up 6 months if her urine is acceptable Chronic in fective cystitis 721764062 N30.20 she will resume Macrodanti n daily at bedtime follow-up 6 months [id number] LUCA DOMINGUEZ MD [facility] [address],[place] [address] 0 07/30/2020 13:10:45 07/30/2020 14:38:27 Chronic cystitis 76933687 N30.20 plan as above. [id number] LUCA DOMINGUEZ MD [facility] [address],[place] [address] 0 12/12/2020 09:59:12 12/12/2020 10:40:21 Urinary tract infectious disease 04589956 N39.0 as above follow-up 6 months if her urine is acceptable Chronic in fective cystitis 137137826 N30.20 Doing well currently Atrophic vaginitis 03470 000 N95.2 [id number] MD [facility] [address],[place] [address] 06/15/2021 10:42:12 06/15/2021 11:09:32 Chronic infective cystitis 753370809 N30.20 Doing well currently, follow-up 6 months Atrophic vaginitis 31704 000 N95.2 continue Estrace [id number] LUCA DOMINGUEZ MD [facility] [address] [place], [place] [address] 10/28/2021 09:49:45 10/28/2021 09:50:31 [id number] LUCA DOMINGUEZ MD [facility] [address],[place] [place] [address] 12/25/2021 08:48:48 12/25/2021 09:35:58 Chronic infective cystitis 529475035 N30.20 Doing well currently, follow-up 6 months Atrophic vaginitis 54187 000 N95.2 continue Estrace [id number] MD [facility] [address],[place] [address] 07/16/2022 10:54:45 07/20/2022 10:15:07 Acute urinary tract infection 577612749 N39.0 Plan as above Female uri nary stress incontinence 47754871 N39.3 As above [id number] LUCA DOMINGUEZ MD [facility] [address] [place] [address] 10/29/2022 09:43:34 10/29/2022 15:32:37 Female urinary stress incontinence 89833348 N39.3 As aboveWe will arrange for suburethra l sling TOT Chronic in fective cystitis 654465566 N30.20 Currently doing well [id number] LUCA DOMINGUEZ MD SURGERY SCHEDULE [address] [place] [address] 12/15/2022 08:28:19 12/15/2022 08:29:36 [id number] MD [facility] [address] [place] [address] 01/10/2023 14:51:40 01/10/2023 16:59:00 Female urinary stress incontinence 31791049 N39.3 As above follow-up 6 months Chronic in fective cystitis 576905678 N30.20 Currently doing well [id number] MD [facility] [address] [address] 10/19/2023 13:03:50 10/19/2023 15:22:00 Chronic infective cystitis 213848518 N30.20 Lymph nodeCurren tly doing well, follow-up 1 year sooner [id number] LUCA DOMINGUEZ MD [facility] [address] [place] [address] 10/31/2024 12:41:12 10/31/2024 13:29:53 Chronic infective cystitis 761280441 N30.20 doing well, follow-up 1 year sooner [id number] AMAURI DEL CID PA-C [place] [address] [place] [address] 12/03/2024 10:04:59 12/03/2024 10:49:05 History of malignant neoplasm of skin 729422834 Z85.828 - 2013- No evidence of recurrence today- Call with any worrisome lesions or if treated lesions return- Return at regular intervals for skin exam as recommende d Multiple b enign melanocytic nevi 532438730 D22.5 - Benign moles seen on exam [...] changing or worrisome lesions Seborrheic keratosis 394 369436 L82.1 - Benign overgrowth s of skin - Hereditary Senile angioma 4035874 I 78.1 - Benign blood vessel growths - Hereditary Solar lentigo 03328274 L 81.4 - Benign brown spots - Sun-induce d Actinic keratosis 386884 007 L57.0 Actinic keratoses are precancero us lesions that may progress to squamous cell carcinoma if untreated. UV light and genetics may increase risk. Treated lesions should blister, scab over, and heal within a few weeks. If treated lesion(s) does not resolve within 1-2 months, patient agrees to follow up for re-evaluat ion. Inflamed s eborrheic keratosis 166322370 L82.0 L53.8 Counseled on benign nature. Pt [...] Member ID Hanson Member ID Guarantor Name 07/05/2025 1 [facility] (MEDICARE REPLACEMENT/A DVANTAGE - PPO) [id number] Asia Estrella [id number] Asia Estrella Notes Date Note Type Note [...] for 6 weeks postop. LUCA DOMINGUEZ MD [facility] [place], [address], [facility] 01/10/2023 15:51:38 10/19/2023 text/html Patient is [...] from a urologic standpoint. LUCA DOMINGUEZ [facility] [place], [address], [facility] 10/23/2023 14:22:03 10/31/2024 text/html Patient is [...] continue on current therapy. LUCA DOMINGUEZ MD [address] [place] [address], [phone], [facility] 10/31/2024 13:30:16 12/03/2024 text/html ROS as noted in the HPI Patient requests a full body skin exam. 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
== END 2025-07-15 23:59 ==
LOC: LAB.DROPOF 07-16 09:45
PROVIDERS: PCP Internal Medicine; Visit Provider Internal Medicine
DX: E78.5 Hyperlipidemia, unspecified (principal); I10 Essential (primary) hypertension; E83.52 Hypercalcemia; M81.0 Age-related osteoporosis without current pathological fracture
CPT/HCPCS: 80053; 80061; 83970

== ENCOUNTER 2025-08-13 14:02 | Outpatient (CLI) | payer MEDICARE, SELFPAY ==
--- OUTSIDE RECORDS SUMMARY | 2025-07-04 06:19 | XMS_ITS | Encounter Summary ---
Author Organization [email or web address] ([place], [place], [place], [place], [place]) Address [address] [place] [address] Care Team Providers Care Appraisal Manager Name Role Phone Clemente Levine MD Primary Care Provider [phone] Reason for Visit * Reason Comments Fall Encounter Details Date Type Department Care Team (Late st Contact Info) Description 07/04/2025 7:19 AM EDT - 07/04/2025 11:38 AM EDT Emergency [facility] Emergency Department [address] [place] [address] Mike Lugo, [address] [place] [address] Laceration of scalp, initial encounter (Primary Dx) Discharge Disposition: Home or Self Care Social History Tobacco Use Types Packs/Day Years Used Date Smoking Tobacco: Never Assessed Comments Unknown Sex and Gender Information Value Date Recorded Sex Assigned at Not on file Legal Sex Female 1:10 PM CDT Gender Identity Not on file Sexual Orientation Not on file documented as of this encounter Last Filed Vital Signs Vital Sign Reading Time Taken Comments Blood Pressure 149/89 07/04/2025 11:05 AM EDT Pulse 68 07/04/2025 11:05 AM EDT Temperature 36.8 C (98.2 F) 07/04/2025 7:26 AM EDT Respiratory Rate 16 07/04/2025 7:26 AM EDT Oxygen Saturation 96% 07/04/2025 11:05 AM EDT Inhaled Oxygen Concentration - - Weight 73.9 kg (163 lb) 07/04/2025 7:26 AM EDT Height 160 cm (5' 3 ) 07/04/2025 7:26 AM EDT Body Mass Index 28.87 07/04/2025 7:26 AM EDT documented in this encounter Discharge Instructions * Attachments The following attachments cannot be sent through Care Everywhere. * Sutures [place] or Adhesive Wound Closure (Sami) documented in this encounter ED Notes * Mike Lugo, DO - 07/04/2025 8:13 AM EDT Subjective Chief Complaint / HPI: Asia Estrella is a 79 y.o. female who presents with c/o mechanical fall,tripped over a door threshold struck the back of her head, complains of headache no LOC no vomitingno vision changes, no neck pain, tetanus vaccine up-to-date. Sustained laceration. Nurses Notes reviewed and agree, including vitals, allergies, social history and prior medical history. REVIEW OF SYSTEMS: All systems reviewed and not pertinent unless noted. Review of Systems Past Medical History: Diagnosis Date Hypertension Allergies: Patient has no known allergies. No past surgical history on file. Social History Socioeconomic History Marital status: Spouse name: Not on file Number of children: Not on file Years of education: Not on file Highest education level: Not on file Occupational History Not on file Tobacco Use Smoking status: Not on file Smokeless tobacco: Not on file Substance and Sexual Activity Alcohol use: Not on file Drug use: Not on file Sexual activity: Not on file Other Topics Concern Not on file Social History Narrative Not on file Social Drivers of Health Financial Resource Strain: Not on file Food Insecurity: Not on file Transportation: Not on file Physical Activity: Not on file Social Connections: Unknown (06/27/2023) Received from [facility] Family and Community Support Help with Day-to-Day Activities: Not on file Lonely or Isolated: Not on file No family history on file. Objective Physical Exam: BP (!) 160/73 Pulse 68 Temp 98.2 ??F (36.8 ??C) (Oral) Resp 16 Ht 1.6 m (5' 3 ) Wt 73.9 kg (163 lb) SpO2 98% BMI 28.87 kg/m?? Physical Exam CONSTITUTIONAL: Well developed, nontoxic healthy-appearing 79-year-old female, VITAL SIGNS: per nursing, reviewed and noted SKIN: exposed skin with 3.4 cm left posterior scalp laceration EYES: Grossly EOMI, no icterus ENT: Normal voice. Moist mucous membranes RESPIRATORY: No increased work of breathing. No retractions. CARDIOVASCULAR: Extremities pink and warm. Good cap refill to extremities. GI: Abdomen without distention MUSCULOSKELETAL: Age-appropriate bulk and tone, moves all 4 extremities NEUROLOGIC: Alert, oriented x 3. No gross deficits. GCS 15. PSYCH: appropriate affect. : no bladder tenderness or distention, no CVA tenderness ED Course / Medical Decision Making:: No results found for this visit on 07/04/25 (from the past 24 hours). Radiology Results (last day) Procedure Component Value Units Date/Time CT brain without IV contrast [[id number]] Collected: 07/04/25917 Order Status: Completed Updated: 07/04/25921 Narrative: HEAD CT HISTORY: Fall COMPARISON: None TECHNIQUE: Multiple axial CT images were performed from the foramen magnum to the vertex without contrast. Coronal reformatted images were also obtained. This study was performed with techniques to keep radiation doses as low as reasonably achievable, (ALARA). Individualized dose reduction techniques using automated exposure control or adjustment of mA and/or kV according to the patient size were employed. FINDINGS: There is no evidence of intracranial hemorrhage or mass. The ventricular size is within normal limits. No abnormal extra-axial fluid collection is seen. There is no evidence of shift of the midline structures. Images of the sinuses reveal no evidence of mucosal thickening. No acute bony abnormality is seen on the bone window images. Impression: No acute intracranial abnormality. Images reviewed, interpreted, and dictated by James Diggs MD [facility] Initial impression of presenting illness: Chief Complaint / HPI: Asia Estrella is a 79 y.o. female who presents with c/o mechanical fall,tripped over a door threshold struck the back of her head, complains of headache no LOC no vomitingno vision changes, no neck pain, tetanus vaccine up-to-date. Sustained laceration. DDX: includes but is not limited to: Intracranial hemorrhage, skull fracture, concussion, laceration Patient arrives 186/81 afebrile nontachycardic sats 100% with vitals interpreted by myself. Pertinent features from physical exam: 3.4 cm laceration left posterior scalp. Initial diagnostic plan: CT head Results from initial plan were reviewed and interpreted by me revealing CT head no acute intracranial findings per radiologist no hemorrhage no shift no mass effect no skull fracture Diagnostic information from other sources: Family members at the bedside Results/clinical rationale were discussed with patient and family member Consultations/Discussion of results with other physicians: None Procedures LACERATION REPAIR: 3.4 cm laceration left posterior scalp Consent obtained, risks and benefits discussed, patient or healthcare surrogate elected to continue Sterile technique with saline irrigation 4 x 4's Field infiltration lidocaine 1% field infiltration 5 mL Closed with 10 bryce Dressing per nursing staff Tolerated well, no complications. ED course / Discussion: Medications lidocaine (XYLOCAINE) injection 1% (10 mLs other - see admin instructions/comments Given 07/04/25 0835) acetaminophen (TYLENOL) tablet 650 mg (650 mg oral Given 07/04/2533) Discharged in stable condition supportive care recommendations outpatient follow-up for staple removal in a week to 10 days. ----- Assessment: 1. Laceration of scalp, initial encounter Plan: Discharge Mike Lugo DO 07/04/25 1128 * Meri Johnson - 07/04/2025 7:24 AM EDT Pt arrived to ED via EMS with complaints of mechanical fall from standing. No LOC/blood thinners. Pt hit the back of her head on a rock post. Laceration noted documented in this encounter Plan of Treatment Not on file documented as of this encounter Procedures Procedure Name Priority Date/Time Associated Diagnosis Comments CT BRAIN WITHOUT IV CONTRAST STAT 07/04/2025 9:06 AM EDT documented in this encounter Results * CT brain without IV contrast (07/04/2025 9:06 AM EDT) Anatomical Region Laterality Modality Brain, Head Computed Tomogra phy (CT) 07/04/2025 9:18 AM EDT Impressions 07/04/2025 9:20 AM EDT No acute intracranial abnormality. Images reviewed, interpreted, and dictated by James Diggs MD Narrative 07/04/2025 9:[address] HISTORY: Fall COMPARISON: None TECHNIQUE: Multiple axial CT images were performed from the foramen magnum to the vertex without contrast. Coronal reformatted images were also obtained. This study was performed with techniques to keep radiation doses as low as reasonably achievable, (ALARA). Individualized dose reduction techniques using automated exposure control or adjustment of mA and/or kV according to the patient size were employed. FINDINGS: There is no evidence of intracranial hemorrhage or mass. The ventricular size is within normal limits. No abnormal extra-axial fluid collection is seen. There is no evidence of shift of the midline structures. Images of the sinuses reveal no evidence of mucosal thickening. No acute bony abnormality is seen on the bone window images. Procedure Note James Diggs MD - 07/04/[address] HISTORY: Fall COMPARISON: None TECHNIQUE: Multiple axial CT images were performed from the foramen magnum to the vertex without contrast. Coronal reformatted images were also obtained. This study was performed with techniques to keep radiation doses as low as reasonably achievable, (ALARA). Individualized dose reduction techniques using automated exposure control or adjustment of mA and/or kV according to the patient size were employed. FINDINGS: There is no evidence of intracranial hemorrhage or mass. The ventricular size is within normal limits. No abnormal extra-axial fluid collection is seen. There is no evidence of shift of the midline structures. Images of the sinuses reveal no evidence of mucosal thickening. No acute bony abnormality is seen on the bone window images. IMPRESSION: No acute intracranial abnormality. Images reviewed, interpreted, and dictated by James Diggs MD Mike Lugo DO [facility] CT ORDERABLES Final Result documented in this encounter Visit Diagnoses Diagnosis Laceration of scalp, initial encounter- Primary documented in this encounter Administered Medications Inactive Administered Medications - up to 3 most recent administrations Medication Order MAR Action Action Date Dose Rate Site acetaminophen (TYLENOL) tablet 650 mg 650 mg Once, oral, On Carine 07/04/25 at 0815, For 1 dose, Recommended maximum dose of acetaminophen is 4000 mg from all sources in 24 hours Given 07/04/2025 8:33 AM EDT 650 mg lidocaine (XYLOCAINE) injection 1% 10 mL Once, other - see admin instructions/comments, On Carine 07/04/25 at 0755, For 1 dose, At bedside for laceration repair. Given 07/04/2025 8:35 AM EDT 10 mLs documented in this encounter Active and Recently Administered Medications Times are shown in EDT. Scheduled Medication Order 07/02/2025 07/03/2025 07/04/2025 acetaminophen (TYLENOL) tablet 650 mg (COMPLETED) 650 mg Once, oral, On Carine 07/04/25 at 0815, For 1 dose, Recommended maximum dose of acetaminophen is 4000 mg from all sources in 24 hours 0833 (Given - Provid er: Meri Johnson) lidocaine (XYLOCAINE) injection 1% (COMPLETED) 10 mL Once, other - see admin instructions/comments, On Carine 07/04/25 at 0755, For 1 dose, At bedside for laceration repair. 0835 (Given - Provid er: Meri Johnson) documented in this encounter Care Teams Appraisal Manager Relationship Specialty Start Date End Date Clemente Levine MD [address] [place] [address] [place] [address] PCP - General General Internal Medicine 07/04/25 documented as of this encounter
--- OUTSIDE RECORDS SUMMARY | 2025-08-13 14:08 | XMS_ITS | Clinical Summary ---
[facility] Organization [facility] Address [address] [place] [address] Care Team Providers Care Dairy Husbandry Teacher Name Role Phone Clemente Levine MD Primary Care Provider [phone] Allergies Active Allergy Reactions Criticality Noted Date [...] COPD Father 2006 after 18 mo in [place] Breast cancer Maternal Aunt Breast cancer Maternal [...] ZOSTER VACCINE (1 of 2) 1995 ANNUAL PHYSICAL 04/21/2017 HEPATITIS C SCREENING 04/21/2017 Pneumococcal Vaccine [...] Most Recently Relevant to Health Maintenance Insurance [facility] MEDICARE REPLACE Care Teams Dairy Husbandry Teacher Relationship Specialty Start Date End Date Clemente Levine MD [address] [place] [address] [place] [address] PCP - General Internal Medicine 04/21/17
--- OUTSIDE RECORDS SUMMARY | 2025-08-13 14:08 | XMS_ITS | Encounter Summary ---
Author Organization [employer] ([place], [place], [place], [place], [place]) Address [address] [place] [address] Care Team Providers Care Warehouse Incentive Selector Name Role Phone Clemente Levine MD Primary Care Provider [phone] Encounter Details Date Type Department Care Team [...] on filedocumented in this encounter Care Teams Warehouse Incentive Selector Relationship Specialty Start Date End Date Clemente Levine MD [address] [place] [address] [place] [phone] PCP - General General Internal Medicine 07/04/25 documented as of this encounter
--- OUTSIDE RECORDS SUMMARY | 2025-08-13 14:08 | XMS_ITS | Referral Summary ---
Author Organization [employer] ([place], [place], [place], [place], [place]) Address [address] [place] [address] Care Team Providers Care Hotel Assistant General Manager Name Role Phone Clemente Levine MD Primary Care Provider [phone] Encounters Date Type Department Care Team Description 07/04/2025 Travel 07/04/2025 7:19 AM EDT - 07/04/2025 11:38 AM EDT Emergency [facility] Emergency Department [address] [place] [address] Mike Lugo DO Laceration of scalp, [...] Result from Last 3 Months Insurance [place] [id number] [facility] MEDICARE ADVANTAGE Care Teams Hotel Assistant General Manager Relationship Specialty Start Date End Date Clemente Levine MD [address] [place] [address] [place] [address] PCP - General General Internal Medicine 07/04/25
--- OUTSIDE RECORDS SUMMARY | 2025-08-13 14:08 | XMS_ITS | Clinical Summary ---
Author Organization [employer] ([place], [place], [place], [place], [place]) [place] [address] Care Team Providers Care Chip Mixer Name Role Phone Clemente Levine MD Primary Care Provider [phone] Allergies No known active allergies Medications No known medications Encounters Date Type Department Care Team Description 07/04/2025 7:19 AM EDT - 07/04/2025 11:38 AM EDT Emergency [facility] Emergency Department [address] [place] [address] Mike Lugo DO Laceration of scalp, [...] Risk Screening 09/19/2024 Medicare IPPE (Welcome to [facility] [facility]) [id number] 09/19/2024 COVID-19 VACCINE ( - season) 2025 07/31/2021, 11/21/2020, 10/24/2020 Influenza Vaccine [...] from Last 3 Months Insurance [place] [id number] [facility] MEDICARE ADVANTAGE Care Teams Chip Mixer Relationship Specialty Start Date End Date Clemente Levine MD [address] [place] [address] [place] [address] PCP - General General Internal Medicine 07/04/25
[2025-08-13 15:11] LABS: Albumin Level 4.7 g/dl (3.5-5.0); Anion Gap 13.2 mEq/L (5-15); Blood Urea Nitrogen 17 mg/dl (7-17); Calcium 10.8 mg/dl (8.4-10.2); Carbon Dioxide 24 mmol/L (22.0-30.0); Chloride 101 mmol/L (98-107); Creatinine,Serum 0.80 mg/dl (0.52-1.04); Estimated Glomerular Filt Rate 69 ml/min (>60); GFR (African American) 84 ML/MIN (>60); Glucose 91 mg/dl (74-100); Phosphorous 2.8 mg/dl (2.5-4.5); Potassium 3.2 mmoL/L (3.5-5.1); Sodium 135 mmol/L (136-145)
[2025-08-13 15:21] LABS: Free T4 (Free Thyroxine) 1.34 ng/dl (0.78-2.19)
[2025-08-13 15:30] LABS: 25-OH Vitamin D, Total 42.8 ng/mL (30-100)
[2025-08-13 15:43] LABS: Thyroid Stimulating Hormone 0.83 uIU/mL (0.465-4.68)
[2025-08-14 17:11] LABS: Calcium, Ionized 5.6 mg/dL (4.5-5.6)
== END 2025-08-13 23:59 | disposition home or self-care (01) ==
LOC: LAB 14:04
PROVIDERS: PCP Internal Medicine; Visit Provider Student in an Organized Health Care Education/Training Program
DX: R79.89 Other specified abnormal findings of blood chemistry (principal); E83.52 Hypercalcemia
CPT/HCPCS: 36415; 80069; 82306; 82330; 83970; 84439; 84443

== ENCOUNTER → 2025-09-04 08:45 | Outpatient (CLI) | payer MEDICARE, SELFPAY ==
--- NOTE | 2025-09-04 09:00 | XR_ITS ---
FINAL REPORT CLINICAL HISTORY: osteoporosis COMPARISON: None FINDINGS: Using L1-4, the bone mineral density of the spine is 0.837 g/cm2, corresponding to T-score of -1.9. Using the left hip, the bone mineral density of the femoral neck is 0.628 g/cm2, corresponding to a T-score of -2.6. Using the right hip, the bone mineral density of the femoral neck is 0.597 g/cm2, corresponding to a T-score of -2.3. Using the left forearm, the bone mineral density of the mid is 0.343 g/cm?, corresponding to a T-score of -4.8. NOTE: T-score: Standard deviation compared with peak bone mass of young adult mean. *Following the recommendations of the International Society of Bone densitometry, classification of hip BMD is based on the lower of two T-scores; total hip or femoral neck. IMPRESSION: Diminished bone mineral density of the left hip and left forearm, consistent with osteoporosis. Diminished bone mineral density of the lumbar spine and right hip consistent with osteopenia. Reviewed, Interpreted and Dictated by Pramod [place] MD Transcribed by Earnestine Felipe Authenticated and [facility]
--- OUTSIDE RECORDS SUMMARY | 2025-09-04 09:09 | XMS_ITS | Clinical Summary ---
Author Organization [employer] ([place], [place], [place], [place], [place]) Address [address] [place] [address] Care Team Providers Care College Teacher Name Role Phone Clemente Levine MD Primary Care Provider [phone] Allergies No known active allergies Medications No known medications Encounters Date Type Department Care Team Description 07/04/2025 7:19 AM EDT - 07/04/2025 11:38 AM EDT Emergency [facility] Emergency Department [address] [place] [phone] Mike Lugo DO Laceration of scalp, [...] Risk Screening 09/19/2024 Medicare IPPE (Welcome to [place] mady) [id number] 09/19/2024 COVID-19 VACCINE ( - [...] from Last 3 Months Insurance [place] [id number] [facility] MEDICARE ADVANTAGE Care Teams College Teacher Relationship Specialty Start Date End Date Clemente Levine MD [address] [place] [address] [place] [address] PCP - General General Internal Medicine 07/04/25
--- OUTSIDE RECORDS SUMMARY | 2025-09-04 09:09 | XMS_ITS | Data Portability ---
Author Organization [facility] SHANTAL De GuzmanS CROSS JUNCTION CLOSED Address [address] [facility] [address] [place] [address] Care Team Providers Care Silvering Department Supervisor Name Role Phone INES BATISTA Primary Care Provider [phone] Assessment Encounter Date Assessment Date Assessment LastModified [...] prepped and draped in standard manner. An 18-Mohawk urethral catheter was placed. The bladder neck [...] Lab urinalysi s panel, auto 2022 023 [email or web address] [facility], [address] [place] [address], [address], [place], [address], 01/10/2023 15:51:10 Referral None recorded. Procedures None recorded. Surgeries None recorded. Imaging None recorded. Medication Orders Macrobid 100 mg capsule 2024 025 [facility], [address], [address], 10/31/2024 13:29:34 Macrobid 100 mg capsule 2023 024 [facility], [address], [address], 10/23/2023 14:21:37 Patient TargetsNo targets recorded. Patient InstructionsNo instructions recorded. Reason for Referral None Reported. Results Created Date Observation Date Name Description Value Unit Range Abnormal Flag Note LastModifiedBy Organization Detail LastModifiedTime 01/11/20 23 01/10/2023 urina lysis panel , auto Unknown Analyte Clean Catch Not Available [facility] [address], [place], [address], 01/10/2023 15:02:58 01/11/20 23 01/10/2023 urina lysis panel , auto Unknown Analyte Yellow Not Available [facility] With [address], [place], [address], 01/10/2023 15:02:58 01/11/20 23 01/10/2023 urina lysis panel , auto Unknown Analyte Clear Not Available [facility] [address], [place], [address], 01/10/2023 15:02:58 01/11/20 23 01/10/2023 urina lysis panel , auto Unknown Analyte 1.020 Not Available [facility] [address], [place], [address], 01/10/2023 15:02:58 01/11/20 23 01/10/2023 urina lysis panel , auto Unknown Analyte 5.0 Not Available [facility] [address], [place], [address], 01/10/2023 15:02:58 01/11/20 23 01/10/2023 urina lysis panel , auto Unknown Analyte 25 Yarelis/ul Trace Not Available [facility] [address], [place], [address], 01/10/2023 15:02:58 01/11/20 23 01/10/2023 urina lysis panel , auto Unknown Analyte Negati ve Not Available [facility] [address], [place], [address], 01/10/2023 15:02:58 01/11/20 23 01/10/2023 urina lysis panel , auto Unknown Analyte Negati ve Not Available [facility] [address], [place], [address], 01/10/2023 15:02:58 01/11/20 23 01/10/2023 urina lysis panel , auto Unknown Analyte Normal Not Available [facility] [address], [place], [address], 01/10/2023 15:02:58 01/11/20 23 01/10/2023 urina lysis panel , auto Unknown Analyte Negati ve Not Available [facility] [address], [place], [address], 01/10/2023 15:02:58 01/11/20 23 01/10/2023 urina lysis panel , auto Unknown Analyte Normal Not Available [facility] [address], [place], [address], 01/10/2023 15:02:58 01/11/20 23 01/10/2023 urina lysis panel , auto Unknown Analyte Negati ve Not Available [facility] [address], [place], [address], 01/10/2023 15:02:58 01/11/20 23 01/10/2023 urina lysis panel , auto Unknown Analyte Negati ve Not Available [facility] [address] [facility] [address], [place], [address], 01/10/2023 15:02:58 06/09/20 23 06/09/2023 MAMMO , scree adelina, tomos ynthe sis, bilat eral, w/ CAD Lexing ton [facility] [address] [place] [address] Viktoriya dumont Name: ASIA dumont : 1944 [...] from the 3D datase t using [employer] re. The study was read with the [...] [place] on 023 2:52 PM [email or web address] [facility] [address] [place], [address], 06/09/2023 15:18:18 Result Notes Documentation Provider Name and Address Organization Details Recorded Time Mammo, Screening, Tomosynthesis, Bilateral, W/ Cad : [facility] [address] [place] [address] Patient Name: ASIA ESTRELLA Patient : 1945 Age: 77 years Patient Ordering Provider: INES BATISTA JR EXAM DATE: 06/09/2023 EXAM: MG SCREENING KATHIE MAMMOGRAM INDICATION: Routine screening. PROCEDURE: Multislice imaging of both breasts was performed in standard projections using [employer] tomosynthesis equipment (3D mammography). 2D images [...] patient. Interpreted By: Lam [place] Edu Buchanan [facility] 06/09/2023 15:18:18 Problems Name Problem SNOMED Code Status Onset Date Resolution Date Notes Provider Name and Address Organization Details Recorded Time Actinic keratosis 782236694 Active 025 Chetna Ramirez [facility] 5 10:37:56 Inflamed seborrheic keratosis 680835981 Active 025 Chetna Ramirez [facility] 5 10:39:46 Problem Notes Documentation Provider Name and Address Organization Details Recorded Time Urologist Consult Note : [facility] [address] [facility] [address]KJQEOHS, Mara B (id #[id number], : 1945) [facility] [address] [place] [address] Encounter Summary - Progress Note Date Printed: [...] received this fax in error, please visit [email or web address] to notify the sender and confirm that the information will be destroyed. If you do not have internet access, please call to notify the sender and confirm that the information will be destroyed. Thank you for your attention and cooperation. [ID:[id number]] Patient Asia Estrella (77yo, F) #[id number] 1945 Patient Demographics: Address [address] [place] [address] [place] [address] Encounter Notes: Encounter Reason/DateNone recorded 01/10/2023 - 03:15PM - EDMUND WORKMAN [facility] History of Present IllnessPatient [...] 6 weeks postop. Review of SystemsNone recorded [id number] 15:02 Ht: 5 ft 3 in Wt: [...] Plan1. Female stress incontinence-As above follow-up 6 uumycrZ82.3: Stress incontinence (female) (male) URINALYSIS PANEL, AUTO [...] Office LUCA DOMINGUEZ MD for RECHECK at [facility] on 01/26/2023 at 03:00 PM Patient Medical History: Allergies List Allergies not reviewed (last reviewed 12/25/2021) NKDA Medications Reviewed Medications NameDate Source vvzyemexe81/26/21 entered Felicity Majors estradioL 0.01% (0.1 mg/gram) vaginal creamINSERT 0.5 GRAMS INTO THE VAGINA 2 TIMES A WEEK09/06/22 filled surescripts fluocinonide 0.05 % topical solutionAPPLY TOPICALLY TO SCALP EVERY DAY09/06/22 filled surescripts hydroCHLOROthiazide 12.5 mg tabletTAKE 1 TABLET BY MOUTH ONCE DAILY12/20/22 filled surescripts ibandronate 150 mg henvih61/10/17 filled [facility] levoFLOXacin 500 mg tabletTAKE 1 TABLET BY MOUTH EVERY 24 HOURS FOR 10 DAYS11/03/21 filled surescripts nitrofurantoin monohydrate/macrocrystals 100 mg capsuleTAKE 1 CAPSULE BY MOUTH ONCE DAILY DIRECTED FOR 90 DAYS12/20/22 filled surescripts ofloxacin 0.3 % eye drops02/01/18 filled [facility] phenazopyridine 200 mg /09/16 filled [facility] Premarin 0.625 mg/gram vaginal creamInsert [...] filled surescripts Vaqta (PF) 50 unit/mL intramuscular /12/18 filled [facility] Family HistoryFamily History not reviewed (last reviewed 10/29/2022) Past Medical HistoryPast Medical History not reviewed (last reviewed 06/15/2021) Vaccine HistoryNone recorded Electronically Signed by: LUCA DOMINGUEZ MD Deisy Geller [facility] 01/10/2023 16:11:35 Progress Note : [facility] [address] [place] [address], [facility] [address]XQWWTIE, Asia Nicole (id #[id number], : 1945) [address] [place] [address] Encounter Summary - Progress Note Date Printed: [...] received this fax in error, please visit [email or web address] to notify the sender and confirm that the information will be destroyed. If you do not have internet access, please call to notify the sender and confirm that the information will be destroyed. Thank you for your attention and cooperation. [ID:[id number]] Patient Asia Estrella (78yo, F) #[id number] 1945 Patient Demographics: Address [address] [facility] [place] [address] Encounter Notes: Encounter Reason/DateNone recorded 10/19/2023 - 02:15PM - [facility] History of Present [...] in the extremities, and no neck pain. [id number] 13:39 Ht: 5 ft 3 in Wt: 161 lbs BMI: 28.5 Results/InterpretationsNone recorded Physical ExamNone recorded Procedure DocumentationNone recorded Assessment and Plan1. Chronic infective cystitis-Lymph nodeCurrently doing well, follow-up 1 year kcgtmnE64.20: Other chronic cystitis without hematuria Macrobid 100 mg capsule - To be submitted on or around 10/23/2023 Take 1 capsule(s) every day by oral route as directed for 90 days. Qty: (90) capsule Refills: 3 Pharmacy: [facility] Return to Office LUCA DOMINGUEZ MD for RECHECK at [facility] on 10/22/2024 at 10:45 AM Patient Medical History: Allergies List Reviewed Allergies NKDA Medications Reviewed Medications NameDate Source anrjrtkvh22/26/21 entered Felicity Alvarez estradioL 0.01% (0.1 mg/gram) vaginal creamINSERT 0.5 GRAMS INTO THE VAGINA 2 TIMES A WEEK07/14/23 filled surescripts fluocinonide 0.05 % topical solutionAPPLY TOPICALLY TO SCALP EVERY DAY09/06/22 filled surescripts hydroCHLOROthiazide 12.5 mg tabletTAKE 1 TABLET BY MOUTH ONCE DAILY10/05/23 filled surescripts ibandronate 150 mg rmcifi21/10/17 filled [facility] levoFLOXacin 500 mg tabletTAKE 1 TABLET BY MOUTH EVERY 24 HOURS FOR 10 DAYS11/03/21 filled surescripts Macrobid 100 mg capsuleTake 1 capsule(s) every day by oral route as directed for 90 days.10/23/23 prescribed LUCA DOMINGUEZ MD ofloxacin 0.3 % eye drops02/01/18 filled [facility] phenazopyridine 200 mg uwshuc07/09/16 filled [facility] Premarin 0.625 mg/gram vaginal creamInsert [...] filled surescripts Vaqta (PF) 50 unit/mL intramuscular xoiejbwpyk15/12/18 filled [facility] Family HistoryFamily History not reviewed (last reviewed 10/29/2022) Past Medical HistoryPast Medical History not reviewed (last reviewed 06/15/2021) Vaccine HistoryNone recorded Electronically Signed by: LUCA DOMINGUEZ MD ANA Lew [facility] 10/26/2023 15:55:03 Progress Note : [facility] [address] [facility] [address]IAEBMTC, Mara B (id #[id number], : 1945) [facility] [address] [place] [address] Encounter Summary - Progress Note Date Printed: [...] received this fax in error, please visit [email or web address] to notify the sender and confirm that the information will be destroyed. If you do not have internet access, please call to notify the sender and confirm that the information will be destroyed. Thank you for your attention and cooperation. [ID:[id number]] Patient Asia Estrella (79yo, F) #[id number] 1945 Patient Demographics: Address [address] [place] [address] Encounter Notes: Encounter Reason/Date yearly 10/31/2024 - 01:15PM - EDMUND [facility] History of Present IllnessPatient [...] Chronic infective cystitis-doing well, follow-up 1 year brxrkyD78.20: Other chronic cystitis without hematuria Macrobid 100 mg capsule - Take 1 capsule(s) every day by oral route as directed for 90 days. Qty: (90) capsule Refills: 3 Pharmacy: [facility] Return to Office AMAURI DEL CID PA-C for RE ESTABLISH DAK at [facility] on 12/03/2024 at 10:20 AM LUCA DOMINGUEZ MD for RECHECK at [facility] on 11/01/2025 at [...] 90 days.10/31/24 prescribed LUCA DOMINGUEZ MD [employer] PBAYQRAD90/12/25 entered Isabelle Felipe Bubzmidzmbww22/12/25 entered Isabelle Felipe Family HistoryFamily History not reviewed (last reviewed 10/29/2022) Past Medical HistoryPast Medical History not reviewed (last reviewed 06/15/2021) Vaccine HistoryNone recorded Electronically Signed by: LUCA DOMINGUEZ MD ANA Molina [facility] 10/31/2024 13:32:44 Progress Note : [facility] [address] [facility] [address]KBEHNWT, Mara B (id #[id number], : 1945) [facility] [address] [place] [address] Date: 12/04/2024RE: Asai Estrella, : 1945, PT ID #[id number] Koch MD, I would like to thank you for referring Asia Estrella to our practice for consultation and evaluation. I have enclosed a copy of the office evaluation for your records. Sincerely, Electronically Signed by: AMAURI DEL CID PA-C, Ivana Reason/Date Full Skin Check H/O Skin Cancer 12/03/2024 - 10:20AM - [facility] History of Present IllnessPatient requests a full [...] deltoid x1, L forehead x3, L elbow d5Wgjircimy DocumentationDAK - Cryo AK:Destruction Premalignant Lesions: Patient [...] at regular intervals for skin exam as mvqhjoehhtmW35.828: Personal history of other malignant neoplasm of [...] for appointment with any changing or worrisome tyylwkzE75.5: Melanocytic nevi of trunk 3. Seborrheic keratosis- Self-Limited/Minor - Benign overgrowths of skin CecafygzfkR23.1: Other seborrheic keratosis 4. Senile angioma- Self-Limited/Minor - Benign blood vessel growths XniiwnbvjoG43.1: Nevus, non-neoplastic 5. Solar lentigo- Self-Limited/Minor - Benign brown spots Sun-akuwwdeY40.4: Other melanin hyperpigmentation 6. Actinic keratosis-Actinic keratoses [...] Office LUCA DOMINGUEZ MD for RECHECK at [facility] on 11/01/2025 at 10:00 AM AMAURI DEL CID PA-C for FOLLOW UP DAK at [facility] on 12/10/2025 at 11:10 AM [facility] 08:15:51 Procedures Surgical History Date Name Laterality Status Provider Name and Address Organization Details Recorded Time 5 [facility] - Cryo AK completed [facility] 12/03/2024 10:41:44 5 [facility] - Destruction BN Lesions completed [facility] 12/03/2024 10:42:52 Orthopedic Surgery completed Hugo Yee [facility] 09/14/2017 15:46:08 Imaging Results None recorded. Procedure [...] Updated DateTime 10/19/2023 160.02 cm 28.5 kg/m2 70614.37 g Ale Hopkins [facility] 10/19/2023 13:39:27 Date Recorded Body height Body mass index (BMI) Body weight Provider Name and Address Organization Details Last Updated DateTime 10/31/2024 160.02 cm 28.9 kg/m2 10624.56 g Isabelle Matteo [facility] 10/31/2024 12:59:59 Date Recorded Body height Body mass index (BMI) Body weight Provider Name and Address Organization Details Last Updated DateTime 01/10/2023 160.02 cm 28.5 kg/m2 16960.37 g Kenia Wu [facility] 01/10/2023 15:02:48 Social History Question Answer Notes LastModified by Organizat ion Details LastModified Time Tobacco Smoking Status Never Smoker [facility] 09/14/2017 15:45:58 Accident Related Injury Yes [email or web address] Information not available 10/19/2017 How Much Tobacco Do You Chew? None slbhjwiy57 Information not available 06/13/2020 Which Of Your Hands Is Dominant? Right meevik05 Information not available 10/19/2017 Which Hand Is Involved? Right jdrysw84 Information not available 10/19/2017 When Are Your Symptoms The Worst? Night Day Neither Neither umjjlb18 Information not available 10/19/2017 Date Of Injury: DOI 09-10-2017 yzvnov39 Information not available 10/19/2017 Have You Been Treated For This Problem Before? No lnoaej85 Information not available 10/19/2017 Will This Be Filed As Workers' Compensation? No vvsynl25 Information not available 10/19/2017 What Was The Date Of Your Most Recent Tobacco Screening? 02/06/2018 Information not available 11/06/2019 How Much Tobacco Do You Smoke? No mvarqmfd69 Information not available 06/13/2020 Has Tobacco Cessation Counseling Been Provided? No [email or web address] Information not available 06/15/2021 Have You Recently Traveled Abroad? No [email or web address] Information not available 06/15/2021 Work Related Injury? No Information not available 10/19/2017 Sex: Unknown Functional Status Question Answer Note LastModified by Organizat ion Details LastModified Time Do you use any illicit or recreational drugs? No owugiqtd57 Information not available 06/15/2021 Do you or have you ever used any other forms of tobacco or nicotine? No mesmqbmd35 Information not available 06/15/2021 What is your level of alcohol consumption? None rkdehxpf80 Information not available 06/15/2021 Are you currently employed? No aybclu54 Information not available 10/19/2017 What is your occupation? Retired ontens21 Information not available 10/19/2017 Mental Status None recorded. Family History Relationship Description Onset Age of this Age Resolved Age Notes LastModified by Organization Details LastModified Time Father Basal cell carcinoma of skin [email or web address] Not available 12/03 10:20:45 Medical History Condition Response Allergies/Hayfever N Gout N Anxiety/Depression N Other N Squamous Cell Carcinoma Y Thyroid Disease N Heart Conditions N Kidney Stones N Hernia N Migraines N COPD N Glaucoma N Pneumonia N Skin Problems N Immune System Disorder N Anesthesia Complications N Heart Attack ([place]) N Mental Illness N Neurological Problems N [...] ICD10 Code Diagnosis IMO Codes Diagnosis Note [id number] LUCA DOMINGUEZ MD SURGERY SCHEDULE [address] [place] [address] 06/29/2017 10:12:13 06/29/2017 10:16:00 [id number] SHARMILA ZAPIEN MD [facility] [address] [address] 09/14/2017 14:31:23 09/20/2017 08:13:23 Closed fracture of upper end of humerus 96051247 S42.201A Ms Estrella has a non displaced right proximal humerus fractureI recommend continued protection with the shoulder immobilize rI recommend she perform active range of motion of the elbow and wristI asked her to return to see me in several weeks for follow up xrays Fracture o f phalanx of finger 08207333 S62.656A Ms Estrella has a concommita nt injury to the hand as well. I recommend continued protection of the small finger iam taping to the ring finger or continuati on of splint per her preference . [id number] SHARMILA ZAPIEN MD [facility] [address] [address] 09/21/2017 12:53:03 09/21/2017 14:20:00 Closed fracture of upper end of humerus 34706234 S42.201A Ms Estrella has a non displaced right proximal humerus fractureI recommend continued protection with the shoulder immobilize rI recommend she perform active range of motion of the elbow and wristI asked her to return to see me in several weeks for follow up xrays and progressio n to formal PT Fracture o f phalanx of finger 83528546 S62.656A Ms Estrella has fractures of the right small finger which are intra-cathryn cular I recommend consultati on with hand surgery [id number] DAYANARA KOCH MD [facility] [address] [place] [address] 09/21/2017 13:49:51 09/21/2017 14:33:44 Fracture of proximal phalanx of finger 826374610 S62.616A I recommende d closed treatment for now. I will see her back in 2 weeksfor x-rays out of cast [id number] SHARMILA ZAPIEN MD [facility] [address] [place] [address] 10/05/2017 13:47:55 10/10/2017 08:32:20 Closed fracture of upper end of humerus 82638551 S42.201A Ms Estrella has a healing proximal humerus fractureI recommend continued protection of the fracture and formal physical therapy to help with her passive motion. [id number] DAYANARA KOCH MD [facility] [address] [place] [address] 10/05/2017 11:16:45 10/05/2017 14:06:44 Fracture of proximal phalanx of finger 722114438 S62.616A P1 fracture/P 2 base fracture. Splint that she can remove for shower, range of motion unaffected joints, follow-up 2 more weeks for x-rays out of splint. [id number] DAYANARA KOCH MD [facility] [address] [place] [address] 10/19/2017 09:34:28 10/19/2017 10:26:15 Fracture of proximal phalanx of finger 503133789 S62.616A 4 weeks postop, fracture healed, discontinu e splint, discontinu e Coban, recommend range of motion and strengthen ing exercises [id number] SHARMILA ZAPIEN MD [facility] [address] [address] 11/02/2017 13:24:47 11/21/2017 07:29:33 Closed fracture of upper end of humerus 04409521 S42.201A Ms Estrella has a healing proximal humerus fractureI recommend continued protection of the fracture and formal physical therapy to help with her motion. She is to return to see me in 4 weeks to check her progressio n of motion and function. I do not anticipate she will need further xrays at that time. [id number] DAYANARA KOCH MD [facility] [address] [place] [address] 11/14/2017 15:38:54 11/14/2017 16:20:13 Fracture of proximal phalanx of finger 995046792 S62.616A Continue range of motion exercises and strengthen ing, she is now about 9 weeks out, it is a little slow recovering however she is making good progress now. Follow-up 6 weeks. [id number] SHARMILA ZAPIEN MD [facility] [address] [place] [address] 12/07/2017 13:16:01 12/07/2017 17:34:33 Closed fracture of upper end of humerus 84835045 S42.201A Ms Estrella has clinically and radiograph [...] need further physical therapy for the shoulder. [id number] DAYANARA KOCH MD [facility] [address] [place] [address] 12/26/2017 13:29:49 12/26/2017 17:45:50 Fracture of proximal phalanx of finger 288249313 S62.616A Doing great, full use, continue therapy 3-4 weeks, follow-up as needed. [id number] SHARMILA ZAPIEN MD [facility] [address] [address] 02/06/2018 10:13:12 02/07/2018 08:00:48 Closed fracture of upper end of humerus 53556153 S42.201A Ms Estrella has clinically and radiograph ically healed her proximal humerus fractureSh e returned to see me today to confirm adequate restoratio n of motion and function. She is doing well at this point and I asked her to progress with activity as tolerated and return to see me as needed. [id number] LUCA DOMINGUEZ MD SURGERY SCHEDULE [address] [place] [address] 02/28/2019 06:52:52 02/28/2019 06:58:10 [id number] LUCA DOMINGUEZ MD [facility] [address] [facility] [address] [address] [address] 11/27/2019 12:59:16 11/27/2019 14:15:57 Urinary tract infectious disease 31359673 N39.0 Chronic in fective cystitis 003919578 N30.20 she will resume Macrodanti n daily at bedtime follow-up 6 months [id number] LUCA DOMINGUEZ MD [facility] [address] [place] [address] 06/13/2020 10:49:11 06/13/2020 11:41:26 Urinary tract infectious disease 79352237 N39.0 as above follow-up 6 months if her urine is acceptable Chronic in fective cystitis 052761175 N30.20 she will resume Macrodanti n daily at bedtime follow-up 6 months [id number] LUCA DOMINGUEZ MD [facility] [address] [place] [address] 0 07/30/2020 13:10:45 07/30/2020 14:38:27 Chronic cystitis [id number] N30.20 plan as above. [id number] LUCA DOMINGUEZ MD [facility] [address] [place] [address] 0 12/12/2020 09:59:12 12/12/2020 10:40:21 Urinary tract infectious disease 56765412 N39.0 as above follow-up 6 months if her urine is acceptable Chronic in fective cystitis 275170028 N30.20 Doing well currently Atrophic vaginitis 84794 000 N95.2 [id number] MD [facility] [address],[place] [address] 06/15/2021 10:42:12 06/15/2021 11:09:32 Chronic infective cystitis 604343293 N30.20 Doing well currently, follow-up 6 months Atrophic vaginitis 45243 000 N95.2 continue Estrace [id number] LUCA DOMINGUEZ MD [facility] [address] [place], [place] [address] 10/28/2021 09:49:45 10/28/2021 09:50:31 [id number] LUCA DOMINGUEZ MD [facility] [address] [place] [address] 12/25/2021 08:48:48 12/25/2021 09:35:58 Chronic infective cystitis 647565414 N30.20 Doing well currently, follow-up 6 months Atrophic vaginitis 75636 000 N95.2 continue Estrace [id number] MD [facility] [address],[place] [address] 07/16/2022 10:54:45 07/20/2022 10:15:07 Acute urinary tract infection [id number] N39.0 Plan as above Female uri nary stress incontinence 70581132 N39.3 As above [id number] LUCA DOMINGUEZ MD [facility] [address] [place] [address] 10/29/2022 09:43:34 10/29/2022 15:32:37 Female urinary stress incontinence 69268179 N39.3 As aboveWe will arrange for suburethra l sling TOT Chronic in fective cystitis 409588806 N30.20 Currently doing well [id number] LUCA DOMINGUEZ MD SURGERY SCHEDULE [address] [place] [address] 12/15/2022 08:28:19 12/15/2022 08:29:36 [id number] MD [facility] [address] [place] [id number] 01/10/2023 14:51:40 01/10/2023 16:59:00 Female urinary stress incontinence 38365755 N39.3 As above follow-up 6 months Chronic in fective cystitis 982923507 N30.20 Currently doing well [id number] MD [facility] [address] [address] 10/19/2023 13:03:50 10/19/2023 15:22:00 Chronic infective cystitis 389132609 N30.20 Lymph nodeCurren tly doing well, follow-up 1 year sooner [id number] LUCA DOMINGUEZ MD [facility] [address] [place] [address] 10/31/2024 12:41:12 10/31/2024 13:29:53 Chronic infective cystitis 670577692 N30.20 doing well, follow-up 1 year sooner [id number] AMAURI DEL CID PA-C [place] [address] [place] [address] 12/03/2024 10:04:59 12/03/2024 10:49:05 History of malignant neoplasm of skin 618261797 Z85.828 - 2013- No evidence of recurrence today- Call with any worrisome lesions or if treated lesions return- Return at regular intervals for skin exam as recommende d Multiple b enign melanocytic nevi [id number] D22.5 - Benign moles seen on exam [...] changing or worrisome lesions Seborrheic keratosis 394 569913 L82.1 - Benign overgrowth s of skin - Hereditary Senile angioma 0998070 I 78.1 - Benign blood vessel growths - Hereditary Solar lentigo 36727316 L 81.4 - Benign brown spots - Sun-induce d Actinic keratosis 049132 007 L57.0 Actinic keratoses are precancero us lesions that may progress to squamous cell carcinoma if untreated. UV light and genetics may increase risk. Treated lesions should blister, scab over, and heal within a few weeks. If treated lesion(s) does not resolve within 1-2 months, patient agrees to follow up for re-evaluat ion. Inflamed s eborrheic keratosis [id number] L82.0 L53.8 Counseled on benign nature. Pt [...] Hanson Member ID Guarantor Name 07/05/2025 1 [facility] (MEDICARE REPLACEMENT/A DVANTAGE - PPO) [id number] Asia Estrella [id number] Asia Estrella Notes Date Note Type Note [...] for 6 weeks postop. LUCA DOMINGUEZ MD [facility] [place], [address], [facility] 01/10/2023 15:51:38 10/19/2023 text/html Patient [...] from a urologic standpoint. LUCA [facility] [place], [address], [facility] 10/23/2023 14:22:03 10/31/2024 text/html Patient [...] continue on current therapy. LUCA DOMINGUEZ MD [address] [place] [address], [phone], [facility] 10/31/2024 13:30:16 12/03/2024 text/html ROS as noted in the HPI Patient requests a full body skin exam. 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
--- OUTSIDE RECORDS SUMMARY | 2025-09-04 09:09 | XMS_ITS | Referral Summary ---
Author Organization [employer] ([place], [place], [place], [place], [place]) Address [address] [place] [address] Care Team Providers Care Student Support Counselor Name Role Phone Clemente Levine MD Primary Care Provider [phone] Encounters Date Type Department Care Team Description 07/04/2025 Travel 07/04/2025 7:19 AM EDT - 07/04/2025 11:38 AM EDT Emergency [facility] Emergency Department [address] [place] [address] Mike Lugo DO [employer] [...] from Last 3 Months Insurance [place] [id number] [facility] MEDICARE ADVANTAGE Care Teams Student Support Counselor Relationship Specialty Start Date End Date Clemente Levine MD [address] [place] [address] [place] [address] PCP - General General Internal Medicine 07/04/25
--- OUTSIDE RECORDS SUMMARY | 2025-09-04 09:09 | XMS_ITS | Clinical Summary ---
Author Organization [facility] Address [address] [place] [address] Care Team Providers Care Cot Assembler Name Role Phone Clemente Levine MD Primary Care Provider [phone] Allergies Active Allergy Reactions Criticality Noted Date [...] COPD Father 2006 after 18 mo in [place] Breast cancer Maternal Aunt Breast cancer Maternal [...] e 06/27/2023 Family and Community Support Answer [place] Recorded Help with Day-to-Day Activities Not [...] - 2023-2 5 season) 2025 TDAP/TD VACCINES (2 - Td or Tdap) 12/23/2030 021, 11/25/1996 [...] Most Recently Relevant to Health Maintenance Insurance [facility] MEDICARE REPLACE Care Teams Cot Assembler Relationship Specialty Start Date End Date Clemente Levine MD [address] [place] [address] [place] [id number] PCP - General Internal Medicine 04/21/17
== END ==
LOC: RAD 08:45
PROVIDERS: PCP Internal Medicine; Visit Provider Student in an Organized Health Care Education/Training Program
DX: M81.0 Age-related osteoporosis without current pathological fracture (principal); R79.89 Other specified abnormal findings of blood chemistry
CPT/HCPCS: 77081